=== PATIENT | male | born 1955 | race Caucasian/White ===

== ENCOUNTER → 2020-11-15 13:38 | Outpatient (BNVA) | payer OTHER, SELFPAY | PROVIDERS: PCP Internal Medicine; Referring Provider Internal Medicine; Visit Provider Urology ==

== ENCOUNTER 2021-06-12 08:17 | Outpatient (REF) | payer OTHER, SELFPAY ==
[2021-06-12 11:12] LABS: Prostate Specific Antigen 4.53 ng/mL (<0.05-4.0)
== END 2021-06-12 08:18 | disposition home or self-care (01) ==
LOC: HO.10HDL 08:17
PROVIDERS: Visit Provider Urology
DX: N40.1 Benign prostatic hyperplasia with lower urinary tract symptoms (principal); N13.8 Other obstructive and reflux uropathy
CPT/HCPCS: 36415; 84153

== ENCOUNTER → 2021-06-15 11:26 | Outpatient (BNVA) | payer OTHER, SELFPAY | PROVIDERS: PCP Internal Medicine; Visit Provider Urology ==

== ENCOUNTER 2021-06-29 11:17 | Outpatient (REF) | payer OTHER, SELFPAY ==
[2021-06-29 11:38] VITALS: BMI 32.0
[2021-06-29 11:40] VITALS: BP 140/79; PULSE 83; RESP 16; TEMP 36.7; O2SAT 98
--- NOTE | 2021-06-29 12:43 | W.PM.OPN ---
Operative Note Operative Note Date of Service: 06/29/21 Narrative: Preoperative diagnosis : Elevated psa PLAN FOR PROSTATE BIOPSY Procedure - prostate US prostate measurement Probe placed Measured in 3 dimensions for 75 cc Did not tolerate probe for local anesthetic Reschedule with OR sedation
[2021-06-29 12:45] VITALS: BP 140/75; PULSE 71; RESP 16
== END 2021-06-29 11:18 | disposition home or self-care (01) ==
LOC: HO.MS 11:17
PROVIDERS: Visit Provider Urology
PROC: (CPT 55700; principal; 2021-06-29 12:00)
DX: R97.20 Elevated prostate specific antigen [PSA] (principal)
CPT/HCPCS: 55700

== ENCOUNTER 2021-07-24 11:17 | Day surgery (SDC) | payer OTHER, SELFPAY ==
[2021-07-19 12:47] VITALS: BMI 31.9
--- NOTE | 2021-07-21 10:44 | P.CONAN_ITS ---
Documented by User: Kristie Del Rosario NP 07/21/21 10:45 HPI - Anesthesia Eval Consult details Narrative: 65yo M for Prostate Needle Biopsy PMFSH Active Problems Active Problems: All Active Problems (Updated 07/19/21 @ 12:53 by Alisia Oakley, RN) BPH w urinary obs/LUTS (Acute) Weak urinary stream (Acute) Erectile dysfunction (Acute) Past Medical History Medical History Arthritis Asthma Back pain BPH (benign prostatic hyperplasia) COVID-19 COVID-19 vaccine series completed Diabetes Elevated cholesterol Failure of attempted procedure GERD (gastroesophageal reflux disease) Gout Sleep apnea Surgical History Surgical History H/O colonoscopy History of esophagogastroduodenoscopy (EGD) History of total left knee replacement Social History Social History Are you a primary critical care transport nurse to a significant other at home: No Do you presently have visiting nurse or other home services: No Patient Tobacco Use Status: Never used Tobacco Use of substances other than those prescribed or required for medical reasons: No Have you been hit, kicked, punched, or otherwise hurt by someone within the past year? If so, by whom?: No Are you DNR?: No Advance Directives Information Provided: Yes (as above noted) Advance Directives on File: No Recently lost weight without trying: No Eating poorly because of decreased appetite: No Nutrition Risks: No Nutritional Risk Poor oral hygiene: No Meds Allergies Allergy/AdvReac Type Severity Reaction Status Date / Time aspirin Allergy Intermediate exacerbates Verified 07/19/21 12:46 asthma Home Medications Medication Instructions Recorded Confirmed Last Taken Type allopurinol 300 mg tablet 300 mg PO DAILY 11/15/20 07/19/21 Unknown History blood sugar diagnostic #10 ea 11/15/20 06/15/21 Unknown History flu vac qv 2019(18yr up)rc(PF) ml IM 11/15/20 06/15/21 Unknown History insulin glargine 100 unit/mL (3 18 unit SUBCUT QPM 11/15/20 07/19/21 Unknown History mL) subcutaneous pen lisinopril 10 mg tablet 10 mg PO DAILY 11/15/20 07/19/21 Unknown History montelukast 10 mg tablet 10 mg PO QPM 11/15/20 07/19/21 Unknown History omeprazole 20 mg capsule,delayed 20 mg PO BID 11/15/20 07/19/21 Unknown History release pen needle, diabetic 32 gauge x #50 ea 11/15/20 06/15/21 Unknown History rosuvastatin 10 mg tablet 10 mg PO DAILY 11/15/20 07/19/21 Unknown History tamsulosin 0.4 mg capsule 0.4 mg PO DAILY 11/15/20 07/19/21 Unknown History albuterol sulfate 90 mcg/actuation 2 puff INHALATION QID PRN 07/19/21 07/19/21 Unknown History aerosol inhaler metformin 500 mg tablet,extended 1 tab PO BID 07/19/21 07/19/21 Unknown History release 24 hr Exam Exam Date and Time: July 21, 2021 1044 Height,Weight and Vital Signs: Height 6 ft 1 in Weight 109.769 kg Assessment and Plan Assessment Anesthesia Assessment: Chart Reviewed Documented by User: Malia Carson MD 07/24/21 12:16 [facility] Past Medical History Medical History Arthritis Asthma Back pain BPH (benign prostatic hyperplasia) COVID-19 COVID-19 vaccine series completed Diabetes Elevated cholesterol Failure of attempted procedure GERD (gastroesophageal reflux disease) Gout Sleep apnea Surgical History Surgical History H/O colonoscopy History of esophagogastroduodenoscopy (EGD) History of total left knee replacement History of Problems with Anesthesia: No Social History Social History Are you a primary critical care transport nurse to a significant other at home: No Do you presently have visiting nurse or other home services: No Patient Tobacco Use Status: Never used Tobacco Use of substances other than those prescribed or required for medical reasons: No Have you been hit, kicked, punched, or otherwise hurt by someone within the past year? If so, by whom?: No Are you DNR?: No Advance Directives Information Provided: Yes (as above noted) Advance Directives on File: No Recently lost weight without trying: No Eating poorly because of decreased appetite: No Nutrition Risks: No Nutritional Risk Poor oral hygiene: No Meds Allergies Allergy/AdvReac Type Severity Reaction Status Date / Time aspirin Allergy Intermediate exacerbates Verified 07/19/21 12:46 asthma Home Medications Medication Instructions Recorded Confirmed Last Taken Type allopurinol 300 mg tablet 300 mg PO DAILY 11/15/20 07/19/21 Unknown History blood sugar diagnostic #10 ea 11/15/20 06/15/21 Unknown History flu vac qv 2019(18yr up)rc(PF) ml IM 11/15/20 06/15/21 Unknown History insulin glargine 100 unit/mL (3 18 unit SUBCUT QPM 11/15/20 07/19/21 Unknown History mL) subcutaneous pen lisinopril 10 mg tablet 10 mg PO DAILY 11/15/20 07/19/21 Unknown History montelukast 10 mg tablet 10 mg PO QPM 11/15/20 07/19/21 Unknown History omeprazole 20 mg capsule,delayed 20 mg PO BID 11/15/20 07/19/21 Unknown History release pen needle, diabetic 32 gauge x #50 ea 11/15/20 06/15/21 Unknown History rosuvastatin 10 mg tablet 10 mg PO DAILY 11/15/20 07/19/21 Unknown History tamsulosin 0.4 mg capsule 0.4 mg PO DAILY 11/15/20 07/19/21 Unknown History albuterol sulfate 90 mcg/actuation 2 puff INHALATION QID PRN 07/19/21 07/19/21 Unknown History aerosol inhaler metformin 500 mg tablet,extended 1 tab PO BID 07/19/21 07/19/21 Unknown History release 24 hr Exam Airway Mallampati Class: III (Full cavazos) TM Dist: >3cm Neck ROM: Full Loose/Missing/Broken Teeth: No Heart: RRR Lungs: CTA Assessment and Plan Assessment Anesthesia Assessment: Anesthesia Plan Discussed Final Anesthetic Review History of Problems with Anesthesia: No NPO: Yes ASA Class: II Final Preanesthetic Review: Meds/Allgs Chart Reviewed, Consent Obtained/Reviewed and Anes Risks/Benef Reviewed Patient Risk: Low Procedure Risk: Low Anesthetic Plan Anesthetic Plan: MAC: Disposition: Standard PACU
[2021-07-24 11:37] VITALS: BP 141/86; PULSE 83; RESP 16; TEMP 36.7; O2SAT 98
[2021-07-24 11:51] LABS: Glucose, Whole Blood 150 mg/dL (60-115)
[2021-07-24] MEDS: Lactated Ringers 1,000 ML 100 ML IVCONT (11:57)
--- NOTE | 2021-07-24 12:04 | P.HPSUR_ITS ---
Pre-Procedural Eval Section A Date of Service: 07/24/21 Section B Chief Complaint: elevated prostate - To be done in the OR Details of Present Illness: prostate biopsy - did not tolerate in minor Relevant Family History (Specify if Yes): No Relevant Social History: None Present Medications: see Short Stay Collaborative assessment Medical History: No relevant PMH History of Previous Operations: Relevant previous surgery/procedure and date(s) Allergies: Allergies Allergy/AdvReac Type Severity Reaction Status Date / Time aspirin Allergy Intermediate exacerbates Verified 07/19/21 12:46 asthma Review of Systems Sugical H&P ROS: Negative: Constitution, Cardiovascular, Respiratory, Neurological, Psychiatric, Hem-Onc, Allergic/Immunologic, Gastrointestinal, Genitourinary, Musculoskeletal, Integumentary, Endocrine and Eyes/Ears/N ose/Throat Exam Surgical H&P Exam: Normal: HEENT, Normal: Heart, Normal: Lungs, Normal: Extremities, Normal: Abdomen, Normal: Skin and Normal: Neurological Plan Diagnosis/Plan: Unchanged (prostate biopsy) I have reviewed the history and physical and performed a pertinent physical examination on my patient. No changes have occurred unless specified.
--- NOTE | 2021-07-24 12:49 | W.PM.OPN ---
Operative Note Operative Note Date of Service: 07/24/21 Narrative: Preoperative diagnosis: Elevated PSA Postoperative diagnosis: Elevated PSA Procedure: 1. transrectal ultrasound measurement of prostate 2. transrectal ultrasound-guided pudendal nerve block 3. transrectal ultrasound-guided prostate biopsy 12 core Surgeon: Dr. David Holland Anesthetic: sedation Indications for procedure: Elevated PSA 4.53, failed biopsy as outpatient Procedure: After informed consent was verified, the patient was brought into the procedure area and lay left-hand side down on the table. Patient identity confirmed. Perioperative antibiotics confirmed. Gel was placed per rectum Ultrasound probe was placed per rectum The prostate was measured in 3 dimensions Total volume equals greater than 5cm all dimensions 105 gm There were no cystic structures and no calcifications noted and the prostate was homogeneous in nature A ultrasound-guided pudendal nerve block was performed using 10 cc of 1% lidocaine. 8 cc was placed at the base and 2 cc of the apex. A 12 core biopsy was performed with 6 cores each side. Two cores were taken at the apex, mid and base. Cores were spaced between lateral and medial. He tolerated the procedure well. Was able to ambulate to bathroom after 5 minutes. Printed instructions regarding antibiotic use and common side effects such as low-grade temperature and bleeding were given.
[2021-07-24 13:00] VITALS: BP 105/70; PULSE 89; RESP 19; TEMP 36.3; O2SAT 98
[2021-07-24 13:15] VITALS: BP 124/75; PULSE 84; RESP 18; O2SAT 96
[2021-07-24 13:30] VITALS: BP 118/78; PULSE 78; RESP 16; TEMP 36.3; O2SAT 96
== END 2021-07-24 14:20 | disposition home or self-care (01) ==
PROVIDERS: Visit Provider Urology
PROC: (CPT 55700; principal; 2021-07-24 13:10)
DX: C61 Malignant neoplasm of prostate (principal); E11.9 Type 2 diabetes mellitus without complications; J45.909 Unspecified asthma, uncomplicated; Z79.4 Long term (current) use of insulin; Z79.899 Other long term (current) drug therapy; Z88.6 Allergy status to analgesic agent
CPT/HCPCS: 55700; 76942; 82947; 88305; 88344; J1956; J2250; J3010

== ENCOUNTER → 2021-08-01 14:40 | Outpatient (BNVA) | payer OTHER, SELFPAY | PROVIDERS: PCP Internal Medicine; Visit Provider Urology ==

== ENCOUNTER → 2021-08-31 09:47 | Outpatient (BNVA) | payer OTHER, SELFPAY | PROVIDERS: PCP Internal Medicine; Visit Provider Urology ==

== ENCOUNTER → 2021-09-14 11:19 | Outpatient (BNVA) | payer OTHER, SELFPAY | PROVIDERS: PCP Internal Medicine; Visit Provider Urology | DX: C61 Malignant neoplasm of prostate (principal) | CPT/HCPCS: 96402; J9217 ==

== ENCOUNTER 2021-10-16 12:22 | Day surgery (SDC) | payer OTHER, SELFPAY ==
[2021-10-16 12:36] VITALS: BP 152/86; PULSE 75; RESP 18; TEMP 36.2; O2SAT 97; BMI 31.1
[2021-10-16 12:43] LABS: Glucose, Whole Blood 108 mg/dL (60-115)
--- NOTE | 2021-10-16 13:58 | MHC.SHP ---
Pre-Procedural Eval Section A Date of Service: 10/16/21 The patient is an INPATIENT: No Changes since office visit: No Cold of Flu in the past 2 weeks, No New Medical Problems, No Changes in Medication and No Patient answered all questions The History & Physical has been completed within 30 days and I have reviewed it.: Yes Section B Chief Complaint: malignant neoplasm of prostate Allergies: Allergies Allergy/AdvReac Type Severity Reaction Status Date / Time aspirin Allergy Intermediate exacerbates Verified 08/31/21 09:48 asthma Plan Diagnosis/Plan: Unchanged (Gold seed marker placement under sedation) I have reviewed the history and physical and performed a pertinent physical examination on my patient. No changes have occurred unless specified.
--- NOTE | 2021-10-16 13:59 | HO.ANESPROP2 ---
HPI - Anesthesia Eval Consult details Narrative: 66 M for Gold seed markers PMFSH Active Problems Active Problems: All Active Problems (Updated 08/31/21 @ 10:41 by David Holland MD) Prostate cancer (Acute) Elevated PSA (Acute) BPH w urinary obs/LUTS (Acute) Weak urinary stream (Acute) Erectile dysfunction (Acute) Past Medical History Medical History Arthritis Asthma Back pain BPH (benign prostatic hyperplasia) COVID-19 COVID-19 vaccine series completed Diabetes Elevated cholesterol Failure of attempted procedure GERD (gastroesophageal reflux disease) Gout Sleep apnea Family History Family history of problems with anesthesia: No Surgical History Surgical History H/O colonoscopy History of esophagogastroduodenoscopy (EGD) History of total left knee replacement History of Problems with Anesthesia: No Social History Social History Are you a primary geriatric care manager to a significant other at home: No Do you presently have visiting nurse or other home services: No Patient Tobacco Use Status: Never used Tobacco Second Hand Smoke Exposure: No Use of substances other than those prescribed or required for medical reasons: No Are you DNR?: No Advance Directives: No Advance Directives Information Provided: Yes Advance Directives on File: No Meds Allergies Allergy/AdvReac Type Severity Reaction Status Date / Time aspirin Allergy Intermediate exacerbates Verified 08/31/21 09:48 asthma Home Medications Medication Instructions Recorded Confirmed Last Taken Type allopurinol 300 mg tablet 300 mg PO DAILY 11/15/20 07/19/21 Unknown History blood sugar diagnostic #10 ea 11/15/20 06/15/21 Unknown History flu vac qv 2019(18yr up)rc(PF) ml IM 11/15/20 06/15/21 Unknown History insulin glargine 100 unit/mL (3 18 unit SUBCUT QPM 11/15/20 07/19/21 Unknown History mL) subcutaneous pen lisinopril 10 mg tablet 10 mg PO DAILY 11/15/20 07/19/21 Unknown History montelukast 10 mg tablet 10 mg PO QPM 11/15/20 07/19/21 Unknown History omeprazole 20 mg capsule,delayed 20 mg PO BID 11/15/20 07/19/21 Unknown History release pen needle, diabetic 32 gauge x #50 ea 11/15/20 06/15/21 Unknown History rosuvastatin 10 mg tablet 10 mg PO DAILY 11/15/20 07/19/21 Unknown History tamsulosin 0.4 mg capsule 0.4 mg PO DAILY 11/15/20 07/19/21 Unknown History albuterol sulfate 90 mcg/actuation 2 puff INHALATION QID PRN 07/19/21 07/19/21 Unknown History aerosol inhaler metformin 500 mg tablet,extended 1 tab PO BID 07/19/21 07/19/21 Unknown History release 24 hr Exam Exam Date and Time: October 16, 2021 1359 Height,Weight and Vital Signs: Height 6 ft 1 in Weight 107.048 kg Last Vital Signs Temp 97.1 F 10/16/21 12:36 Pulse 75 10/16/21 12:36 Resp 18 10/16/21 12:36 BP 152/86 H 10/16/21 12:36 Pulse Ox 97 10/16/21 12:36 Pertinent Lab Results Pertinent Lab Results: Laboratory Tests 10/16/21 12:41 POC Glucose 108 Airway Mallampati Class: II TM Dist: >3cm Neck ROM: Full Loose/Missing/Broken Teeth: Yes (Chipped ) Heart: rrr Lungs: bl breath sounds Assessment and Plan Assessment Anesthesia Assessment: Anesthesia Plan Discussed Final Anesthetic Review Family History of Problems with Anesthesia: No History of Problems with Anesthesia: No NPO: Yes ASA Class: III Final Preanesthetic Review: Meds/Allgs Chart Reviewed and Anes Risks/Benef Reviewed Patient Risk: Intermediate Procedure Risk: Intermediate Anesthetic Plan Anesthetic Plan: MAC: Disposition: Standard PACU
--- NOTE | 2021-10-16 14:01 | MHC.SHP ---
Pre-Procedural Eval Section A Date of Service: 10/16/21 Section B Chief Complaint: malignant neoplasm of prostate Details of Present Illness: High-grade Kyle disease Relevant Family History (Specify if Yes): No Relevant Social History: None Present Medications: see Short Stay Collaborative assessment Medical History: No relevant PMH History of Previous Operations: Relevant previous surgery/procedure and date(s) Allergies: Allergies Allergy/AdvReac Type Severity Reaction Status Date / Time aspirin Allergy Intermediate exacerbates Verified 08/31/21 09:48 asthma Review of Systems Sugical H&P ROS: Negative: Constitution, Cardiovascular, Respiratory, Neurological, Psychiatric, Hem-Onc, Allergic/Immunologic, Gastrointestinal, Genitourinary, Musculoskeletal, Integumentary, Endocrine and Eyes/Ears/Nose/Throat Exam Surgical H&P Exam: Normal: HEENT, Normal: Heart, Normal: Lungs, Normal: Extremities, Normal: Abdomen, Normal: Skin and Normal: Neurological Plan Diagnosis/Plan: Unchanged (Gold seed markers placement) I have reviewed the history and physical and performed a pertinent physical examination on my patient. No changes have occurred unless specified.
[2021-10-16 14:45] VITALS: BP 117/53; PULSE 69; RESP 14; TEMP 36.2; O2SAT 95
--- NOTE | 2021-10-16 14:45 | W.PM.OPN ---
Operative Note Operative Note Date of Service: 10/16/21 Narrative: Preoperative diagnosis: Prostate cancer Postoperative diagnosis: Prostate cancer Procedure: 1. Transrectal ultrasound-guided pudendal nerve block 2. Transrectal ultrasound-guided gold seed placement Surgeon: Dr. David Holland Anesthetic: Sedation Indications for procedure: Prostate Cancer Procedure: After informed consent was verified, the patient was brought into the procedure area and lay left-hand side down on the table. Patient identity confirmed. Perioperative antibiotics confirmed. Gel was placed per rectum Ultrasound probe was placed per rectum A ultrasound-guided pudendal nerve block was performed using 10 cc of 1% lidocaine. 8 cc was placed at the base and 2 cc of the apex. 3 gold seed markers placed. 2 on the right, 1 on the left. The purpose is for triangulation. He tolerated the procedure well. Was able to ambulate to bathroom after 5 minutes. Printed instructions regarding antibiotic use and common side effects such as low-grade temperature and bleeding were given
[2021-10-16 15:00] VITALS: BP 132/85; PULSE 74; RESP 16; TEMP 36.2; O2SAT 95
== END 2021-10-16 15:19 | disposition home or self-care (01) ==
PROVIDERS: PCP Internal Medicine; Visit Provider Urology
PROC: (CPT 55876; principal; 2021-10-16 13:30)
DX: C61 Malignant neoplasm of prostate (principal); E11.9 Type 2 diabetes mellitus without complications; J45.909 Unspecified asthma, uncomplicated; Z79.899 Other long term (current) drug therapy; Z79.4 Long term (current) use of insulin; Z86.16 Personal history of COVID-19; Z88.8 Allergy status to other drugs, medicaments and biological substances; K21.9 Gastro-esophageal reflux disease without esophagitis
CPT/HCPCS: 55876; 76942; 82947; A4648; J2250; J3010

== ENCOUNTER → 2022-01-18 11:04 | Outpatient (BNVA) | payer OTHER, SELFPAY | PROVIDERS: PCP Internal Medicine; Visit Provider Urology | DX: C61 Malignant neoplasm of prostate (principal) | CPT/HCPCS: 51798 ==

== ENCOUNTER → 2022-03-15 09:02 | Outpatient (BNVA) | payer OTHER, SELFPAY | PROVIDERS: PCP Internal Medicine; Visit Provider Urology | DX: C61 Malignant neoplasm of prostate (principal) | CPT/HCPCS: 51798 ==

== ENCOUNTER → 2022-04-02 09:47 | Outpatient (BNVA) | payer OTHER, SELFPAY | PROVIDERS: PCP Internal Medicine; Visit Provider Urology | DX: C61 Malignant neoplasm of prostate (principal) | CPT/HCPCS: J9217 ==

== ENCOUNTER → 2022-06-19 14:45 | Outpatient (BNVA) | payer OTHER, SELFPAY | PROVIDERS: PCP Internal Medicine; Visit Provider Urology | DX: N40.1 Benign prostatic hyperplasia with lower urinary tract symptoms (principal); N13.8 Other obstructive and reflux uropathy; C61 Malignant neoplasm of prostate | CPT/HCPCS: 51798 ==

== ENCOUNTER → 2022-10-03 11:12 | Outpatient (BNVA) | payer OTHER, SELFPAY | PROVIDERS: PCP Internal Medicine; Visit Provider Urology | DX: C61 Malignant neoplasm of prostate (principal); R39.15 Urgency of urination | CPT/HCPCS: 96402; J9217 ==

== ENCOUNTER → 2023-01-02 14:46 | Outpatient (BNVA) | payer OTHER, SELFPAY | PROVIDERS: PCP Internal Medicine; Visit Provider Urology | DX: Z13.89 Encounter for screening for other disorder (principal) ==

== ENCOUNTER → 2023-04-12 12:55 | Outpatient (BNVA) | payer OTHER, SELFPAY | PROVIDERS: PCP Internal Medicine; Visit Provider Urology ==

== ENCOUNTER 2023-08-12 14:27 | Outpatient (AMB) | payer MEDICARE, OTHER, SELFPAY ==
--- NOTE | 2023-08-12 14:27 | MHC.OFFVIS ---
Intake Intake Visit Reasons: 3M PSA/Testosterone(labs?) Intake Note: Patient presents for tele visit follow up labs/prostate cancer Urology Medications: finasteride, tadaladil Blood Thinner: aspirin Websphere Commerce Developer Required: No Allergies aspirin Allergy (Intermediate, Verified 08/12/23 20:45) exacerbates asthma Medication List - Last Reconciled 08/12/23 by Shirley Ball, CMM PROGRAMMER- albuterol sulfate 90 mcg/actuation 2 puffs inhalation QID PRN allopurinol 300 mg PO DAILY blood sugar diagnostic As directed empagliflozin (Jardiance) 10 mg PO DAILY fluticasone propionate 110 mcg/actuation (Flovent HFA) 1 puff PO BID insulin glargine 18 units subcut QPM insulin glargine-yfgn (Semglee (insulin glargine-yfgn) Pen) 18 units subcut DAILY lisinopril 10 mg PO DAILY metformin ER 1 tab PO BID metoprolol succinate ER 25 mg PO DAILY montelukast 10 mg PO QPM omeprazole 20 mg PO BID pen needle, diabetic As directed rosuvastatin 20 mg PO DAILY HPI HPI Comments History of Present Illness Details Rex is a very pleasant 67-year-old male patient of Dr. Villafuerte. He has a past medical history of gout, arthritis, back pain, sleep apnea unable to tolerate CPAP, asthma, BPH, GERD, diabetes, hypercholesteremia, and prostate cancer. He is being followed up on today via telehealth for his history of prostate cancer. In discussion with the patient today reports to be doing and feeling well. Recent PSA results reviewed with the patient and his today. --Testosterone <3 and PSA <0.10 as noted below. When asked he denies any bothersome urinary issues or concerns at this time. She reports to be happy with current voiding parameters. PREVIOUS OFFICE NOTE------ Urination stable with control Hot flashes fully resolved Current other side effects include mild fatigue, some modification of strength Continue three-month follow-up till 2 years from completion of therapy Prostate cancer June 2021 PSA 4.5 Felda 4+4 - initial therapy 18 month GnRH with external beam radiation at [facility] completed December 2021 - Last GnRH 10/18 PSA 03/18 0.1 T 11, 06/18 0.1 T 3, 10/18 0.1 T3, 01/17 0.1 T3, 10/23 PSA <0.1, T<3. Initial therapy external beam radiation with 18 months hormone therapy via [facility] 01/[address] Holland June 2021 Initial PSA at diagnosis 4.5 Histologic type: Adenocarcinoma; acinar type Histologic grade:? Felda score: 4+4=8? % of pattern 4: 100%? % of pattern 5: 0% Grade group: 4 Tumor quantitation:? Number cores positive: 3? Total number of cores: 12? % of tissue involved: 5-10% of all tissue examined - left mid lateral 30%, left apex lateral 30%, left apex medial 20% - Total - 7% Periprostatic fat inv.: Not identified, Seminal vesicle inv.: Not identified, Perineural inv.: Present, LVI: Not identified Staging - 08/17 prostate MRI with 1.7 cm left apical posterior lesion, irregularity of prostate bowel injury suggestive of ISAURA, 1.4 cm pelvic sidewall node noted - 08/17 bone scan no evidence of disease PFSH Medical History Gout Arthritis Back pain Sleep apnea Asthma COVID-19 vaccine series completed COVID-19 Failure of attempted procedure BPH (benign prostatic hyperplasia) GERD (gastroesophageal reflux disease) Diabetes Elevated cholesterol Surgical History H/O colonoscopy History of esophagogastroduodenoscopy (EGD) History of total left knee replacement Social History Are you a primary landcare facilitator to a significant other at home: No Do you presently have visiting nurse or other home services: No Patient Tobacco Use Status: Never used Tobacco Second Hand Smoke Exposure: No Review of Systems Const Reports as per HPI Eyes Reports no additional complaints ENT Reports no additional complaints Card Reports as per HPI Resp Reports as per HPI GI Reports as per HPI Reports as per HPI Neuro Reports no additional complaints Psych Reports no additional complaints Endo Reports as per HPI Physical Exam Const General: cooperative Orientation/consciousness: patient oriented x3 Resp Effort & Inspection: able to speak in complete sentences Neuro General: patient oriented x3 Psych Speech and movement: Clear speech present Attitude: cooperative Thought process: Normal thought process present Thought content: Normal thought content present Insight: Fair insight present (Psych) Judgement: Fair judgement present (Psych) Assessment & Plan Assessment & Plan (1) Prostate cancer: Comment: June 2021 high-grade prostate cancer Kyle 8 - EXBRT and hormone therapy Code(s): C61 - Malignant neoplasm of prostate Plan Recent PSA and testosterone results reviewed with the patient today; as noted above. Patient denies any bothersome urinary issues or concerns at this time. Patient reports to be happy with current voiding parameters. Will obtain PSA and testosterone levels in 3 months. Follow-up in 3 months with labs to be completed prior; or sooner with any issues, concerns, and or questions Orders: Orders Testosterone, Total 3 Months C61 - Malignant neoplasm of prostate Prostate Specific Antigen 3 Months C61 - Malignant neoplasm of prostate Medications: Discontinued tadalafil Discontinued Reason: Doctor's Order 10 mg PO DAILY 90 days 90 tabs 1RF N52.9 - Male erectile dysfunction, unspecified finasteride Discontinued Reason: Doctor's Order 5 mg PO DAILY 90 days 90 tabs 1RF N52.9 - Male erectile dysfunction, unspecified Patient Instructions: The patient had an opportunity to ask questions regarding the treatment plan. All questions were answered. Physical exam, labs, and imaging were discussed and reviewed in detail. As well as risks, benefits, and discussion of treatment choices. No major barriers to understanding were identified. The patient expressed understanding and agreement with the above treatment plan. The patient was made aware they should contact our office by phone for worsening of their current condition, the appearance of new symptoms, or with any questions or concerns. Compliance is encouraged with any medications and follow up testing that is ordered. It is a privilege to be allowed the opportunity to participate in? your urological care.? Again, if you have any questions or concerns If you have any questions or concerns please do not hesitate to contact me. The office is [phone]. This note is constructed using voice recognition software. While every effort has been made to ensure accuracy juice weigher errors may have been included. Yours sincerely, MADISON Gonzalez- Telehealth Telehealth Location of provider rendering services: practice address Location of patient: address on file Patient Identification confirmed using: Name, : Yes Telehealth method: voice only Patient verbally consented to treatment: Yes Patient verbally consented to billing insurance company: Yes Patient informed of any privacy concerns related to visit: Yes Minutes spent on Phone/Video with Pt.: 15 Coding Level of Care Code Tele Est Pt Level 2 (45442) Diagnoses Prostate cancer C61 Time Spent (min) 15
== END 2023-08-12 15:12 | disposition home or self-care (01) ==
LOC: HO.HUSH 14:27
PROVIDERS: PCP Internal Medicine; Visit Provider Nurse Practitioner Family
DX: C61 Malignant neoplasm of prostate (principal)
CPT/HCPCS: 99442

== ENCOUNTER → 2023-08-12 14:27 | Outpatient (BNVA) | payer MEDICARE, OTHER, SELFPAY | PROVIDERS: PCP Internal Medicine; Visit Provider Nurse Practitioner Family ==

== ENCOUNTER 2023-12-24 14:06 | Outpatient (AMB) | payer MEDICARE, OTHER, SELFPAY ==
--- NOTE | 2023-12-24 14:24 | A.OFFVIS_ITS ---
Intake Intake Visit Reasons: 3m PSA/Testosterone(set) Intake Note: Patient presents today for follow up Prostate Cancer and labs PSA: 0.1 Total Testosterone: 36 Urology Medications: none Blood Thinner: none Patient stated he takes aspirin sometimes for headache. 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 Accompanied by: Allergies aspirin Allergy (Mild, Verified 12/24/23 20:23) exacerbates asthma Medication List - Last Reconciled 12/24/23 by KAYLENE Gonzalez albuterol sulfate 90 mcg/actuation 2 puffs inhalation QID PRN allopurinol 300 mg PO DAILY blood sugar diagnostic As directed empagliflozin (Jardiance) 10 mg PO DAILY fluticasone propionate 110 mcg/actuation (Flovent HFA) 1 puff PO BID insulin glargine 18 units subcut QPM lisinopril 10 mg PO DAILY metformin ER 1 tab PO BID metoprolol succinate ER 25 mg PO DAILY montelukast 10 mg PO QPM omeprazole 20 mg PO BID pen needle, diabetic As directed rosuvastatin 20 mg PO DAILY tadalafil (Cialis) 15 mg (1.5 x 10 mg) PO .PRN 30 days tadalafil (Cialis) 5 mg PO DAILY 90 days HPI HPI Comments History of Present Illness Details Rex is a very pleasant 68-year-old male patient of Dr. Villafuerte who was accompanied by his at today's office visit. He has a past medical history of gout, arthritis, back pain, sleep apnea unable to tolerate CPAP, asthma, BPH, GERD, diabetes, hypercholesteremia, and prostate cancer. He presents to the office today for follow-up of his prostate cancer. In discussion with the patient today reports to be doing and feeling well. Recent PSA results reviewed with the patient and his today. 12/21 Testosterone 32 and PSA <0.1 as noted and trended below. When asked he denies any bothersome urinary issues. He does continue feeling tired at times as well as experiencing erectile dysfunction. He discusses prior to his history of prostate cancer he had struggled with erectile dysfunction and tried p.o. medications and felt this was helpful. Discussed at length potential treatment options for erectile dysfunction. Discussed risks and benefits of these treatment options. Also discussed lifestyle modifications to assist with erectile dysfunction. Discussed correlation of testosterone with history of prostate cancer. Discussed slow rise in testosterone and potential for recovery in the near future. In office urinalysis results reviewed with the patient today. He otherwise offers no other issues or concerns at this time. PREVIOUS OFFICE NOTE------ Urination stable with control Hot flashes fully resolved Current other side effects include mild fatigue, some modification of strength Continue three-month follow-up till 2 years from completion of therapy After 2 years of completion of therapy will continue monitoring PSA every 6 months. Prostate cancer June 2021 PSA 4.5 [place] 4+4 - initial therapy 18 month GnRH with ext ernal beam radiation at [facility] completed December 2021 - Last GnRH 10/18 PSA 03/18 0.1 T 11, 06/18 0.1 T 3, 10/18 0.1 T3, 01/17 0.1 T3, 08/19 PSA <0.1, T<3, 12/21 PSA <0.1, T 36. Initial therapy external beam radiation with 18 months hormone therapy via [facility] 01/[address] Holland June 2021 Initial PSA at diagnosis 4.5 Histologic type: Adenocarcinoma; acinar type Histologic grade:? Kyle score: 4+4=8? % of pattern 4: 100%? % of pattern 5: 0% Grade group: 4 Tumor quantitation:? Number cores positive: 3? Total number of cores: 12? % of tissue involved: 5-10% of all tissue examined - left mid lateral 30%, left apex lateral 30%, left apex medial 20% - Total - 7% Periprostatic fat inv.: Not identified, Seminal vesicle inv.: Not identified, Perineural inv.: Present, LVI: Not identified Staging - 08/17 prostate MRI with 1.7 cm left ap ical posterior lesion, irregularity of prostate bowel injury suggestive of ISAURA, 1.4 cm pelvic sidewall node noted - 08/17 bone scan no evidence of disease PFSH Medical History Gout Arthritis Back pain Sleep apnea Asthma COVID-19 vaccine series completed COVID-19 Failure of attempted procedure BPH (benign prostatic hyperplasia) GERD (gastroesophageal reflux disease) Diabetes Elevated cholesterol Surgical History History of esophagogastroduodenoscopy (EGD) H/O colonoscopy History of total left knee replacement Social History Are you a primary home health care respiratory therapist to a significant other at home: No Do you presently have visiting nurse or other home services: No Patient Tobacco Use Status: Never used Tobacco Second Hand Smoke Exposure: No Review of Systems Const Reports as per [facility] Eyes Reports no additional complaints ENT Reports no additional complaints Card Reports as per [facility] Resp Reports as per [facility] GI Reports as per HPI Reports as per HPI Neuro Reports no additional complaints Psych Reports no additional complaints Endo Reports as per HPI Physical Exam Const General: cooperative, healthy appearing, comfortable, no acute distress, well developed, alert and awake Orientation/consciousness: patient oriented x3 Limitations: no limitations HEENT Head: Yes normal to inspection, Yes normocephalic and Yes atraumatic Ears: hearing grossly normal bilaterally Eyes General: appearance normal, both eyes and all related structures Neck Neck: Yes normal visual inspection and Yes trachea midline Chest Chest palpation & inspection: normal inspection of the chest Resp Effort & Inspection: normal respiratory effort and able to speak in complete sentences Cardio Rate: regular rate GI Inspection: Yes normal to inspection General: Yes no CVA tenderness Back/Spine/Pelvis Back: no CVA tenderness Skin General skin exam: no rashes or lesions noted Neuro General: patient oriented x3 Extrem General: Yes normal to inspection Psych Appearance: grossly normal and well kempt Mental Status: mental status grossly normal Speech and movement: Normal speech and movement present and Clear speech present Affect: normal affect Attitude: cooperative Thought process: Normal thought process present Thought content: Normal thought content present Insight: Fair insight present (Psych) Judgement: Fair judgement present (Psych) Results AMB Urinalysis, Automated UA Leukoctes 0 Franki/uL Last Edit by Natty Chopra CMA on 12/24/23 14 :34 UA Nitrite Negative Last Edit by Natty Chopra CMA on 12/24/23 14: 34 UA Urobilinogen 0.2 mg/dL Last Edit by Natty Chopra CMA on 4 14:34 UA Protein 0 mg/dL Last Edit by Natty Chopra [facility] on 12/24/23 14:34 UA pH 5.0 Last Edit by Natty Chopra [facility] on 12/24/23 14:34 UA Blood 0 Bryson/uL Last Edit by Natty Chopra [facility] on 12/24/23 14:34 UA Specific [place] 1.025 Last Edit by Natty Chopra [facility] on 14:34 UA Ketone Negative Last Edit by Natty Chopra [facility] on 12/24/23 14:3 4 UA Bilirubin 0 mg/dL Last Edit by Natty Chopra [facility] on 12/24/23 14: 34 UA Glucose 1000 mg/dL Last Edit by Natty Chopra [facility] on 12/24/23 14 :34 Results Reviewed Results Reviewed: Laboratory Last Values Urine pH (Auto) 5.0 12/24/23 14:29 Specific [place] (Auto) 1.025 12/24/23 14:29 Urine Protein (Auto) 0 mg/dL 12/24/23 14:29 Glucose (UA)(Auto) 1000 mg/dL 12/24/23 14:29 Urine Ketones (Auto) Negative 12/24/23 14:29 Urine Blood (Auto) 0 Bryson/uL 12/24/23 14:29 Urine Nitrite (Auto) Negative 12/24/23 14:29 Urine Bilirubin (Auto) 0 mg/dL 12/24/23 14:29 Urine Urobilinogen (Auto) 0.2 mg/dL 12/24/23 14:29 Leukocyte Esterase (Auto) 0 Franki/uL 12/24/23 14:29 Assessment & Plan Assessment & Plan (1) Prostate cancer: Comment: June 2021 high-grade prostate cancer [place] 8 - EXBRT and hormone therapy Code(s): C61 - Malignant neoplasm of prostate (2) Erectile dysfunction: Code(s): N52.9 - Male erectile dysfunction, unspecified Plan In office urinalysis results reviewed with the patient today; as noted above. Recent PSA and testosterone results reviewed with the patient today; as noted above. Discussed at length potential treatment options for erectile dysfunction; discussed risks and benefits of these treatment options at length. Discussed lifestyle modifications to assist with erectile dysfunction. Start low-dose Cialis as discussed and prescribed. P.r.n. prescription provided for on demand dosing. Patient otherwise denies any bothersome urinary issues. He reports to be happy with current voiding parameters. Will obtain PSA and testosterone in 3 months Follow-up in 3 months with lab to be completed prior; or sooner with any issues, concerns, and or questions. Orders: Orders AMB Urinalysis Automated Today R33.9 - Retention of urine, unspecified Prostate Specific Antigen 4 Months C61 - Malignant neoplasm of prostate Testosterone, Free/Total 3 Months C61 - Malignant neoplasm of prostate Medications: New tadalafil (Cialis) Take PRN one hour prior to sexual activity; not to exceed more than 2-3 times per week [id number] [facility] [id number] Member [id number] 15 mg (1.5 x 10 mg) PO .PRN 30 days 14 tabs 3RF tadalafil (Cialis) [id number] [id number] [id number] 5 mg PO DAILY 90 days 90 tabs 1RF Patient Instructions: The patient had an opportunity to ask questions regarding the treatment plan. All questions were answered. Physical exam, labs, and imaging were discussed and reviewed in detail. As well as risks, benefits, and discussion of treatment choices. No major barriers to understanding were identified. The patient expressed understanding and agreement with the above treatment plan. The patient was made aware they should contact our office by phone for worsening of their current condition, the appearance of new symptoms, or with any questions or concerns. Compliance is encouraged with any medications and follow up testing that is ordered. It is a privilege to be allowed the opportunity to participate in? your urological care.? Again, if you have any questions or concerns If you have any questions or concerns please do not hesitate to contact me. The office is [phone]. This note is constructed using voice recognition software. While every effort has been made to ensure accuracy seating and mobility technologist errors may have been included. Yours sincerely, KAYLENE Gonzalez Coding Level of Care Code Est Pt Level 4 (23578) Diagnoses Prostate cancer C61 Erectile dysfunction N52.9
== END 2023-12-24 15:18 | disposition home or self-care (01) ==
PROVIDERS: PCP Internal Medicine; Visit Provider Nurse Practitioner Family
DX: C61 Malignant neoplasm of prostate (principal); N52.9 Male erectile dysfunction, unspecified; R33.9 Retention of urine, unspecified
CPT/HCPCS: 99214

== ENCOUNTER → 2023-12-24 14:06 | Outpatient (BNVA) | payer MEDICARE, OTHER, SELFPAY | PROVIDERS: PCP Internal Medicine; Visit Provider Nurse Practitioner Family | DX: C61 Malignant neoplasm of prostate (principal); N52.9 Male erectile dysfunction, unspecified | CPT/HCPCS: 81003; 99212 ==

== ENCOUNTER 2024-04-24 10:32 | Outpatient (AMB) | payer MEDICARE, OTHER, SELFPAY ==
--- NOTE | 2024-04-24 10:46 | A.OFFVIS_ITS ---
Intake Visit Reasons: 4m/labs Intake Note: Patient presents today for follow up on: Prostate Cancer, CT Scan, and labs Testosterone: 167; Free Testosterone: 1.4; PSA: <0.1 Urology Medications: none Blood Thinner: none Director Dental Services Required: No Accompanied by: Allergies aspirin Allergy (Mild, Verified 04/24/24 11:42) exacerbates asthma Medication List - Last Reconciled 04/24/24 by MADISON Gonzalez- albuterol sulfate 90 mcg/actuation 2 puffs inhalation QID PRN allopurinol 300 mg PO DAILY blood sugar diagnostic As directed empagliflozin (Jardiance) 10 mg PO DAILY fluticasone propionate 110 mcg/actuation (Flovent HFA) 1 puff PO BID insulin glargine 18 units subcut QPM lisinopril 10 mg PO DAILY metformin ER 1 tab PO BID metoprolol succinate ER 25 mg PO DAILY montelukast 10 mg PO QPM omeprazole 20 mg PO BID pen needle, diabetic As directed rosuvastatin 20 mg PO DAILY semaglutide (Ozempic) mg subcut tadalafil (Cialis) 15 mg (1.5 x 10 mg) PO .PRN 30 days tadalafil (Cialis) 5 mg PO DAILY 90 days HPI Comments Details: Rex is a very pleasant 68-year-old male patient of Dr. Villafuerte who was accompanied by his at today's office visit. He has a past medical history of gout, arthritis, back pain, sleep apnea unable to tolerate CPAP, asthma, BPH, GERD, diabetes, hypercholesteremia, and prostate cancer. He presents to the office today for follow-up of his prostate cancer and nephrolithiasis. In discussion with the patient today reports to be doing and feeling well. He reports approximately 3 weeks ago seeking emergency room care at [facility] for right-sided flank pain he had been experiencing at which time a CT was ordered for further assessment evaluation. These results were reviewed with the patient and his today. 7 mm calculus in the proximal right ureter with associated mild proximal hydronephrosis. 9 mm sclerotic focus involving the L5 vertebral body. In setting of known personal history of prostate cancer, this lesion is indeterminate. Correlation with any prior outside studies is suggested. Consider assessment with bone scan per radiology report. Patient reports pain he had been experiencing has since subsided since last Saturday 04/14. However, he is unsure if he urinated any debris or renal calculi. In office urinalysis results reviewed with the patient today no microscopic hematuria noted. Discussed obtaining CT KUB for further assessment evaluation. Discussed near future bone scan. Recent PSA results reviewed with the patient and his today. 04/20 Testosterone 167 and PSA <0.1 as noted and trended below. When asked he denies any bothersome urinary issues. Discussed correlation of testosterone with history of prostate cancer. Discussed slow rise in testosterone and potential for recovery in the near future. He otherwise offers no other issues or concerns at this time. PREVIOUS OFFICE NOTE------ Urination stable with control Hot flashes fully resolved Current other side effects include mild fatigue, some modification of strength Continue three-month follow-up till 2 years from completion of therapy After 2 years of completion of therapy will continue monitoring PSA every 6 months. Prostate cancer June 2021 PSA 4.5 [place] 4+4 - initial therapy 18 month GnRH with external beam radiation at [facility] completed December 2021 - Last GnRH 10/18 PSA 03/18 0.1 T 11, 06/18 0.1 T 3, 10/18 0.1 T3, 01/17 0.1 T3, 08/19 PSA <0.1, T<3, 12/21 PSA <0.1, T 36, 04/20 PSA <0.1, T 167. Initial therapy external beam radiation with 18 months hormone therapy via [facility] 01/[address] Holland June 2021 Initial PSA at diagnosis 4.5 Histologic type: Adenocarcinoma; acinar type Histologic grade:? Kyle score: 4+4=8? % of pattern 4: 100%? % of pattern 5: 0% Grade group: 4 Tumor quantitation:? Number cores positive: 3? Total number of cores: 12? % of tissue involved: 5-10% of all tissue examined - left mid lateral 30%, left apex lateral 30%, left apex medial 20% - Total - 7% Periprostatic fat inv.: Not identified, Seminal vesicle inv.: Not identified, Perineural inv.: Present, LVI: Not identified Staging - 08/17 prostate MRI with 1.7 cm left apical posterior lesion, irregularity of prostate bowel injury suggestive of ISAURA, 1.4 cm pelvic sidewall node noted - 08/17 bone scan no evidence of disease PFSH Medical History Gout Arthritis Back pain Sleep apnea Asthma COVID-19 vaccine series completed COVID-19 Failure of attempted procedure BPH (benign prostatic hyperplasia) GERD (gastroesophageal reflux disease) Diabetes Elevated cholesterol Surgical History History of esophagogastroduodenoscopy (EGD) H/O colonoscopy History of total left knee replacement Social History Are you a primary critical care specialist to a significant other at home: No Do you presently have visiting nurse or other home services: No Patient Tobacco Use Status: Never used Tobacco Second Hand Smoke Exposure: No Review of Systems Const Reports as per HPI Eyes Reports no additional complaints ENT Reports no additional complaints Card Reports as per HPI Resp Reports as per HPI GI Reports as per HPI Reports as per HPI Neuro Reports no additional complaints Psych Reports no additional complaints Endo Reports as per HPI Physical Exam Const General: cooperative, healthy appearing, comfortable, no acute distress, well developed, alert and awake Orientation/consciousness: patient oriented x3 Limitations: no limitations HEENT Head: Yes normal to inspection, Yes normocephalic and Yes atraumatic Ears: hearing grossly normal bilaterally Eyes General: appearance normal, both eyes and all related structures Neck Neck: Yes normal visual inspection and Yes trachea midline Chest Chest palpation & inspection: normal inspection of the chest Resp Effort & Inspection: normal respiratory effort and able to speak in complete sentences Cardio Rate: regular rate GI Inspection: Yes normal to inspection General: Yes no CVA tenderness Back/Spine/Pelvis Back: no CVA tenderness Skin General skin exam: no rashes or lesions noted Neuro General: patient oriented x3 Extrem General: Yes normal to inspection Psych Appearance: grossly normal and well kempt Mental Status: mental status grossly normal Speech and movement: Normal speech and movement present and Clear speech present Affect: normal affect Attitude: cooperative Thought process: Normal thought process present Thought content: Normal thought content present Insight: Fair insight present (Psych) Judgement: Fair judgement present (Psych) Results AMB Urinalysis, Automated UA Leukoctes 0 Franki/uL Last Edit by Wendy Delgado on 04/24/24 10:59 UA Nitrite Negative Last Edit by Wendy Delgado on 04/24/24 10:59 UA Urobilinogen 0.2 mg/dL Last Edit by Wendy Delgado on 04/24/24 10:59 UA Protein 0 mg/dL Last Edit by Wendy Delgado on 04/24/24 10:59 UA pH 5.5 Last Edit by Wendy Delgado on 04/24/24 10:59 UA Blood 0 Bryson/uL Last Edit by Wendy Delgado on 04/24/24 10:59 UA Specific [place] 1.025 Last Edit by Wendy Delgado on 04/24/24 10:59 UA Ketone Negative Last Edit by Wendy Delgado on 04/24/24 10:59 UA Bilirubin 0 mg/dL Last Edit by Wendy Delgado on 04/24/24 10:59 UA Glucose 500 mg/dL Last Edit by Wendy Delgado on 04/24/24 10:59 Results Reviewed Results Reviewed: Laboratory Last Values Urine pH (Auto) 5.5 04/24/24 10:58 Specific [place] (Auto) 1.025 04/24/24 10:58 Urine Protein (Auto) 0 mg/dL 04/24/24 10:58 Glucose (UA)(Auto) 500 mg/dL 04/24/24 10:58 Urine Ketones (Auto) Negative 04/24/24 10:58 Urine Blood (Auto) 0 Bryson/uL 04/24/24 10:58 Urine Nitrite (Auto) Negative 04/24/24 10:58 Urine Bilirubin (Auto) 0 mg/dL 04/24/24 10:58 Urine Urobilinogen (Auto) 0.2 mg/dL 04/24/24 10:58 Leukocyte Esterase (Auto) 0 Franki/uL 04/24/24 10:58 Assessment & Plan Assessment & Plan (1) Prostate cancer: Comment: June 2021 high-grade prostate cancer [place] 8 - EXBRT and hormone therapy Code(s): C61 - Malignant neoplasm of prostate Category: Medical (2) Hydronephrosis concurrent with and due to calculi of kidney and ureter: Code(s): N13.2 - Hydronephrosis with renal and ureteral calculous obstruction Category: Medical (3) Nephrolithiasis: Code(s): N20.0 - Calculus of kidney Category: Medical Plan In office urinalysis results reviewed with the patient today; as noted above. Recent PSA and testosterone results reviewed with the patient and his today; as noted above. Recent CT results from [facility] were reviewed with the patient today Discussed obtaining stat CT KUB for further assessment evaluation as patient is unsure if he has passed his kidney stone. Discussed, educated, and stressed the importance of adequate hydration and relation to nephrolithiasis as well as overall health and well-being. He currently denies any bothersome urinary issues or concerns. He reports to be happy with his current voiding parameters. Discussed possible near future ureteroscopy however will await CT KUB results for further assessment evaluation; this was discussed at length. Follow-up in 1-2 weeks with imaging to be completed prior; or sooner with any issues, concerns, and or questions. Orders: Orders AMB Urinalysis Automated Today Z13.9 - Encounter for screening, unspecified CT kidney stone Today N13.2 - Hydronephrosis with renal and ureteral calculous obstruction, N20.0 - Calculus of kidney Patient Instructions: The patient had an opportunity to ask questions regarding the treatment plan. All questions were answered. Physical exam, labs, and imaging were discussed and reviewed in detail. As well as risks, benefits, and discussion of treatment choices. No major barriers to understanding were identified. The patient expressed understanding and agreement with the above treatment plan. The patient was made aware they should contact our office by phone for worsening of their current condition, the appearance of new symptoms, or with any questions or concerns. Compliance is encouraged with any medications and follow up testing that is ordered. It is a privilege to be allowed the opportunity to participate in? your urological care.? Again, if you have any questions or concerns If you have any questions or concerns please do not hesitate to contact me. The office is [phone]. This note is constructed using voice recognition software. While every effort has been made to ensure accuracy at home independent call center agent errors may have been included. Yours sincerely, KAYLENE Gonzalez Coding Level of Care Code Est Pt Level 4 (77163) Diagnoses Prostate cancer C61 Hydronephrosis concurrent with and due to calculi of kidney and ureter N13.2 Nephrolithiasis N20.0
== END 2024-04-24 11:16 | disposition home or self-care (01) ==
PROVIDERS: PCP Internal Medicine; Visit Provider Nurse Practitioner Family
DX: C61 Malignant neoplasm of prostate (principal); N13.2 Hydronephrosis with renal and ureteral calculous obstruction; N20.0 Calculus of kidney; Z13.9 Encounter for screening, unspecified
CPT/HCPCS: 99214

== ENCOUNTER → 2024-04-24 10:32 | Outpatient (BNVA) | payer MEDICARE, OTHER, SELFPAY | PROVIDERS: PCP Internal Medicine; Visit Provider Nurse Practitioner Family | DX: N20.0 Calculus of kidney (principal); N13.2 Hydronephrosis with renal and ureteral calculous obstruction; C61 Malignant neoplasm of prostate | CPT/HCPCS: 81003; 99212 ==

== ENCOUNTER 2024-04-29 14:33 | Outpatient (REF) | payer MEDICARE, OTHER, SELFPAY ==
--- NOTE | ~2024-04-29 | CT_ITS ---
EXAMINATION: CT SCAN OF THE ABDOMEN AND PELVIS WITHOUT CONTRAST CLINICAL INFORMATION: Additional Information: 688 mgycm kidney stones : . COMPARISON: None. TECHNIQUE: CT scan of the abdomen and pelvis was performed without contrast. Additional sagittal and coronal two-dimensional reconstruction imaging was obtained at the acquisition workstation. FINDINGS: LUNG BASES: Normal. LIVER: Normal. GALLBLADDER AND BILIARY TREE: Normal. PANCREAS: Normal. SPLEEN: Normal. ADRENAL GLANDS: Normal. URINARY TRACT (KIDNEYS, URETERS, BLADDER): There is a 6 mm proximal right ureteral calculus located 8 cm distal to the right renal pelvis. The calculus measures 6 mm period. Hounsfield units 949. There is mild dilatation of the urinary tract proximal to this calculus. No additional calculi in the urinary tract or right kidney Left kidney normal without calculus left ureter normal. No hydronephrosis. Bladder normal. PELVIC ORGANS: Metallic foci within the prostate. PERITONEAL CAVITY: Normal. MESENTERY/OMENTUM: Normal. GI TRACT (STOMACH, SMALL BOWEL, LARGE BOWEL): Normal. APPENDIX: Normal. LYMPH NODES: Normal. VASCULAR: Overall mild to moderate arterial calcification most prominent in the distal aorta ABDOMINAL WALL/SOFT TISSUES: Normal. SKELETAL: Severe degenerative disc changes at L5-S1 with vacuum disc phenomenon noted. Additional scattered nodules spondylosis throughout the partially visualized thoracolumbar spine.. CT/CT kidney stone IMPRESSION: 1. 6 mm proximal right ureteral calculus. Mild dilatation of the right collecting system proximal to the calculus 2. Mild to moderate arterial calcification. 3. Degenerative disc disease L5-S1.
== END 2024-04-29 14:34 | disposition home or self-care (01) ==
LOC: HO.CT 14:33
PROVIDERS: PCP Internal Medicine; Visit Provider Nurse Practitioner Family
DX: N13.2 Hydronephrosis with renal and ureteral calculous obstruction (principal)
CPT/HCPCS: 74176

== ENCOUNTER 2024-05-05 09:54 | Outpatient (AMB) | payer MEDICARE, OTHER, SELFPAY ==
--- NOTE | 2024-05-05 10:08 | A.OFFVIS_ITS ---
Intake Visit Reasons: 2 weeks follow up/ CT Intake Note: Patient presents today for follow up on: CT Scan Results Imagin04/29/24 Urology Medications: Tadalafil Blood Thinner: none Poll Watcher Required: No Accompanied by: Allergies aspirin Allergy (Mild, Verified 05/05/24 22:23) exacerbates asthma Medication List - Last Reconciled 05/05/24 by CONNOR GonzalezP- albuterol sulfate 90 mcg/actuation 2 puffs inhalation QID PRN allopurinol 300 mg PO DAILY blood sugar diagnostic As directed empagliflozin (Jardiance) 10 mg PO DAILY fluticasone propionate 110 mcg/actuation (Flovent HFA) 1 puff PO BID insulin glargine 18 units subcut QPM lisinopril 10 mg PO DAILY metformin ER 1 tab PO BID metoprolol succinate ER 25 mg PO DAILY montelukast 10 mg PO QPM omeprazole 20 mg PO BID pen needle, diabetic As directed rosuvastatin 20 mg PO DAILY semaglutide (Ozempic) mg subcut tadalafil (Cialis) 15 mg (1.5 x 10 mg) PO .PRN 30 days tadalafil (Cialis) 5 mg PO DAILY 90 days HPI Comments Details: Rex is a very pleasant 68-year-old male patient of Dr. Villafuerte who was accompanied by his at today's office visit. He has a past medical history of gout, arthritis, back pain, sleep apnea unable to tolerate CPAP, asthma, BPH, GERD, diabetes, hypercholesteremia, and prostate cancer. He presents to the office today for follow-up of his nephrolithiasis. Of note, patient was seen approximately 2 weeks ago at which time a CT KUB was ordered for further assessment evaluation. These results were reviewed with the patient today. 6 mm proximal right ureteral calculusagain noted. Mild dilatation of the right collecting system proximal to the calculus. Previous CT from [facility] noted 9 mm sclerotic focus involving the L5 vertebral body. In setting of known personal history of prostate cancer, this lesion is indeterminate. Correlation with any prior outside studies is suggested. Consider assessment with bone scan per radiology report. However, not noted on most recent CT KUB. Will obtain bone scan for further assessment evaluation. In discussion with the patient today reports to be doing and feeling well. Patient reports infrequent right-sided flank pain he otherwise denies any bothersome urinary issues or concerns. He denies denies urinary urgency, urinary frequency, incontinence, nocturia, hematuria, dysuria, foul smelling urine, changes to urinary stream, fever, and or chills. He is happy with his current voiding parameters. He otherwise offers no other issues or concerns at this time. PREVIOUS OFFICE NOTE------ Urination stable with control Hot flashes fully resolved Current other side effects include mild fatigue, some modification of strength Continue three-month follow-up till 2 years from completion of therapy After 2 years of completion of therapy will continue monitoring PSA every 6 months. Prostate cancer June 2021 PSA 4.5 [place] 4+4 - initial therapy 18 month GnRH with external beam radiation at [facility] completed December 2021 - Last GnRH 10/18 PSA 03/18 0.1 T 11, 06/18 0.1 T 3, 10/18 0.1 T3, 01/17 0.1 T3, 08/19 PSA <0.1, T<3, 12/21 PSA <0.1, T 36, 04/20 PSA <0.1, T 167. Initial therapy external beam radiation with 18 months hormone therapy via [facility] 01/[address] Holland June 2021 Initial PSA at diagnosis 4.5 Histologic type: Adenocarcinoma; acinar type Histologic grade:? Kyle score: 4+4=8? % of pattern 4: 100%? % of pattern 5: 0% Grade group: 4 Tumor quantitation:? Number cores positive: 3? Total number of cores: 12? % of tissue involved: 5-10% of all tissue examined - left mid lateral 30%, left apex lateral 30%, left apex medial 20% - Total - 7% Periprostatic fat inv.: Not identified, Seminal vesicle inv.: Not identified, Perineural inv.: Present, LVI: Not identified Staging - 08/17 prostate MRI with 1.7 cm left apical posterior lesion, irregularity of prostate bowel injury suggestive of ISAURA, 1.4 cm pelvic sidewall node noted - 08/17 bone scan no evidence of disease [facility] Medical History Gout Arthritis Back pain Sleep apnea Asthma COVID-19 vaccine series completed COVID-19 Failure of attempted procedure BPH (benign prostatic hyperplasia) GERD (gastroesophageal reflux disease) Diabetes Elevated cholesterol Surgical History History of esophagogastroduodenoscopy (EGD) H/O colonoscopy History of total left knee replacement Social History Are you a primary career portals teacher to a significant other at home: No Do you presently have visiting nurse or other home services: No Patient Tobacco Use Status: Never used Tobacco Second Hand Smoke Exposure: No Review of Systems Const Reports as per [facility] Eyes Reports no additional complaints ENT Reports no additional complaints Card Reports as per [facility] Resp Reports as per [facility] GI Reports as per [facility] Reports as per [facility] Neuro Reports no additional complaints Psych Reports no additional complaints Endo Reports as per [facility] Physical Exam Const General: cooperative, healthy appearing, comfortable, no acute distress, well developed, alert and awake Orientation/consciousness: patient oriented x3 Limitations: no limitations HEENT Head: Yes normal to inspection, Yes normocephalic and Yes atraumatic Ears: hearing grossly normal bilaterally Eyes General: appearance normal, both eyes and all related structures Neck Neck: Yes normal visual inspection and Yes trachea midline Chest Chest palpation & inspection: normal inspection of the chest Resp Effort & Inspection: normal respiratory effort and able to speak in complete sentences Cardio Rate: regular rate GI Inspection: Yes normal to inspection General: Yes no CVA tenderness Back/Spine/Pelvis Back: no CVA tenderness Skin General skin exam: no rashes or lesions noted Neuro General: patient oriented x3 Extrem General: Yes normal to inspection Psych Appearance: grossly normal and well kempt Mental Status: mental status grossly normal Speech and movement: Normal speech and movement present and Clear speech present Affect: normal affect Attitude: cooperative Thought process: Normal thought process present Thought content: Normal thought content present Insight: Fair insight present (Psych) Judgement: Fair judgement present (Psych) Results AMB Urinalysis, Automated UA Leukoctes 0 Franki/uL Last Edit by Wendy Delgado on 05/05/24 10:20 UA Nitrite Negative Last Edit by Wendy Delgado on 05/05/24 10:20 UA Urobilinogen 0.2 mg/dL Last Edit by Wendy Delgado on 05/05/24 10:20 UA Protein 0 mg/dL Last Edit by Wendy Delgado on 05/05/24 10:20 UA pH 5.5 Last Edit by Wendy Delgado on 05/05/24 10:20 UA Blood 0 Bryson/uL Last Edit by Wendy Delgado on 05/05/24 10:20 UA Specific [place] 1.020 Last Edit by Wendy Delgado on 05/05/24 10:20 UA Ketone Negative Last Edit by Wendy Delgado on 05/05/24 10:20 UA Bilirubin 0 mg/dL Last Edit by Wendy Delgado on 05/05/24 10:20 UA Glucose 1000 mg/dL Last Edit by Wendy Delgado on 05/05/24 10:20 Results Reviewed Results Reviewed: Laboratory Last Values Urine pH (Auto) 5.5 05/05/24 10:12 Specific [place] (Auto) 1.020 05/05/24 10:12 Urine Protein (Auto) 0 mg/dL 05/05/24 10:12 Glucose (UA)(Auto) 1000 mg/dL 05/05/24 10:12 Urine Ketones (Auto) Negative 05/05/24 10:12 Urine Blood (Auto) 0 Bryson/uL 05/05/24 10:12 Urine Nitrite (Auto) Negative 05/05/24 10:12 Urine Bilirubin (Auto) 0 mg/dL 05/05/24 10:12 Urine Urobilinogen (Auto) 0.2 mg/dL 05/05/24 10:12 Leukocyte Esterase (Auto) 0 Franki/uL 05/05/24 10:12 Date of Service: 04/29/24 EXAMINATION: CT SCAN OF THE ABDOMEN AND PELVIS WITHOUT CONTRAST FINDINGS: LUNG BASES: Normal. LIVER: Normal. GALLBLADDER AND BILIARY TREE: Normal. PANCREAS: Normal. SPLEEN: Normal. ADRENAL GLANDS: Normal. URINARY TRACT (KIDNEYS, URETERS, BLADDER): There is a 6 mm proximal right ureteral calculus located 8 cm distal to the right renal pelvis. The calculus measures 6 mm period. Hounsfield units 949. There is mild dilatation of the urinary tract proximal to this calculus. No additional calculi in the urinary tract or right kidney Left kidney normal without calculus left ureter normal. No hydronephrosis. Bladder normal. PELVIC ORGANS: Metallic foci within the prostate. PERITONEAL CAVITY: Normal. MESENTERY/OMENTUM: Normal. GI TRACT (STOMACH, SMALL BOWEL, LARGE BOWEL): Normal. APPENDIX: Normal. LYMPH NODES: Normal. VASCULAR: Overall mild to moderate arterial calcification most prominent in the distal aorta ABDOMINAL WALL/SOFT TISSUES: Normal. SKELETAL: Severe degenerative disc changes at L5-S1 with vacuum disc phenomenon noted. Additional scattered nodules spondylosis throughout the partially visualized thoracolumbar spine. IMPRESSION: 1. 6 mm proximal right ureteral calculus. Mild dilatation of the right collecting system proximal to the calculus 2. Mild to moderate arterial calcification. 3. Degenerative disc disease L5-S1. Assessment & Plan Assessment & Plan (1) Nephrolithiasis: Code(s): N20.0 - Calculus of kidney Category: Medical (2) Hydronephrosis concurrent with and due to calculi of kidney and ureter: Code(s): N13.2 - Hydronephrosis with renal and ureteral calculous obstruction Category: Medical (3) Prostate cancer: Comment: June 2021 high-grade prostate cancer [place] 8 - EXBRT and hormone therapy Code(s): C61 - Malignant neoplasm of prostate Category: Medical Plan: Ureteroscopy We discussed the nature of the decision and reasonable alternatives for performing ureteroscopy. Options such as medical therapy were discussed. Interventions include chemical dissolution, ESWL, ureteroscopy with laser lithotripsy and stent placement, PCNL. The relative uncertainties and benefits related to each alternate procedure were adequately discussed. General surgical risks including, but not limited to - pain, bleeding, infection, myocardial infarction, pulmonary embolus, deep vein thrombosis and cerebrovascular accident which may result in further hospitalization were discussed.? Full disclosure of the procedure as well as all major risks, benefits and complications were discussed including but not limited to damage to the urethra, bladder and kidney infection, damage to the ureter, stent migration or malposition, scarring to the renal pelvis, remnant stone fragments, subsequent stone passage with need for secondary procedures. The overall secondary procedure rate is approximately 10-15%.? The overall clearance rate is approximately 90-95%. Success of the procedure in the short-term does not necessarily guarantee that long-term success will be maintained. Suitable follow up will need to be maintained. The patient showed understanding of discussion and wishes to proceed with - cystoscopy, retrograde, ureteroscopy, possible lithotripsy/stone basketing and stent on the right side Plan In office urinalysis results reviewed with the patient today; as noted above. Recent CT results reviewed with the patient today; as noted above. Discussed at length further treatment options for obstructing stone. All questions were answered. He currently denies any bothersome urinary issues or concerns. He reports to be happy with his current voiding parameters. Discussed, educated, and stressed the importance of adequate hydration. Discussed possible near future metabolic workup with 24 hour urine collection and labs. Patient with a history of prostate cancer will continue with surveillance monitoring. Will obtain bone scan for further assessment evaluation. Will schedule for cystoscopy, retrograde, ureteroscopy, possible lithotripsy/stone basketing and stent on the right side. Follow-up per doctor's orders; or sooner with any issues, concerns, and or questions. Orders: Orders NM bone scan whole body Today C61 - Malignant neoplasm of prostate, C79.51 - Secondary malignant neoplasm of bone AMB Urinalysis Automated Today Z13.9 - Encounter for screening, unspecified Patient Instructions: The patient had an opportunity to ask questions regarding the treatment plan. All questions were answered. Physical exam, labs, and imaging were discussed and reviewed in detail. As well as risks, benefits, and discussion of treatment choices. No major barriers to understanding were identified. The patient e xpressed understanding and agreement with the above treatment plan. The patient was made aware they should contact our office by phone for worsening of their current condition, the appearance of new symptoms, or with any questions or concerns. Compliance is encouraged with any medications and follow up testing that is ordered. It is a privilege to be allowed the opportunity to participate in? your urological care.? Again, if you have any questions or concerns If you have any questions or concerns please do not hesitate to contact me. The office is [phone]. This note is constructed using voice recognition software. While every effort has been made to ensure accuracy floral manager errors may have been included. Yours sincerely, KAYLENE Gonzalez Coding Level of Care Code Est Pt Level 4 (78388) Diagnoses Nephrolithiasis N20.0 Hydronephrosis concurrent with and due to calculi of kidney and ureter N13.2 Prostate cancer C61
== END 2024-05-05 11:05 | disposition home or self-care (01) ==
PROVIDERS: PCP Internal Medicine; Visit Provider Nurse Practitioner Family
DX: N20.0 Calculus of kidney (principal); N13.2 Hydronephrosis with renal and ureteral calculous obstruction; C61 Malignant neoplasm of prostate; Z13.9 Encounter for screening, unspecified
CPT/HCPCS: 99214

== ENCOUNTER → 2024-05-05 09:54 | Outpatient (BNVA) | payer MEDICARE, OTHER, SELFPAY | PROVIDERS: PCP Internal Medicine; Visit Provider Nurse Practitioner Family | DX: N20.1 Calculus of ureter (principal); C61 Malignant neoplasm of prostate | CPT/HCPCS: 81003; 99212 ==

== ENCOUNTER 2024-05-26 06:47 | Day surgery (SDC) | payer MEDICARE, OTHER, SELFPAY ==
[2024-05-22 16:02] VITALS: BMI 30.3
--- NOTE | 2024-05-25 10:23 | HO.ANESPROP2 ---
Documented by User: Kristie Del Rosario NP 05/25/24 10:24 HPI - Anesthesia Eval Consult details Narrative: 68yo M for Right Cystoscopy, Ureteroroscopy, Retro, Laser with possible stent placement Anesthesia Pre-Procedure Meds Is the patient on any of the following meds?: GLP1/DPP4 and SGLT2 Inhib PMFSH Active Problems Active Problems: All Active Problems Nephrolithiasis (Acute) Hydronephrosis concurrent with and due to calculi of kidney and ureter (Acute) Urinary urgency (Acute) Prostate cancer (Acute) Elevated PSA (Acute) Erectile dysfunction (Acute) Weak urinary stream (Acute) BPH w urinary obs/LUTS (Acute) Past Medical History Medical History Gout Arthritis Back pain Sleep apnea Asthma COVID-19 vaccine series completed COVID-19 Failure of attempted procedure BPH (benign prostatic hyperplasia) GERD (gastroesophageal reflux disease) Diabetes Elevated cholesterol Family History Family history of problems with anesthesia: No Surgical History Surgical History History of esophagogastroduodenoscopy (EGD) H/O colonoscopy History of total left knee replacement History of Problems with Anesthesia: No Social History Social History Household Members: Spouse Housing: House Are you a primary career development manager to a significant other at home: No Do you presently have visiting nurse or other home services: No Patient Tobacco Use Status: Former Tobacco user Tobacco use type: Cigarette Smoked in Last 30 Days: No Second Hand Smoke Exposure: No Use of substances other than those prescribed or required for medical reasons: No Have you been hit, kicked, punched, or otherwise hurt by someone within the past year? If so, by whom?: No Are you DNR?: No Advance Directives: No (will bring dos, if able to find) Advance Directives Information Provided: Yes Advance Directives on File: No Recently lost weight without trying: No Nutrition Risks: No Nutritional Risk Poor oral hygiene: No Meds Allergies Allergy/AdvReac Type Severity Reaction Status Date / Time No Known Allergies Allergy Verified 05/22/24 16:01 Home Medications ?Medication ?Instructions ?Recorded ?Confirmed ?Last Taken ?Type allopurinol 300 mg tablet 300 mg PO DAILY 11/15/20 05/22/24 Unknown History blood sugar diagnostic #10 ea 11/15/20 01/02/23 Unknown History insulin glargine 100 unit/mL (3 18 unit subcut QPM 11/15/20 05/22/24 Unknown History mL) subcutaneous pen lisinopril 10 mg tablet 10 mg PO DAILY 11/15/20 05/22/24 Unknown History montelukast 10 mg tablet 10 mg PO QPM 11/15/20 05/22/24 Unknown History omeprazole 20 mg capsule,delayed 20 mg PO BID 11/15/20 05/22/24 05/26/24 History release pen needle, diabetic 32 gauge x #50 ea 11/15/20 01/02/23 Unknown History albuterol sulfate 90 mcg/actuation 2 puff inhalation QID PRN Wheezing 07/19/21 05/22/24 Unknown History aerosol inhaler metformin 500 mg tablet,extended 1 tab PO BID 07/19/21 05/22/24 Unknown History release 24 hr empagliflozin 10 mg tablet 10 mg PO DAILY 01/18/22 05/22/24 05/22/24 History (Jardiance) fluticasone propionate 110 1 puff PO BID 03/15/22 05/22/24 Unknown History mcg/actuation HFA aerosol inhaler (Flovent HFA) metoprolol succinate 25 mg 25 mg PO DAILY 01/02/23 05/22/24 05/26/24 History tablet,extended release 24 hr rosuvastatin 20 mg tablet 20 mg PO DAILY 01/02/23 05/22/24 Unknown History semaglutide 0.25 mg or 0.5 mg (2 mg subcut 04/24/24 05/16/24 History mg/3 mL) subcutaneous pen injector (Ozempic) Exam Height,Weight and Vital Signs: Height 6 ft 1 in Weight 104.326 kg Assessment and Plan Assessment Anesthesia Assessment: Chart Reviewed Final Anesthetic Review Family History of Problems with Anesthesia: No History of Problems with Anesthesia: No Documented by User: Malia Carson MD 05/26/24 07:57 [facility] Past Medical History Medical History Gout Arthritis Back pain Sleep apnea Asthma COVID-19 vaccine series completed COVID-19 Failure of attempted procedure BPH (benign prostatic hyperplasia) GERD (gastroesophageal reflux disease) Diabetes Elevated cholesterol Surgical History Surgical History History of esophagogastroduodenoscopy (EGD) H/O colonoscopy History of total left knee replacement Social History Social History Household Members: Spouse Housing: House Are you a primary career development manager to a significant other at home: No Do you presently have visiting nurse or other home services: No Patient Tobacco Use Status: Former Tobacco user Tobacco use type: Cigarette Smoked in Last 30 Days: No Second Hand Smoke Exposure: No Use of substances other than those prescribed or required for medical reasons: No Have you been hit, kicked, punched, or otherwise hurt by someone within the past year? If so, by whom?: No Are you DNR?: No Advance Directives: No (will bring dos, if able to find) Advance Directives Information Provided: Yes Advance Directives on File: No Recently lost weight without trying: No Nutrition Risks: No Nutritional Risk Poor oral hygiene: No Meds Allergies Allergy/AdvReac Type Severity Reaction Status Date / Time No Known Allergies Allergy Verified 05/22/24 16:01 Home Medications ?Medication ?Instructions ?Recorded ?Confirmed ?Last Taken ?Type allopurinol 300 mg tablet 300 mg PO DAILY 11/15/20 05/22/24 Unknown History blood sugar diagnostic #10 ea 11/15/20 01/02/23 Unknown History insulin glargine 100 unit/mL (3 18 unit subcut QPM 11/15/20 05/22/24 Unknown History mL) subcutaneous pen lisinopril 10 mg tablet 10 mg PO DAILY 11/15/20 05/22/24 Unknown History montelukast 10 mg tablet 10 mg PO QPM 11/15/20 05/22/24 Unknown History omeprazole 20 mg capsule,delayed 20 mg PO BID 11/15/20 05/22/24 05/26/24 History release pen needle, diabetic 32 gauge x #50 ea 11/15/20 01/02/23 Unknown History albuterol sulfate 90 mcg/actuation 2 puff inhalation QID PRN Wheezing 07/19/21 05/22/24 Unknown History aerosol inhaler metformin 500 mg tablet,extended 1 tab PO BID 07/19/21 05/22/24 Unknown History release 24 hr empagliflozin 10 mg tablet 10 mg PO DAILY 01/18/22 05/22/24 05/22/24 History (Jardiance) fluticasone propionate 110 1 puff PO BID 03/15/22 05/22/24 Unknown History mcg/actuation HFA aerosol inhaler (Flovent HFA) metoprolol succinate 25 mg 25 mg PO DAILY 01/02/23 05/22/24 05/26/24 History tablet,extended release 24 hr rosuvastatin 20 mg tablet 20 mg PO DAILY 01/02/23 05/22/24 Unknown History semaglutide 0.25 mg or 0.5 mg (2 mg subcut 04/24/24 05/16/24 History mg/3 mL) subcutaneous pen injector (Ozempic) Exam Airway Mallampati Class: III TM Dist: >3cm Neck ROM: Full Loose/Missing/Broken Teeth: No Heart: RRR Lungs: CTA Assessment and Plan Final Anesthetic Review NPO: Yes ASA Class: III Final Preanesthetic Review: Meds/Allgs Chart Reviewed, Consent Obtained/Reviewed and Anes Risks/Benef Reviewed Patient Risk: Intermediate Procedure Risk: Low Anesthetic Plan Anesthetic Plan: GA Disposition: Standard PACU
--- NOTE | ~2024-05-26 | FL_ITS ---
EXAMINATION: XR FLUOROSCOPY WITH IMAGES CLINICAL INFORMATION: Cystoscopy and right retrograde ureteroscopy/stent placement. COMPARISON: CT abdomen and pelvis 03/30/2024. TECHNIQUE: Fluoroscopy provided to: Dr. Martins Fluoroscopy time: 36.2 seconds DAP: N/A Total dose: 18.54 mGy Images: 6 FINDINGS: Sequential images during cystoscopy and retrograde stent placement right ureter after contrast injection. FL/FL guidance in OR IMPRESSION: Fluoroscopic guidance. Please refer to the full operative report for details. Electronically signed by: Luis Gibson MD 07/22/2024 05:16 PM EDT
[2024-05-26 07:02] VITALS: BP 145/81; PULSE 78; RESP 20; TEMP 36.6; O2SAT 97
[2024-05-26 07:10] LABS: Glucose, Whole Blood 200 mg/dL (60-115)
[2024-05-26] MEDS: Lactated Ringers 1,000 ML 100 ML IVCONT (07:21)
--- NOTE | 2024-05-26 08:46 | MHC.SHP ---
Pre-Procedural Eval Section A - 24 Hr Update-Section A only Date of Service: 05/26/24 The patient is an INPATIENT: No The patient has been examined within 24 hours of the surgical procedure. The History & Physical has been completed within 30 days and I have reviewed it.: Yes Section B - Complete if H&P > 30 days Chief Complaint: Calculus of kidney Allergies: Allergies Allergy/AdvReac Type Severity Reaction Status Date / Time No Known Allergies Allergy Verified 05/22/24 16:01 Plan Diagnosis/Plan: Unchanged I have reviewed the history and physical and performed a pertinent physical examination on my patient. No changes have occurred unless specified. Plan for Cystoscopy, Right ureteroscopy, laser lithotripsy, ureteral stent. Risks discussed included but not limited to, possible need to repeat procedure if stone is not completely fragmented, Irritative voiding symptoms, bladder spasms, urgency, blood in urine. Time Spent With Patient Time: Total time managing care of this patient today ____ minutes.
[2024-05-26 10:00] VITALS: BP 162/84; PULSE 69; RESP 18; TEMP 36.1; O2SAT 100
[2024-05-26 10:05] VITALS: BP 150/84; PULSE 62; RESP 16; O2SAT 97
[2024-05-26 10:10] VITALS: BP 158/65; PULSE 67; RESP 16; O2SAT 96
[2024-05-26 10:15] VITALS: BP 153/81; PULSE 64; RESP 16; O2SAT 96
--- NOTE | 2024-05-26 10:20 | P.OP_ITS ---
Operative Note Operative Note Date of Service: 05/26/24 Narrative: PreOperative Diagnosis:?? Right ureteral stone Post Operative Diagnosis:?? Right ureteral stone Procedure: - cystoscopy, right retrograde, right ureteroscopy stent insertion, 7 Estonian by 28 cm Surgeon:?Dr Gerry Martins Anesthesia:? General Indications for procedure: Rex is a 68 y/o male with right flank pain. CTAP: right mid-proximal ureteral stone right hydronephrosis Procedure: After informed consent was verified the patient was brought to the operating placed on the OR table in supine position.? General Anesthesia was administered per protocol.? The patient was placed in lithotomy position, prepped and draped in the usual sterile fashion.? Safety pause time-out and side of surgery confirmed.? Antibiotics confirmed. 2% lidocaine jelly 10 mL was passed transurethrally. A 22 Estonian cystoscope was inserted transurethrally, the bulbous urethra was within normal limits. The prostatic urethra was nonobstructive. The bladder was visualized.? Both ureteric orifices were in normal position. An open-ended ureteral catheter was passed into the right ureteral orifice and a retrograde examination was performed. There was a filling defect in the mid ureter and dilatation of the proximal ureter. A guidewire was passed through the ureteral catheter into the kidney. The balloon dilator size 12fr was passed over the guide -wire the balloon was inflated to 10 mmHg and the intramural ureter was dilated for 40 seconds. The balloon was deflated and removed. After removing the balloon dilator a 2nd guidewire was then passed into the kidney to use as a safety. The cystoscope was removed, leaving both guidewires in place. One guidewire was used as the safety and was attached to the draping. The semi rigid ureteroscope was passed over one of the guidewires to the mid ureter where there was narrowing and inflammation, the stone was not visualized. The ureteroscope was removed. The cystoscope was passed over the safety guidewire. A? 7 Estonian by 28 cm stent was placed into the ureter and renal pelvis under a combination of fluoroscopy and direct visualization. The bladder was emptied.? The rigid cystoscope was removed. ? The patient tolerated the procedure well and was brought to the recovery room in stable condition. Complications: None Drains: Ureteral stent as dictated above
[2024-05-26 10:30] VITALS: BP 153/76; PULSE 62; RESP 16; TEMP 36.1; O2SAT 96
== END 2024-05-26 11:12 | disposition home or self-care (01) ==
PROVIDERS: PCP Internal Medicine; Visit Provider Urology
PROC: (CPT 52351; principal; 2024-05-26 08:50)
DX: N13.2 Hydronephrosis with renal and ureteral calculous obstruction (principal); N40.0 Benign prostatic hyperplasia without lower urinary tract symptoms; C61 Malignant neoplasm of prostate; C79.51 Secondary malignant neoplasm of bone; E78.00 Pure hypercholesterolemia, unspecified; M10.9 Gout, unspecified; K21.9 Gastro-esophageal reflux disease without esophagitis; J45.909 Unspecified asthma, uncomplicated; M19.90 Unspecified osteoarthritis, unspecified site; E11.9 Type 2 diabetes mellitus without complications; G47.30 Sleep apnea, unspecified; Z79.899 Other long term (current) drug therapy; Z79.84 Long term (current) use of oral hypoglycemic drugs; Z79.85 Long-term (current) use of injectable non-insulin antidiabetic drugs; Z79.51 Long term (current) use of inhaled steroids; Z88.6 Allergy status to analgesic agent; Z98.890 Other specified postprocedural states; Z87.891 Personal history of nicotine dependence
CPT/HCPCS: 52351; 52332; 82947; C1726; C1758; C1769; C2617; J0131; J0690; J2250; J2405; J2704; J3010; Q9967

== ENCOUNTER → 2024-05-26 06:47 | Outpatient (BNV) | payer MEDICARE, OTHER, SELFPAY | PROVIDERS: PCP Internal Medicine; Visit Provider Urology | DX: N20.1 Calculus of ureter (principal) | CPT/HCPCS: 52332; 74420 ==

== ENCOUNTER 2024-06-02 12:46 | Outpatient (REF) | payer MEDICARE, OTHER, SELFPAY ==
--- NOTE | ~2024-06-02 | XR_ITS ---
EXAMINATION: XR ABDOMEN KUB CLINICAL INDICATION: Renal calculus. COMPARISON: CT abdomen and pelvis dated 04/29/2024. TECHNIQUE: 2 AP views of the abdomen and pelvis are submitted. FINDINGS: The bowel gas pattern is normal with no evidence of ileus or obstruction. No unusual soft tissue calcifications are noted. A right renal atherosclerotic calcification is again seen. There is a well-positioned double pigtail right ureteric stent. Prostate implant seeds are noted. There is no acute osseous abnormality. There is bony demineralization. XR/XR KUB IMPRESSION: No urinary calculus is presently seen. There is a well-positioned double pigtail right ureteric stent.
== END 2024-06-02 12:47 | disposition home or self-care (01) ==
LOC: HO.XRAY 12:46
PROVIDERS: PCP Internal Medicine; Visit Provider Urology
DX: N20.0 Calculus of kidney (principal); Z96.0 Presence of urogenital implants
CPT/HCPCS: 74018

== ENCOUNTER 2024-06-05 13:15 | Outpatient (AMB) | payer MEDICARE, OTHER, SELFPAY ==
--- NOTE | 2024-06-05 13:34 | MHC.OFFVIS ---
Intake Visit Reasons: Stent placement- follow up Intake Note: Patient presents today for stent placement follow up Urology Medications: Tadalafil,oxybutynin,phenazopyridine Blood Thinner: none Group Burner Machine Required: No Accompanied by: Allergies No Known Allergies Allergy (Verified 06/05/24 13:35) HPI Comments Details: 06/05/24--s/p right ureteroscopy, edema/mid ureter stone not visualized, ureteral stent placed. Pt thinks he passed stone. KUB 06/04/24, no renal/ureteral calcifications seen. Plan remove stent next week. Pt also has h/o prostate cancer and states has had PSA checked with Dr Holland. Review of chart. 05/05/24--Rex is a very pleasant 68-year-old male patient of Dr. Villafuerte who was accompanied by his at today's office visit. He has a past medical history of gout, arthritis, back pain, sleep apnea unable to tolerate CPAP, asthma, BPH, GERD, diabetes, hypercholesteremia, and prostate cancer. He presents to the office today for follow-up of his nephrolithiasis. Of note, patient was seen approximately 2 weeks ago at which time a CT KUB was ordered for further assessment evaluation. These results were reviewed with the patient today. 6 mm proximal right ureteral calculusagain noted. Mild dilatation of the right collecting system proximal to the calculus. Previous CT from [facility] noted 9 mm sclerotic focus involving the L5 vertebral body. In setting of known personal history of prostate cancer, this lesion is indeterminate. Correlation with any prior outside studies is suggested. Consider assessment with bone scan per radiology report. However, not noted on most recent CT KUB. Will obtain bone scan for further assessment evaluation. In discussion with the patient today reports to be doing and feeling well. Patient reports infrequent right-sided flank pain he otherwise denies any bothersome urinary issues or concerns. He denies denies urinary urgency, urinary frequency, incontinence, nocturia, hematuria, dysuria, foul smelling urine, changes to urinary stream, fever, and or chills. He is happy with his current voiding parameters. He otherwise offers no other issues or concerns at this time. PREVIOUS OFFICE NOTE------ Urination stable with control Hot flashes fully resolved Current other side effects include mild fatigue, some modification of strength Continue three-month follow-up till 2 years from completion of therapy After 2 years of completion of therapy will continue monitoring PSA every 6 months. Prostate cancer June 2021 PSA 4.5 [place] 4+4 - initial therapy 18 month GnRH with external beam radiation at [facility] completed December 2021 - Last GnRH 10/18 PSA 03/18 0.1 T 11, 06/18 0.1 T 3, 10/18 0.1 T3, 01/17 0.1 T3, 08/19 PSA <0.1, T<3, 12/21 PSA <0.1, T 36, 04/20 PSA <0.1, T 167. Initial therapy external beam radiation with 18 months hormone therapy via [facility] 01/[address] Holland June 2021 Initial PSA at diagnosis 4.5 Histologic type: Adenocarcinoma; acinar type Histologic grade:? Kyle score: 4+4=8? % of pattern 4: 100%? % of pattern 5: 0% Grade group: 4 Tumor quantitation:? Number cores positive: 3? Total number of cores: 12? % of tissue involved: 5-10% of all tissue examined - left mid lateral 30%, left apex lateral 30%, left apex medial 20% - Total - 7% Periprostatic fat inv.: Not identified, Seminal vesicle inv.: Not identified, Perineural inv.: Present, LVI: Not identified Staging - 08/17 prostate MRI with 1.7 cm left apical posterior lesion, irregularity of prostate bowel injury suggestive of ISAURA, 1.4 cm pelvic sidewall node noted - 08/17 bone scan no evidence of disease PFSH Medical History Gout Arthritis Back pain Sleep apnea Asthma COVID-19 vaccine series completed COVID-19 Failure of attempted procedure BPH (benign prostatic hyperplasia) GERD (gastroesophageal reflux disease) Diabetes Elevated cholesterol Surgical History History of esophagogastroduodenoscopy (EGD) H/O colonoscopy History of total left knee replacement Social History Household Members: Spouse Housing: House Are you a primary adult day care worker to a significant other at home: No Do you presently have visiting nurse or other home services: No Patient Tobacco Use Status: Former Tobacco user Tobacco use type: Cigarette Second Hand Smoke Exposure: No Review of Systems Const All systems reviewed & are unremarkable except as noted in HPI and below Reports no additional complaints Eyes Reports no additional complaints ENT Reports no additional complaints Card Reports no additional complaints Resp Reports no additional complaints GI Reports no additional complaints Reports as per HPI Musc Reports no additional complaints Skin/Breast Reports system reviewed and no additional complaints, except as documented Neuro Reports no additional complaints Psych Reports no additional complaints Endo Reports no additional complaints Blair/Lymph Reports no additional complaints Aller/Immun Reports no additional complaints Assessment & Plan Assessment & Plan (1) Nephrolithiasis: Code(s): N20.0 - Calculus of kidney Category: Medical (2) Hydronephrosis concurrent with and due to calculi of kidney and ureter: Code(s): N13.2 - Hydronephrosis with renal and ureteral calculous obstruction Category: Medical (3) Prostate cancer: Comment: June 2021 high-grade prostate cancer Kyle 8 - EXBRT and hormone therapy Code(s): C61 - Malignant neoplasm of prostate Category: Medical Plan fu for cysto stent removal in the office. Medications: New diazepam (Valium) take prior to procedure 5 mg PO ONCE 1 tab 0RF Patient Instructions: The patient had an opportunity to ask questions regarding treatment plan. The patient expressed understanding and agreement with the above treatment plan. The patient is aware they should contact our office by phone for worsening of their current condition or the appearance of new symptoms. Compliance is encouraged with any medications and followup testing that is ordered. It is a privilege to be allowed the opportunity to participate in the urologic care of your patient. If you have any questions or concerns regarding treatment for the above conditions please do not hesitate to contact me. The office telephone contact is [phone]. This note is constructed in part using voice recognition software. While every effort has been made to ensure accuracy nutrition services worker errors may have been included. Yours sincerely, Gerry Martins MD Coding Level of Care Code Est Pt Level 3 (87391) Diagnoses Nephrolithiasis N20.0 Hydronephrosis concurrent with and due to calculi of kidney and ureter N13.2 Prostate cancer C61
== END 2024-06-05 14:05 | disposition home or self-care (01) ==
PROVIDERS: PCP Internal Medicine; Visit Provider Urology
DX: N20.0 Calculus of kidney (principal); N13.2 Hydronephrosis with renal and ureteral calculous obstruction; C61 Malignant neoplasm of prostate
CPT/HCPCS: 99213

== ENCOUNTER → 2024-06-05 13:15 | Outpatient (BNVA) | payer MEDICARE, OTHER, SELFPAY | PROVIDERS: PCP Internal Medicine; Visit Provider Urology | DX: N13.2 Hydronephrosis with renal and ureteral calculous obstruction (principal); C61 Malignant neoplasm of prostate; Z96.0 Presence of urogenital implants | CPT/HCPCS: 99212 ==

== ENCOUNTER → 2024-06-10 09:38 | Outpatient (REF) | payer MEDICARE, OTHER, SELFPAY ==
--- NOTE | ~2024-06-10 | NM_ITS ---
EXAMINATION: NM BONE SCAN OF THE WHOLE BODY CLINICAL INFORMATION: Secondary malignant neoplasm of bone. COMPARISON: No previous bone scan is available for comparison. KUB dated 06/02/2024 is the only radiograph available for comparison. CT kidney stone study dated 04/29/2024 is also available for comparison. TECHNIQUE: Multiple gamma scintillation camera images of the whole body were performed 3 hours following the intravenous administration of 36 mCi Tc-99m MDP. FINDINGS: In the head, there is a small equivocal focus of increased activity suggested just anterior to the skull vertex in the lateral spot views of the head which may be due to some prominence of the coronal suture, but is not seen on the anterior views and is considered equivocal. In the thoracic cage and upper extremities, there is mildly increased activity in the sternoclavicular joints bilaterally and minimally increased activity is present in the right acromioclavicular joint and at the costochondral junctions of both first ribs. There is minimally increased activity in the glenohumeral articulation of both shoulders, more prominently on the right and there is mildly increased activity in the radial side of both hands, probably in the first carpal metacarpal joints and in additional faint periarticular foci of increased activity are present in both hands. All of these findings are likely arthritic in etiology. In the spine, there is minimally increased activity in small foci bilaterally at the T8/T9 level. These are probably in the posterior elements and due to facet arthropathy. A very minimal thoracolumbar scoliosis is present with lumbar convexity to the left. In the pelvis, no significant abnormalities are present. In the lower extremities, a photopenic defect from a well-healed left total knee prosthesis is noted. The whole-body anterior and posterior images of this are degraded by motion of this leg during the image acquisition, but additional lateral views obtained show that there are no significant abnormalities are present adjacent to the prosthesis. Minimally increased activity in the patellar and medial compartments of the right knee likely arthritic or also noted. There are foci of mildly increased activity in the mid feet bilaterally and in both ankles, slightly more prominently on the right. The 04/29/2024 CT scan shows degenerative changes in the spine including some facet arthropathy in the mid thoracic spine and corresponds to the mild bone scan abnormalities in this region described above. No other definite bony abnormalities are noted. The urinary bladder and faint visualization of both kidneys are noted. NM/NM bone scan whole body IMPRESSION: Mild nonspecific abnormalities are noted as described above and these are all likely arthritic or traumatic in etiology. None of these abnormalities is strongly suspicious for metastatic disease.
== END ==
LOC: HO.NUCMED 09:38
PROVIDERS: Absent Provider Urology; PCP Internal Medicine; Visit Provider Nurse Practitioner Family
DX: C61 Malignant neoplasm of prostate (principal); C79.51 Secondary malignant neoplasm of bone
CPT/HCPCS: 78306; A9503

== ENCOUNTER 2024-06-12 14:33 | Outpatient (AMB) | payer MEDICARE, OTHER, SELFPAY ==
--- NOTE | 2024-06-12 13:32 | A.OFFVIS_ITS ---
Intake Visit Reasons: cysto/stent removal Intake Note: Patient is Present for Cystoscopy/Stent Removal Stent Placed: 05/26/24 Urology Med: Tadalafil, Oxybutynin Antibiotic Allergy:None Blood Thinner: None Patient is currently on Jardiance and Ozempic URO- G Disposable Cystoscope lot: [id number] exp:12/12/2026 Director Of Science Required: No Allergies No Known Allergies Allergy (Verified 06/12/24 13:34) HPI Comments Details: 1624--cystoscopy stent removal. Rex has a follow-up with Shirley post nuclear imaging follow-up of prostate cancer. I Discussed for the metabolic kidney stones with 24 hour urine. He can review these results with the nurse practitioner Shirley also. Review of chart. 06/05/24--s/p right ureteroscopy, edema/mid ureter stone not visualized, ureteral stent placed. Pt thinks he passed stone. KUB 06/04/24, no renal/ureteral calcifications seen. Plan remove stent next week. Pt also has h/o prostate cancer and states has had PSA checked with Dr Holland. 05/05/24--Rex is a very pleasant 68-year-old male patient of Dr. Villafuerte who was accompanied by his at today's office visit. He has a past medical history of gout, arthritis, back pain, sleep apnea unable to tolerate CPAP, asthma, BPH, GERD, diabetes, hypercholesteremia, and prostate cancer. He presents to the office today for follow-up of his nephrolithiasis. Of note, patient was seen approximately 2 weeks ago at which time a CT KUB was ordered for further assessment evaluation. These results were reviewed with the patient today. 6 mm proximal right ureteral calculusagain noted. Mild dilatation of the right collecting system proximal to the calculus. Previous CT from [facility] noted 9 mm sclerotic focus involving the L5 vertebral body. In setting of known personal history of prostate cancer, this lesion is indeterminate. Correlation with any prior outside studies is suggested. Consider assessment with bone scan per radiology report. However, not noted on most r ecent CT KUB. Will obtain bone scan for further assessment evaluation. In discussion with the patient today reports to be doing and feeling well. Patient reports infrequent right-sided flank pain he otherwise denies any bothersome urinary issues or concerns. He denies denies urinary urgency, urinary frequency, incontinence, nocturia, hematuria, dysuria, foul smelling urine, changes to urinary stream, fever, and or chills. He is happy with his current voiding parameters. He otherwise offers no other issues or concerns at this time. PREVIOUS OFFICE NOTE------ Urination stable with control Hot flashes fully resolved Current other side effects include mild fatigue, some modification of strength Continue three-month follow-up till 2 years from completion of therapy After 2 years of completion of therapy will continue monitoring PSA every 6 months. Prostate cancer June 2021 PSA 4.5 Kyle 4+4 - initial therapy 18 month GnRH with external beam radiation at [facility] co mpleted December 2021 - Last GnRH 10/18 PSA 03/18 0.1 T 11, 06/18 0.1 T 3, 10/18 0.1 T3, 01/17 0.1 T3, 08/19 PSA <0.1, T<3, 12/21 PSA <0.1, T 36, 04/20 PSA <0.1, T 167. Initial therapy external beam radiation with 18 months hormone therapy via [facility] 01/[address] Holland June 2021 Initial PSA at diagnosis 4.5 Histologic type: Adenocarcinoma; acinar type Histologic grade:? Dobson score: 4+4=8? % of pattern 4: 100%? % of pattern 5: 0% Grade group: 4 Tumor quantitation:? Number cores positive: 3? Total number of cores: 12? % of tissue involved: 5-10% of all tissue examined - left mid lateral 30%, left apex lateral 30%, left apex medial 20% - Total - 7% Periprostatic fat inv.: Not identified, Seminal vesicle inv.: Not identified, Perineural inv.: Present, LVI: Not identified Staging - 08/17 prostate MRI with 1.7 cm left apical posterior lesion, irregularity of prostate bowel injury suggestive of ISAURA, 1.4 cm pelvic sidewall node noted--- 08/17 bone scan no evidence of disease [facility] Medical History Gout Arthritis Back pain Sleep apnea Asthma COVID-19 vaccine series completed COVID-19 Failure of attempted procedure BPH (benign prostatic hyperplasia) GERD (gastroesophageal reflux disease) Diabetes Elevated cholesterol Surgical History History of esophagogastroduodenoscopy (EGD) H/O colonoscopy History of total left knee replacement Social History Household Members: Spouse Housing: House Are you a primary patient care provider to a significant other at home: No Do you presently have visiting nurse or other home services: No Patient Tobacco Use Status: Former Tobacco user Tobacco use type: Cigarette Second Hand Smoke Exposure: No Review of Systems Const All systems reviewed & are unremarkable except as noted in HPI and below Reports no additional complaints Eyes Reports no additional complaints ENT Reports no additional complaints Card Reports no additional complaints Resp Reports no additional complaints GI Reports no additional complaints Reports as per HPI Musc Reports no additional complaints Skin/Breast Reports system reviewed and no additional complaints, except as documented Neuro Reports no additional complaints Psych Reports no additional complaints Endo Reports no additional complaints Blair/Lymph Reports no additional complaints Aller/Immun Reports no additional complaints Office Procedures Cystoscopy Consent Discussed risk and benefit or proposed procedure with the patient. Information consent for procedure given to the patient. Discussed technical aspects, risks, benefits and alternatives in full. Addressed all of the patient's questions and concerns regarding the procedure. The patient demonstrated knowledge and understanding. They wish to proceed with this procedure. Preparation The patient was prepped in the usual manner. A food taster was present and in the room. Genitalia was prepped with betadine solution in a sterile manner. Lidocaine Jelly 2% was placed into the urethra and 16Fr flexible Olympus cystoscope was inserted into the meatus after adequate lubrication. Procedure Time out per protocol performed. Bladder Inspection Cystoscopy findings: mild edema ureteral orifice which is expected, distal end of ureteral stent visualized. The grasping forceps were used and the stent was removed without difficulty. [id number] with stent removal DISPOSABLE SCOPE URO-G FLEXIBLE SCOPE Procedure code (CPT) selection complete Office Meds lidocaine HCl 2 % mucosal jelly in applicator Performing Provider: Gerry Martins MD [facility] Administered by: Thiago Albert LPN on 06/12/24 14:54 Dose Route Admin Location Dispensed Lot Number Expiration Date [facility] Nutrition Therapist 10 mL intra-urethral 10 mL naproxen 500 mg tablet Performing Provider: Gerry Martins MD Per[facility] Administered by: Thiago Albert LPN on 06/12/24 14:54 Dose Route Admin Location Dispensed Lot Number Expiration Date NDC Nutrition Therapist 500 mg PO 1 tab ciprofloxacin HCl 500 mg tablet Performing Provider: Gerry Martins MD Performing [facility] Administered by: Thiago Albert LPN on 06/12/24 14:54 Dose Route Admin Location Dispensed Lot Number Expiration Date NDC Nutrition Therapist 500 mg PO 1 tab Results AMB Urinalysis, Automated UA Leukoctes 0 Franki/uL Last Edit by Thiago Albert LPN on 06/12/24 14:55 UA Nitrite Negative Last Edit by Thiago Albert LPN on 06/12/24 14:55 UA Urobilinogen 0 mg/dL Last Edit by Thiago Albert LPN on 06/12/24 14:55 UA Protein 15 mg/dL Last Edit by Thiago Albert LPN on 06/12/24 14:55 UA pH 5.0 Last Edit by Thiago Albert LPN on 06/12/24 14:55 UA Blood 200 Bryson/uL Last Edit by Thaigo Albert LPN on 06/12/24 14:55 UA Specific [place] 1.010 Last Edit by Thiago Albert LPN on 06/12/24 14:55 UA Ketone Negative Last Edit by Thiago Albert LPN on 06/12/24 14:55 UA Bilirubin 0 mg/dL Last Edit by Thiago Albert LPN on 06/12/24 14:55 UA Glucose 1000 mg/dL Last Edit by Thiago Albert LPN on 06/12/24 14:55 Results Reviewed Results Reviewed: Laboratory Last Values Urine pH (Auto) 5.0 06/12/24 14:47 Specific [place] (Auto) 1.010 06/12/24 14:47 Urine Protein (Auto) 15 mg/dL 06/12/24 14:47 Glucose (UA)(Auto) 1000 mg/dL 06/12/24 14:47 Urine Ketones (Auto) Negative 06/12/24 14:47 Urine Blood (Auto) 200 Bryson/uL 06/12/24 14:47 Urine Nitrite (Auto) Negative 06/12/24 14:47 Urine Bilirubin (Auto) 0 mg/dL 06/12/24 14:47 Urine Urobilinogen (Auto) 0 mg/dL 06/12/24 14:47 Leukocyte Esterase (Auto) 0 Franki/uL 06/12/24 14:47 Date of Service: 04/29/24 EXAMINATION: CT SCAN OF THE ABDOMEN AND PELVIS WITHOUT CONTRAST FINDINGS: LUNG BASES: Normal. LIVER: Normal. GALLBLADDER AND BILIARY TREE: Normal. PANCREAS: Normal. SPLEEN: Normal. ADRENAL GLANDS: Normal. URINARY TRACT (KIDNEYS, URETERS, BLADDER): There is a 6 mm proximal right ureteral calculus located 8 cm distal to the right renal pelvis. The calculus measures 6 mm period. Hounsfield units 949. There is mild dilatation of the urinary tract proximal to this calculus. No additional calculi in the urinary tract or right kidney Left kidney normal without calculus left ureter normal. No hydronephrosis. Bladder normal. PELVIC ORGANS: Metallic foci within the prostate. PERITONEAL CAVITY: Normal. MESENTERY/OMENTUM: Normal. GI TRACT (STOMACH, SMALL BOWEL, LARGE BOWEL): Normal. APPENDIX: Normal. LYMPH NODES: Normal. VASCULAR: Overall mild to moderate arterial calcification most prominent in the distal aorta ABDOMINAL WALL/SOFT TISSUES: Normal. SKELETAL: Severe degenerative disc changes at L5-S1 with vacuum disc phenomenon noted. Additional scattered nodules spondylosis throughout the partially visualized thoracolumbar spine. IMPRESSION: 1. 6 mm proximal right ureteral calculus. Mild dilatation of the right collecting system proximal to the calculus 2. Mild to moderate arterial calcification. 3. Degenerative disc disease L5-S1. Assessment & Plan Assessment & Plan (1) Nephrolithiasis: Code(s): N20.0 - Calculus of kidney Category: Medical (2) Hydronephrosis concurrent with and due to calculi of kidney and ureter: Code(s): N13.2 - Hydronephrosis with renal and ureteral calculous obstruction Category: Medical (3) Prostate cancer: Comment: June 2021 high-grade prostate cancer Kyle 8 - EXBRT and hormone therapy Code(s): C61 - Malignant neoplasm of prostate Category: Medical Plan FU with Shirley. Orders: Orders AMB Urinalysis Automated Today N13.2 - Hydronephrosis with renal and ureteral calculous obstruction, N13.8 - Other obstructive and reflux uropathy, N20.0 - Calculus of kidney, N40.1 - Benign prostatic hyperplasia with lower urinary tract symptoms, R39.15 - Urgency of urination, Z96.0 - Presence of urogenital implants AMB Cystoscopy Today N13.2 - Hydronephrosis with renal and ureteral calculous obstruction, N13.8 - Other obstructive and reflux uropathy, N20.0 - Calculus of kidney, N40.1 - Benign prostatic hyperplasia with lower urinary tract symptoms, R39.15 - Urgency of urination, Z96.0 - Presence of urogenital implants Coding Level of Care Code Procedure Only Diagnoses Nephrolithiasis N20.0 Hydronephrosis concurrent with and due to calculi of kidney and ureter N13.2 Prostate cancer C61 CPT Codes Cystoscopy - CPT: [id number] with stent removal ([id number])
== END 2024-06-12 15:25 | disposition home or self-care (01) ==
PROVIDERS: PCP Internal Medicine; Visit Provider Urology
DX: Z96.0 Presence of urogenital implants (principal); N13.2 Hydronephrosis with renal and ureteral calculous obstruction; R39.15 Urgency of urination; N40.1 Benign prostatic hyperplasia with lower urinary tract symptoms; N13.8 Other obstructive and reflux uropathy; C61 Malignant neoplasm of prostate
CPT/HCPCS: 52310

== ENCOUNTER → 2024-06-12 14:33 | Outpatient (BNVA) | payer MEDICARE, OTHER, SELFPAY | PROVIDERS: PCP Internal Medicine; Visit Provider Urology | DX: Z48.816 Encounter for surgical aftercare following surgery on the genitourinary system (principal) | CPT/HCPCS: 52310; 81003 ==

== ENCOUNTER 2024-07-07 14:13 | Outpatient (AMB) | payer MEDICARE, OTHER, SELFPAY ==
--- NOTE | 2024-07-07 14:50 | A.OFFVIS_ITS ---
Intake Visit Reasons: follow up/Bone scan/labs Intake Note: Patient presents today for follow up on: Bone Scan Results Imagin06/10/24 Urology Medications: Tadalafil, Oxybutynin Blood Thinner: none Inspector Screen Printing Required: No Accompanied by: Allergies No Known Allergies Allergy (Verified 07/07/24 19:31) Medication List - Last Reconciled 07/07/24 by MADISON Gonzalez-SHILOH albuterol sulfate 90 mcg/actuation 2 puffs inhalation QID PRN allopurinol 300 mg PO DAILY blood sugar diagnostic As directed empagliflozin (Jardiance) 10 mg PO DAILY fenofibrate 54 mg PO DAILY fluticasone propionate 110 mcg/actuation (Flovent HFA) 1 puff PO BID insulin glargine 18 units subcut QPM lisinopril 10 mg PO DAILY metformin ER 1 tab PO BID metoprolol succinate ER 25 mg PO DAILY montelukast 10 mg PO QPM omeprazole 20 mg PO BID oxybutynin chloride 5 mg PO BEDTIME pen needle, diabetic As directed phenazopyridine (Azo Urinary Pain Relief) 199 mg (2 x 99.5 mg) PO BID-TID PRN rosuvastatin 20 mg PO DAILY semaglutide (Ozempic) mg subcut tadalafil (Cialis) 15 mg (1.5 x 10 mg) PO .PRN 30 days tadalafil (Cialis) 5 mg PO DAILY 90 days HPI Comments Details: Rex is a very pleasant 68-year-old male patient of Dr. Villafuerte who was accompanied by his at today's office visit. He has a past medical history of gout, arthritis, back pain, sleep apnea unable to tolerate CPAP, asthma, BPH, GERD, diabetes, hypercholesteremia, and prostate cancer. He presents to the office today for follow-up of his nephrolithiasis. Of note, patient was seen approximately 3 weeks ago at which time he underwent in office cystoscopy for right ureteral stent removal as he was status post right ureteroscopy with Dr. Akhil Hernandez 06/05/24. He presents to the office today for follow-up of his recent bone scan results as previous CT noted possible lesion with a history of prostate cancer therefore bone scan was ordered and performed. These results were reviewed with the patient and his today. Mild nonspecific abnormalities are noted however none of these abnormalities are strongly suspicious for metastatic disease per radiology report. Recent PSA and testosterone results reviewed with the patient and his today as noted and t rended below. We discussed at length his metabolic workup with 24 hour urine collection and labs. He is aware and agreeable. He discusses his increase in water consumption. He denies any bothersome urinary issues or concerns at this time. He denies urinary urgency, urinary frequency, incontinence, nocturia, hematuria, dysuria, foul smelling urine, changes to urinary stream, fever, and or chills. He is happy with his current voiding parameters. He otherwise offers no other issues or concerns at this time. PREVIOUS OFFICE NOTE------ Urination stable with control Hot flashes fully resolved Current other side effects include mild fatigue, some modification of strength Continue three-month follow-up till 2 years from completion of therapy After 2 years of completion of therapy will continue monitoring PSA every 6 months. Prostate cancer June 2021 PSA 4.5 Fletcher 4+4 - initial therapy 18 month GnRH with external beam radiation at [facility] completed December 2021 - Last GnRH 10/18 PSA 03/18 0.1 T 11, 06/18 0.1 T 3, 10/18 0.1 T3, 01/17 0.1 T3, 08/19 PSA <0.1, T<3, 2 PSA <0.1, T 36, 04/20 PSA <0.1, T 167, 07/21 PSA <0.1, T 267 Initial therapy external beam radiation with 18 months hormone therapy via [facility] 01/[address] Holland June 2021 Initial PSA at diagnosis 4.5 Histologic type: Adenocarcinoma; acinar type Histologic grade:? Kyle score: 4+4=8? % of pattern 4: 100%? % of pattern 5: 0% Grade group: 4 Tumor quantitation:? Number cores positive: 3? Total number of cores: 12? % of tissue involved: 5-10% of all tissue examined - left mid lateral 30%, left apex lateral 30%, left apex medial 20% - Total - 7% Periprostatic fat inv.: Not identified, Seminal vesicle inv.: Not identified, Perineural inv.: Present, LVI: Not identified Staging - 08/17 prostate MRI with 1.7 cm left apical posterior lesion, irregularity of prostate bowel injury suggestive of ISAURA, 1.4 cm pelvic sidewall node noted - 08/17 bone scan no evidence of disease PFSH Medical History Gout Arthritis Back pain Sleep apnea Asthma COVID-19 vaccine series completed COVID-19 Failure of attempted procedure BPH (benign prostatic hyperplasia) GERD (gastroesophageal reflux disease) Diabetes Elevated cholesterol Surgical History History of esophagogastroduodenoscopy (EGD) H/O colonoscopy History of total left knee replacement Social History Household Members: Spouse Housing: House Are you a primary child day care center worker to a significant other at home: No Do you presently have visiting nurse or other home services: No Patient Tobacco Use Status: Former Tobacco user Tobacco use type: Cigarette Second Hand Smoke Exposure: No Review of Systems Const Reports as per HPI Eyes Reports no additional complaints ENT Reports no additional complaints Card Reports as per HPI Resp Reports as per HPI GI Reports as per HPI Reports as per HPI Neuro Reports no additional complaints Psych Reports no additional complaints Endo Reports as per HPI Physical Exam Const General: cooperative, healthy appearing, comfortable, no acute distress, well developed, alert and awake Orientation/consciousness: patient oriented x3 Limitations: no limitations HEENT Head: Yes normal to inspection, Yes normocephalic and Yes atraumatic Ears: hearing grossly normal bilaterally Eyes General: appearance normal, both eyes and all related structures Neck Neck: Yes normal visual inspection and Yes trachea midline Chest Chest palpation & inspection: normal inspection of the chest Resp Effort & Inspection: normal respiratory effort and able to speak in complete sentences Cardio Rate: regular rate GI Inspection: Yes normal to inspection General: Yes no CVA tenderness Back/Spine/Pelvis Back: no CVA tenderness Skin General skin exam: no rashes or lesions noted Neuro General: patient oriented x3 Extrem General: Yes normal to inspection Psych Appearance: grossly normal and well kempt Mental Status: mental status grossly normal Speech and movement: Normal speech and movement present and Clear speech present Affect: normal affect Attitude: cooperative Thought process: Normal thought process present Thought content: Normal thought content present Insight: Fair insight present (Psych) Judgement: Fair judgement present (Psych) Results AMB Urinalysis, Automated UA Leukoctes 0 Franki/uL Last Edit by Wendy Sealsss on 07/07/24 15:14 UA Nitrite Negative Last Edit by Tag & Seee Sumbolass on 07/07/24 15:14 UA Urobilinogen 0.2 mg/dL Last Edit by Tag & Seee Sumbolass on 07/07/24 15:14 UA Protein 0 mg/dL Last Edit by Jukedeckyce Sumbolass on 07/07/24 15:14 UA pH 5.5 Last Edit by Jukedeckyce Eferio on 07/07/24 15:14 UA Blood 0 Bryson/uL Last Edit by Tag & Seee Eferio on 07/07/24 15:14 UA Specific [place] 1.010 Last Edit by Lawn Love on 07/07/24 15:14 UA Ketone Negative Last Edit by Lawn Love on 07/07/24 15:14 UA Bilirubin 0 mg/dL Last Edit by Lawn Love on 07/07/24 15:14 UA Glucose 1000 mg/dL Last Edit by Lawn Love on 07/07/24 15:14 Results Reviewed Results Reviewed: Laboratory Last Values Urine pH (Auto) 5.5 07/07/24 15:13 Specific [place] (Auto) 1.010 07/07/24 15:13 Urine Protein (Auto) 0 mg/dL 07/07/24 15:13 Glucose (UA)(Auto) 1000 mg/dL 07/07/24 15:13 Urine Ketones (Auto) Negative 07/07/24 15:13 Urine Blood (Auto) 0 Bryson/uL 07/07/24 15:13 Urine Nitrite (Auto) Negative 07/07/24 15:13 Urine Bilirubin (Auto) 0 mg/dL 07/07/24 15:13 Urine Urobilinogen (Auto) 0.2 mg/dL 07/07/24 15:13 Leukocyte Esterase (Auto) 0 Franki/uL 07/07/24 15:13 Date of Service: 06/10/24 EXAMINATION: NM BONE SCAN OF THE WHOLE BODY FINDINGS: In the head, there is a small equivocal focus of increased activity suggested just anterior to the skull vertex in the lateral spot views of the head which may be due to some prominence of the coronal suture, but is not seen on the anterior views and is considered equivocal. In the thoracic cage and upper extremities, there is mildly increased activity in the sternoclavicular joints bilaterally and minimally increased activity is present in the right acromioclavicular joint and at the costochondral junctions of both first ribs. There is minimally increased activity in the glenohumeral articulation of both shoulders, more prominently on the right and there is mildly increased activity in the radial side of both hands, probably in the first carpal metacarpal joints and in additional faint periarticular foci of increased activity are present in both hands. All of these findings are likely arthritic in etiology. In the spine, there is minimally increased activity in small foci bilaterally at the T8/T9 level. These are probably in the posterior elements and due to facet arthropathy. A very minimal thoracolumbar scoliosis is present with lumbar convexity to the left. In the pelvis, no significant abnormalities are present. In the lower extremities, a photopenic defect from a well-healed left total knee prosthesis is noted. The whole-body anterior and posterior images of this are degraded by motion of this leg during the image acquisition, but additional lateral views obtained show that there are no significant abnormalities are present adjacent to the prosthesis. Minimally increased activity in the patellar and medial compartments of the right knee likely arthritic or also noted. There are foci of mildly increased activity in the mid feet bilaterally and in both ankles, slightly more prominently on the right. The 04/29/2024 CT scan shows degenerative changes in the spine including some facet arthropathy in the mid thoracic spine and corresponds to the mild bone scan abnormalities in this region described above. No other definite bony abnormalities are noted. The urinary bladder and faint visualization of both kidneys are noted. IMPRESSION: Mild nonspecific abnormalities are noted as described above and these are all likely arthritic or traumatic in etiology. None of these abnormalities is strongly suspicious for metastatic disease. Assessment & Plan Assessment & Plan (1) Nephrolithiasis: Code(s): N20.0 - Calculus of kidney Category: Medical (2) Prostate cancer: Comment: June 2021 high-grade prostate cancer Fletcher 8 - EXBRT and hormone therapy Code(s): C61 - Malignant neoplasm of prostate Category: Medical Plan In office urinalysis results reviewed with the patient today; as noted above. Recent bone scan results reviewed with the patient today; as noted above. Recent PSA and testosterone results reviewed with the patient today; as noted above. Patient currently denies any bothersome urinary issues or concerns. He reports be happy with current voiding parameters. Will obtain renal ultrasound in 24 urine collection as discussed. Discussed, educated, and stressed the importance of drinking plenty of water daily in relation to nephrolithiasis as well as overall health and well-being. Follow-up in 3 months with imaging and 24 hour urine; or sooner with any issues, concerns, and or questions. Orders: Orders US renal BI 3 Months N20.0 - Calculus of kidney AMB Urinalysis Automated Today Z13.9 - Encounter for screening, unspecified URORISK Today N20.0 - Calculus of kidney Patient Instructions: The patient had an opportunity to ask questions regarding the treatment plan. All questions were answered. Physical exam, labs, and imaging were discussed and reviewed in detail. As well as risks, benefits, and discussion of treatment choices. No major barriers to understanding were identified. The patient expressed understanding and agreement with the above treatment plan. The patient was made aware they should contact our office by phone for worsening of their current condition, the appearance of new symptoms, or with any questions or concerns. Compliance is encouraged with any medications and follow up testing that is ordered. It is a privilege to be allowed the opportunity to participate in? your urological care.? Again, if you have any questions or concerns If you have any questions or concerns please do not hesitate to contact me. The office is [phone]. This note is constructed using voice recognition software. While every effort has been made to ensure accuracy java j2ee technical lead errors may have been included. Yours sincerely, KAYLENE Gonzalez Coding Level of Care Code Est Pt Level 4 (49965) Complex EM visit Add On G2211 Diagnoses Nephrolithiasis N20.0 Prostate cancer C61
== END 2024-07-07 15:33 | disposition home or self-care (01) ==
PROVIDERS: PCP Internal Medicine; Visit Provider Nurse Practitioner Family
DX: N20.0 Calculus of kidney (principal); C61 Malignant neoplasm of prostate; Z13.9 Encounter for screening, unspecified
CPT/HCPCS: 99214; G2211

== ENCOUNTER → 2024-07-07 14:13 | Outpatient (BNVA) | payer MEDICARE, OTHER, SELFPAY | PROVIDERS: PCP Internal Medicine; Visit Provider Nurse Practitioner Family | DX: N20.0 Calculus of kidney (principal); C61 Malignant neoplasm of prostate | CPT/HCPCS: 81003; 99212 ==

== ENCOUNTER 2024-10-08 14:19 | Outpatient (REF) | payer MEDICARE, OTHER, SELFPAY ==
--- OUTSIDE RECORDS SUMMARY | 2024-10-08 14:22 | XMS_ITS ---
Author Name [facility] Organization Unknown History of Medication Use Medication Directions Dispensed Refills Start Date End Date Stat oxybutynin chloride 5 mg tablet TAKE 1 TABLET BY MOUTH AT BEDTIME FOR BLADDER SPASM 08/20/2024 10/27/9999 active tamsulosin 0.4 mg capsule TAKE 1 TABLET BY MOUTH DAIY AT BEDTIME 08/20/2024 10/27/9999 active oxycodone-acetamino phen 5 mg-325 mg tablet TAKE 1 TABLET BY MOUTH EVERY 6 TO 8 HOURS NEEDED FOR PAIN 08/20/2024 10/27/9999 active lorazepam 1 mg tablet TAKE 1 TABLET BY MOUTH EVERY 6 HOURS NEEDED (ANAL SPASM) FOR UP TO 7 DAYS. 08/20/2024 10/27/9999 active oxycodone 5 mg tablet TAKE 1 TABLET BY MOUTH EVERY 6 HOURS NEEDED FOR PAIN 08/20/2024 10/27/9999 active rosuvastatin 20 mg tablet TAKE 1 TABLET BY MOUTH EVERY DAY 08/20/2024 10/27/9999 active fenofibrate 54 mg tablet TAKE 1 TABLET BY MOUTH EVERY DAY WITH FOOD FOR 30 DAYS 08/20/2024 10/27/9999 active tadalafil 5 mg tablet TAKE 1 TABLET BY MOUTH EVERY DAY 08/20/2024 10/27/9999 active allopurinol 300 mg tablet TAKE 1 TABLET BY MOUTH EVERY DAY 08/20/2024 10/27/9999 active meloxicam 15 mg tablet Take 1 tablet every day by oral route. 08/20/2024 10/27/9999 active Basaglar KwikPen U-100 Insulin 100 unit/mL (3 mL) subcutaneous INJECT 18 UNITS SUBCUTANEOUSLY EVERY DAY SUBCUTANEOUS ONCE A DAY 08/20/2024 10/27/9999 active amoxicillin 500 mg tablet TAKE 1 TABLET BY MOUTH THREE TIMES A DAY FOR 7 DAYS 08/20/2024 10/27/9999 active naproxen 500 mg tablet TAKE 1 TABLET BY MOUTH EVERY 12 HOURS WITH FOOD OR MILK NEEDED FOR 15 DAYS 08/20/2024 10/27/9999 active montelukast 10 mg tablet TAKE 1 TABLET BY MOUTH EVERY DAY 08/20/2024 10/27/9999 active Rectiv 0.4 % (w/w) ointment APPLY TO AFFECTED AREA TWICE A DAY 08/20/2024 10/27/9999 active Cipro HC 0.2 %-1 % ear drops,suspension PUT 3 DROPS IN AFFECTED EAR TWICE A DAY FOR 7 DAYS 08/20/2024 10/27/9999 active ibuprofen 600 mg tablet TAKE 1 TABLET 3 TIMES A DAY NEEDED 08/20/2024 10/27/9999 active tadalafil 10 mg tablet TAKE 1.5 TABS DAILY NEEDED 1 HR PRIOR TO SEXUAL ACTIVITY, NO MORE THAN 2-3 TIMES A WEEK 08/20/2024 10/27/9999 active omeprazole 40 mg capsule,delayed release TAKE 1 CAPSULE BY MOUTH EVERY DAY 30 MINUTES BEFORE MORNING MEAL FOR 90 DAYS 08/20/2024 10/27/9999 active tramadol 50 mg tablet TAKE 1 TABLET BY MOUTH NEEDED 3 TIMES DAILY X7 DAYS 08/20/2024 10/27/9999 active metoprolol succinate ER 25 mg tablet,extended release 24 hr TAKE 1 TABLET BY MOUTH EVERY DAY 08/20/2024 10/27/9999 active Jardiance 10 mg tablet TAKE 1 TABLET BY MOUTH EVERY DAY FOR 90 DAYS 08/20/2024 10/27/9999 active diazepam 5 mg tablet TAKE 1 TABLET BY MOUTH ONCE TAKE PRIOR TO PROCEDURE 08/20/2024 10/27/9999 active BD Shanelle 2nd Gen Pen Needle 32 gauge x 32 USE DIRECTED TWICE A DAY 30 08/20/2024 10/27/9999 active folic acid 1 mg tablet TAKE 1 TABLET BY MOUTH EVERY DAY 08/20/2024 10/27/9999 active metformin ER 500 mg tablet,extended release 24 hr TAKE 1 TABLET BY MOUTH TWICE A DAY 08/20/2024 10/27/9999 active Gavilax 17 gram/dose oral powder TAKE 17 G BY MOUTH DAILY FOR 360 DAYS. MIX IN 12 OUNCES OF A CLEAR LIQUID. 08/20/2024 10/27/9999 active Ozempic 0.25 mg or 0.5 mg (2 mg/3 mL) subcutaneous pen injector 0.5 SUBCUTANEOUS ONCE WEEKLY E11.9 30 DAYS 08/20/2024 10/27/9999 active albuterol sulfate HFA 90 mcg/actuation aerosol inhaler INHALE 2 PUFFS BY MOUTH FOUR TIMES A DAY NEEDED FOR 90 DAYS 08/20/2024 10/27/9999 active
== END 2024-10-08 14:20 | disposition home or self-care (01) ==
LOC: HO.US 14:19
PROVIDERS: PCP Internal Medicine; Visit Provider Nurse Practitioner Family
DX: N20.0 Calculus of kidney (principal)
CPT/HCPCS: 76775

== ENCOUNTER 2024-11-16 07:33 | Outpatient (AMB) | payer MEDICARE, OTHER, SELFPAY ==
--- NOTE | 2024-11-16 07:40 | A.OFFVIS_ITS ---
Intake Visit Reasons: 3M US/Litholink(set) Intake Note: 3M US/Litholink(set) Solid State Tester Required: No Allergies No Known Allergies Allergy (Verified 11/16/24 08:29) Medication List - Last Reconciled 11/16/24 by MADISON Gonzalez- albuterol sulfate 90 mcg/actuation 2 puffs inhalation QID PRN allopurinol 300 mg PO DAILY blood sugar diagnostic As directed empagliflozin (Jardiance) 10 mg PO DAILY fenofibrate 54 mg PO DAILY fluticasone propionate 110 mcg/actuation (Flovent HFA) 1 puff PO BID insulin glargine 18 units subcut QPM lisinopril 10 mg PO DAILY metformin ER 1 tab PO BID metoprolol succinate ER 25 mg PO DAILY montelukast 10 mg PO QPM omeprazole 20 mg PO BID oxybutynin chloride 5 mg PO BEDTIME pen needle, diabetic As directed phenazopyridine (Azo Urinary Pain Relief) 199 mg (2 x 99.5 mg) PO BID-TID PRN rosuvastatin 20 mg PO DAILY semaglutide (Ozempic) mg subcut tadalafil (Cialis) 15 mg (1.5 x 10 mg) PO .PRN 30 days tadalafil (Cialis) 5 mg PO DAILY 90 days HPI Comments Details: Rex is a very pleasant 69-year-old male patient of Dr. Villafuerte who was accompanied by his at today's office visit. He has a past medical history of gout, arthritis, back pain, sleep apnea unable to tolerate CPAP, asthma, BPH, GERD, diabetes, hypercholesteremia, and prostate cancer. He presents to the office today for follow-up of his nephrolithiasis. Recent unofficial/preliminary renal ultrasound results reviewed with the patient today. 10/20 bilateral kidneys with no calculi, masses, and or cysts. Right-sided hydronephrosis. Ureteral jets were assessed due to presence of right hydroureter and noted to be present. Litholink results reviewed we discussed suboptimal urine volume of 2 L however will attempt to increase to 2.5 L. We also discussed considering low-salt diet. He otherwise denies any bothersome urinary issues or concerns. We discussed potential causes of right-sided hydronephrosis as patient with previous right ureteral stone and underwent right ureteroscopy with stent placement with Dr. Akhil Hernandez 06/05/24. Previous workup has included a bone scan 06/[address] 05/20 noted possible lesion with a history of prostate cancer therefore bone scan was ordered and performed. Bone scan noted mild nonspecific abnormalities are noted however none of these abnormalities are strongly suspicious for metastatic disease per radiology report. He discusses his increase in water consumption. He denies any bothersome urinary issues or concerns at this time. He denies urinary urgency, urinary frequency, incontinence, nocturia, hematuria, dysuria, foul smelling urine, changes to urinary stream, fever, and or chills. He is happy with his current voiding parameters. He discusses his passion for building cars. He otherwise offers no other issues or concerns at this time. PREVIOUS OFFICE NOTE------ Urination stable with control Hot flashes fully resolved Current other side effects include mild fatigue, some modification of strength Continue three-month follow-up till 2 years from completion of therapy After 2 years of completion of therapy will continue monitoring PSA every 6 months. Prostate cancer June 2021 PSA 4.5 Kyle 4+4 - initial therapy 18 month GnRH with external beam radiation at [facility] completed December 2021 - Last GnRH 10/18 PSA 03/18 0.1 T 11, 06/18 0.1 T 3, 10/18 0.1 T3, 01/17 0.1 T3, 08/19 PSA <0.1, T<3, 12/21 PSA <0.1, T 36, 04/20 PSA <0.1, T 167, 07/21 PSA <0.1, T 267 Initial therapy external beam radiation with 18 months hormone therapy via [facility] 01/[address] Holland June 2021 Initial PSA at diagnosis 4.5 Histologic type: Adenocarcinoma; acinar type Histologic grade:? Kyle score: 4+4=8? % of pattern 4: 100%? % of pattern 5: 0% Grade group: 4 Tumor quantitation:? Number cores positive: 3? Total number of cores: 12? % of tissue involved: 5-10% of all tissue examined - left mid lateral 30%, left apex lateral 30%, left apex medial 20% - Total - 7% Periprostatic fat inv.: Not identified, Seminal vesicle inv.: Not identified, Perineural inv.: Present, LVI: Not identified Staging - 08/17 prostate MRI with 1.7 cm left apical posterior lesion, irregularity of prostate bowel injury suggestive of ISAURA, 1.4 cm pelvic sidewall node noted - 08/17 bone scan no evidence of disease. [facility] Medical History Gout Arthritis Back pain Sleep apnea Asthma COVID-19 vaccine series completed COVID-19 Failure of attempted procedure BPH (benign prostatic hyperplasia) GERD (gastroesophageal reflux disease) Diabetes Elevated cholesterol Surgical History History of esophagogastroduodenoscopy (EGD) H/O colonoscopy History of total left knee replacement Social History Household Members: Spouse Housing: House Are you a primary memory care program director to a significant other at home: No Do you presently have visiting nurse or other home services: No Patient Tobacco Use Status: Former Tobacco user Tobacco use type: Cigarette Second Hand Smoke Exposure: No Review of Systems Const Reports as per [facility] Eyes Reports no additional complaints ENT Reports no additional complaints Card Reports as per [facility] Resp Reports as per [facility] GI Reports as per [facility] Reports as per HPI Neuro Reports no additional complaints Psych Reports no additional complaints Endo Reports as per HPI Physical Exam Const General: cooperative, healthy appearing, comfortable, no acute distress, well developed, alert and awake Orientation/consciousness: patient oriented x3 Limitations: no limitations HEENT Head: Yes normal to inspection, Yes normocephalic and Yes atraumatic Ears: hearing grossly normal bilaterally Eyes General: appearance normal, both eyes and all related structures Neck Neck: Yes normal visual inspection and Yes trachea midline Chest Chest palpation & inspection: normal inspection of the chest Resp Effort & Inspection: normal respiratory effort and able to speak in complete sentences Cardio Rate: regular rate GI Inspection: Yes normal to inspection General: Yes no CVA tenderness Back/Spine/Pelvis Back: no CVA tenderness Skin General skin exam: no rashes or lesions noted Neuro General: patient oriented x3 Extrem General: Yes normal to inspection Psych Appearance: grossly normal and well kempt Mental Status: mental status grossly normal Speech and movement: Normal speech and movement present and Clear speech present Affect: normal affect Attitude: cooperative Thought process: Normal thought process present Thought content: Normal thought content present Insight: Fair insight present (Psych) Judgement: Fair judgement present (Psych) Results AMB Urinalysis, Automated UA Leukoctes 0 Franki/uL Last Edit by Haley Timothy on 11/16/24 07:57 UA Nitrite Negative Last Edit by Haley Timothy on 11/16/24 07:57 UA Urobilinogen 0.2 mg/dL Last Edit by Haley Timothy on 11/16/24 07:57 UA Protein 15 mg/dL Last Edit by Haley Timothy on 11/16/24 07:57 UA pH 6.0 Last Edit by Haley Timothy on 11/16/24 07:57 UA Blood 0 Bryson/uL Last Edit by Haley Timothy on 11/16/24 07:57 UA Specific [place] 1.015 Last Edit by Haley Timothy on 11/16/24 07:57 UA Ketone Negative Last Edit by Haley Timothy on 11/16/24 07:57 UA Bilirubin 0 mg/dL Last Edit by Haley Timothy on 11/16/24 07:57 UA Glucose 1000 mg/dL Last Edit by Haley Timothy on 11/16/24 07:57 Results Reviewed Results Reviewed: Laboratory Last Values Urine pH (Auto) 6.0 11/16/24 07:44 Specific [place] (Auto) 1.015 11/16/24 07:44 Urine Protein (Auto) 15 mg/dL 11/16/24 07:44 Glucose (UA)(Auto) 1000 mg/dL 11/16/24 07:44 Urine Ketones (Auto) Negative 11/16/24 07:44 Urine Blood (Auto) 0 Bryson/uL 11/16/24 07:44 Urine Nitrite (Auto) Negative 11/16/24 07:44 Urine Bilirubin (Auto) 0 mg/dL 11/16/24 07:44 Urine Urobilinogen (Auto) 0.2 mg/dL 11/16/24 07:44 Leukocyte Esterase (Auto) 0 Franki/uL 11/16/24 07:44 Assessment & Plan Assessment & Plan (1) Prostate cancer: Comment: June 2021 high-grade prostate cancer [place] 8 - EXBRT and hormone therapy Code(s): C61 - Malignant neoplasm of prostate Category: Medical (2) Hydronephrosis: Code(s): N13.30 - Unspecified hydronephrosis Category: Medical (3) Nephrolithiasis: Code(s): N20.0 - Calculus of kidney Category: Medical (4) Weak urinary stream: Code(s): R39.12 - Poor urinary stream Category: Medical (5) BPH w urinary obs/LUTS: Code(s): N40.1 - Benign prostatic hyperplasia with lower urinary tract symptoms; N13.8 - Other obstructive and reflux uropathy Category: Medical Plan In office urinalysis results reviewed with the patient today; as noted above. Recent Litholink results reviewed with the patient today; as noted above. Recent renal ultrasound results reviewed with the patient today We discussed at length potential causes of hydronephrosis and further workup to include CT and labs. We discussed suboptimal urine volume as well as considering low-salt diet. He denies any bothersome urinary issues. He reports be happy with current voiding parameters. Will obtain PSA, BUN, creatinine, and testosterone Will obtain CT for further assessment evaluation. Follow-up in 1-3 months with labs and imaging to be completed prior; or sooner with any issues, concerns, and or questions. Orders: Orders CT urogram Today N13.30 - Unspecified hydronephrosis AMB Urinalysis Automated Today Z13.9 - Encounter for screening, unspecified Blood Urea Nitrogen Today R39.15 - Urgency of urination Creatinine Today R39.15 - Urgency of urination Prostate Specific Antigen Today C61 - Malignant neoplasm of prostate Testosterone, Free/Total Today C61 - Malignant neoplasm of prostate Patient Instructions: The patient had an opportunity to ask questions regarding the treatment plan. All questions were answered. Physical exam, labs, and imaging were discussed and reviewed in detail. As well as risks, benefits, and discussion of treatment choices. No major barriers to understanding were identified. The patient expressed understanding and agreement with the above treatment plan. The patient was made aware they should contact our office by phone for worsening of their current condition, the appearance of new symptoms, or with any questions or concerns. Compliance is encouraged with any medications and follow up testing that is ordered. It is a privilege to be allowed the opportunity to participate in? your urological care.? Again, if you have any questions or concerns If you have any questions or concerns please do not hesitate to contact me. The office is [phone]. This note is constructed using voice recognition software. While every effort has been made to ensure accuracy test grader errors may have been included. Yours sincerely, Shirley Ball MANAGER [employer]-BC Coding Level of Care Code Est Pt Level 3 (08158) Complex EM visit Add On G2211 Diagnoses Prostate cancer C61 Hydronephrosis N13.30 Nephrolithiasis N20.0 Weak urinary stream R39.12 BPH w urinary obs/LUTS N40.1; N13.8
== END 2024-11-16 08:28 | disposition home or self-care (01) ==
PROVIDERS: PCP Internal Medicine; Visit Provider Nurse Practitioner Family
DX: C61 Malignant neoplasm of prostate (principal); N13.30 Unspecified hydronephrosis; N40.1 Benign prostatic hyperplasia with lower urinary tract symptoms; N20.0 Calculus of kidney; R39.12 Poor urinary stream; N13.8 Other obstructive and reflux uropathy; Z13.9 Encounter for screening, unspecified
CPT/HCPCS: 99213; G2211

== ENCOUNTER → 2024-11-16 07:33 | Outpatient (BNVA) | payer MEDICARE, OTHER, SELFPAY | PROVIDERS: PCP Internal Medicine; Visit Provider Nurse Practitioner Family | DX: C61 Malignant neoplasm of prostate (principal); N13.30 Unspecified hydronephrosis; N20.0 Calculus of kidney; N40.1 Benign prostatic hyperplasia with lower urinary tract symptoms; R39.12 Poor urinary stream; N13.8 Other obstructive and reflux uropathy; R39.15 Urgency of urination | CPT/HCPCS: 81003; 99212 ==

== ENCOUNTER 2025-01-27 10:43 | Outpatient (REF) | payer MEDICARE, OTHER, SELFPAY ==
--- NOTE | ~2025-01-27 | CT_ITS ---
CLINICAL HISTORY: N13.30 - Unspecified hydronephrosis CT abdomen and pelvis with and without contrast Comparison: CT/SR - [facility] - 04/29/24 14:54 EDT Findings: No consolidation or effusion. Unremarkable gallbladder and solid organs. No urolithiasis. No bowel obstruction, pneumoperitoneum, or pneumatosis. 22 mm fat containing umbilical hernia. Pelvic contents unremarkable. Normal appendix. No acute fracture. IMPRESSION: No acute findings. This document has been electronically signed by: Jessee Peña MD on 01/28/2025 16:41:21
[2025-01-27] MEDS: iohexoL 350 MG/ML 100 ML INFUS..BTL IV (11:38)
--- OUTSIDE RECORDS SUMMARY | 2025-01-27 12:46 | XMS_ITS | Data Portability ---
Author Organization [place] [facility] Ag[facility] Sherwood [facility] [place] Address [address] [place] [address] Care Team Providers Care Clinical Project Leader Name Role Phone RYAN BROWN Referring Provider [phone] Assessment Encounter Date Assessment Date Assessment LastModified by Organization Details LastModified Time 08/13/2024 08/13/2024 68-year-old male with chronic bilateral shoulder pain. The focal area of swelling over the right AC joint is consistent with lipoma versus soft tissue cyst. I reviewed with him that this is not a bone spur. It is also been decreasing in size without intervention and not particularly bothersome. He will continue to monitor this. Otherwise findings today are consistent with bilateral osteoarthritis, right more symptomatic than left however he does have weakness consistent with chronic degenerative partial versus full-thickness rotator cuff tearing on the left today. He is relieved with reassurance. We reviewed treatment options. He defers physical therapy for now. Consideration for this versus injection therapy versus further workup with MRI in the future as needed. I will send in a one-time prescription of meloxicam to be used sparingly. GI precautions reviewed. Questions invited and answered. Patient/his verbalized understanding and agreement plan. ana Not available 08/18/2024 17:49:20 Plan of Treatment Reminders Order Date Submit Date Provider Last Modified By Organization Details Last Modified Time Details Appointments None recorded. Lab None recorded. Referral None recorded. Procedures None recorded. Surgeries None recorded. Imaging XR, shoulder, 2 or more view 2023 024 [email or web address] 2 [facility], [address], [address], [place], [address], 16:42:28 XR, shoulder, 2 or more view 2023 [email or web address] 2 [facility], [address], [place], [address], 16:42:28 Medication Orders meloxicam 15 mg tablet 2023 [id number], [address] [place], [address], 17:49:36 Patient TargetsNo targets recorded. Patient Instructions Encounter Date Encounter Id Patient Instructions Last Modified By Organization Details Last Modified Time 08/13/2024 [id number] 3 views each of the bilateral shoulders were obtained today 08/13/2024 in the [place] office. Moderate glenohumeral joint space narrowing and degenerative changes of the AC joint bilaterally. Bony demineralization. Acromiohumeral interval is intact. Type II acromion's. No acute fracture dislocation appreciated. ana Not available 08/18/2024 17:46:55 Reason for Referral None Reported. Procedures Surgical History Date Name Laterality Status Provider Name and Address Organization Details Recorded Time decompression of median nerve completed Moraima Chen [place] [facility] 08/13/2024 14:52:04 arthroplasty of knee completed Moraimaakshat Chen [place] - [facility] 08/13/2024 14:52:11 Imaging Results None recorded. Procedure Notes None recorded. Medical Equipment None Reported. Allergies No known drug allergies Medications Name Sig Start Date Stop Date Status Note LastModified by Organization Details LastModified Time meloxicam 15 mg tablet TAKE 1 TABLET BY MOUTH EVERY DAY active Not Available Not Available No t Available omeprazole 40 mg capsule,alvaro yed release TAKE 1 CAPSULE BY MOUTH EVERY DAY 30 MINUTES BEFORE MORNING MEAL FOR 90 DAYS active Not Available Not Available No t Available tramadol 50 mg tablet TAKE 1 TABLET BY MOUTH NEEDED 3 TIMES DAILY X7 DAYS active Not Available Not Available No t Available amoxicillin 500 mg tablet TAKE 1 TABLET BY MOUTH THREE TIMES A DAY FOR 7 DAYS active Not Available Not Available N ot Available oxycodone-ac etaminophen 5 mg-325 mg tablet TAKE 1 TABLET BY MOUTH EVERY 6 TO 8 HOURS NEEDED FOR PAIN active Not Available Not Available No t Available tamsulosin 0.4 mg capsule TAKE 1 TABLET BY MOUTH DAIY AT BEDTIME active Not Available Not Available N ot Available folic acid 1 mg tablet TAKE 1 TABLET BY MOUTH EVERY DAY active Not Available Not Available No t Available montelukast 10 mg tablet TAKE 1 TABLET BY MOUTH EVERY DAY active Not Available Not Available No t Available allopurinol 300 mg tablet TAKE 1 TABLET BY MOUTH EVERY DAY active Not Available Not Available No t Available metoprolol succinate ER 25 mg tablet,exten ded release 24 hr TAKE 1 TABLET BY MOUTH EVERY DAY active Not Available Not Available No t Available lorazepam 1 mg tablet TAKE 1 TABLET BY MOUTH EVERY 6 HOURS NEEDED (ANAL SPASM) FOR UP TO 7 DAYS. active Not Available Not Available No t Available ibuprofen 600 mg tablet TAKE 1 TABLET 3 TIMES A DAY NEEDED active Not Available Not Available No t Available Cipro HC 0.2 %-1 % ear drops,suspen elian PUT 3 DROPS IN AFFECTED EAR TWICE A DAY FOR 7 DAYS active Not Available Not Available No t Available albuterol sulfate HFA 90 mcg/actuatio n aerosol inhaler INHALE 2 PUFFS BY MOUTH FOUR TIMES A DAY NEEDED FOR 90 DAYS active Not Available Not Available Not Available oxybutynin chloride 5 mg tablet TAKE 1 TABLET BY MOUTH AT BEDTIME FOR BLADDER SPASM active Not Available Not Available No t Available metformin ER 500 mg tablet,exten ded release 24 hr TAKE 1 TABLET BY MOUTH TWICE A DAY active Not Available Not Available No t Available naproxen 500 mg tablet TAKE 1 TABLET BY MOUTH EVERY 12 HOURS WITH FOOD OR MILK NEEDED FOR 15 DAYS active Not Available Not Available No t Available diazepam 5 mg tablet TAKE 1 TABLET BY MOUTH ONCE TAKE PRIOR TO PROCEDURE active Not Available Not Available No t Available oxycodone 5 mg tablet TAKE 1 TABLET BY MOUTH EVERY 6 HOURS NEEDED FOR PAIN active Not Available Not Available No t Available rosuvastatin 20 mg tablet TAKE 1 TABLET BY MOUTH EVERY DAY active Not Available Not Available No t Available tadalafil 5 mg tablet TAKE 1 TABLET BY MOUTH EVERY DAY active Not Available Not Available No t Available tadalafil 10 mg tablet TAKE 1.5 TABS DAILY NEEDED 1 HR PRIOR TO SEXUAL ACTIVITY, NO MORE THAN 2-3 TIMES A WEEK active Not Available Not Available No t Available fenofibrate 54 mg tablet TAKE 1 TABLET BY MOUTH EVERY DAY WITH FOOD FOR 30 DAYS active Not Available Not Available No t Available Gavilax 17 gram/dose oral powder TAKE 17 G BY MOUTH DAILY FOR 360 DAYS. MIX IN 12 OUNCES OF A CLEAR LIQUID. active Not Available Not Available No t Available Rectiv 0.4 % (w/w) ointment APPLY TO AFFECTED AREA TWICE A DAY active Not Available Not Available No t Available Jardiance 10 mg tablet TAKE 1 TABLET BY MOUTH EVERY DAY FOR 90 DAYS active Not Available Not Available No t Available Basaglar KwikPen U-100 Insulin 100 unit/mL (3 mL) subcutaneous INJECT 18 UNITS SUBCUTANEOU SLY EVERY DAY SUBCUTANEOU S ONCE A DAY active Not Available Not Available No t Available BD Shanelle 2nd Gen Pen Needle 32 gauge x 5/32 USE DIRECTED TWICE A DAY 30 active Not Available Not Available No t Available Ozempic 0.25 mg or 0.5 mg (2 mg/3 mL) subcutaneous pen injector 0.5 SUBCUTANEOU S ONCE WEEKLY E11.9 30 DAYS active Not Available Not Available No t Available Vitals Date Recorded Body height Body mass index (BMI) Body weight Provider Name and Address Organization Details Last Updated DateTime 08/13/2024 185.42 cm 30.3 kg/m2 629342.25 g Moraima Chen [place] [facility] 08/13/2024 14:46:40 Social History Question Answer Notes LastModified by Organizat ion Details LastModified Time Tobacco Smoking Status Never Smoker Moraima Chen [facility], [place] - [facility] 08/13/2024 14:47:03 What Is Your Level Of Alcohol Consumption? None Information not available 08/13/2024 Are You Blind Or Do You Have Difficulty Seeing? No Information not available 08/13/2024 Are You Currently Employed? No Information not available 08/13/2024 Are You Deaf Or Do You Have Serious Difficulty Hearing? No Information not available 08/13/2024 Do You Use Any Illicit Or Recreational Drugs? No Information not available 08/13/2024 Are You Currently In School? No Information not available 08/13/2024 Do You Or Have You Ever Used Any Other Forms Of Tobacco Or Nicotine? No Information not available 08/13/2024 Sex: Unknown Functional Status Question Answer Note LastModified by Organization D etails LastModified Time Are you able to care for yourself? Yes Information n ot available 08/13/2024 Mental Status None recorded. Family History Relationship Description Onset Age of this Age Resolved Age Notes LastModified by Organization Details LastModified Time Mother Arthritis Not available 08/13/2024 14:48:52 Mother Diabetes mellitus Not available 2023 14:49:04 Mother Hypertensive disorder Not available 2023 14:49:19 Mother Hyperlipidem ia Not available 2023 14:51:17 Father Arthritis Not available 08/13/2024 14:48:53 Father Diabetes mellitus Not available 2023 14:49:04 Father Malignant neoplastic disease Not available 2023 14:51:39 Sister Hypertensive disorder Not available 2023 14:49:19 Sister Hyperlipidem ia Not available 2023 14:51:17 Sister Malignant neoplastic disease Not available 2023 14:51:39 Medical History Condition Response Diabetes Y Gout Y Cancer Y Asthma Y Past Encounters Encounter ID Performer Location Encounter Start Date Encounter Closed Date Diagnosis/Indication Diagnosis SNOMED-CT Code Diagnosis ICD10 Code Diagnosis Note [id number] Homero Ellison MD [address] [address] 08/13/2024 14:07:02 08/13/2024 15:21:02 Pain of right shoulder region 1176023730 M25.511 Pain of le ft shoulder region 6659741897 M25.512 Health Concerns Section Related Observation LastModified by Organization Detai ls LastModified Time None Recorded Concern Status LastModified by Organization Details LastModified Time None Recorded Advance Directives Directive None Recorded Payers Encounter Date Sequence Insurance Name Policy Number Policy Rodriguez Covered Member ID Rodriguez Member ID Guarantor Name 08/13/2024 1 MEDICARE B-CT: NGS Rex Asher Rachael [id number] Rex RodriguezRachael 08/13/2024 2 [facility] [id number] Rex Asher Stgermain [id number] Rex Rachael Notes Date Note Type Note Provider Name and Address Organization Details Recorded Time 08/13/2024 text/html Pleasant 68-year-old male presents to the office today for evaluation of chronic bilateral shoulder pain, right worse than left but lately they are about the same. He reports following a lifting injury 3 years ago he tore his right biceps tendon. They report around that time he was also undergoing hormone therapy and radiation for treatment of prostate cancer and wonder if this was related. Today he reports aching intermittent pain around the shoulder with some associated clicking and catching. He is also concerned regarding a bone spur that he noticed on the right shoulder a couple of months ago however as of recently this has decreased in size. Treatment to date includes Tylenol and NSAIDs sparingly as well as topical rubs. He is retired. Reported past medical history includes asthma, prostate cancer, gout, type 2 diabetes currently on metformin and Ozempic and Jardiance. Never smoker. Denies EtOH tobacco/nicotine or drug use KRISTEL HALLMAN PA-C [address], [place], [address], [place] [facility] 08/18/2024 17:49:49
--- OUTSIDE RECORDS SUMMARY | 2025-01-27 12:46 | XMS_ITS | Clinical Summary ---
Author Organization [facility] Address [address] [place] [address] Care Team Providers Care Metal Fabricator Welder Name Role Phone Butch Villafuerte MD Primary Care Provider + [phone] Allergies Active Allergy Reactions Criticality Noted Date Comments Aspirin 04/26/2022 Medications Medication Sig Dispensed Refills Start Date End Date Status albuterol 108 (90 Base) MCG/ACT inhaler INHALATION INHALE 2 PUFFS BY MOUTH FOUR TIMES A DAY NEEDED 0 02/05/2022 Active allopurinol (ZYLOPRIM) 300 MG tablet Take 300 mg by mouth daily. 0 01/17/2022 Active Jardiance 10 MG tablet TAKE 1 TABLET BY MOUTH DAILY ONCE DAILY 0 03/30/2022 Active finasteride (PROSCAR) 5 MG tablet Take 5 mg by mouth daily. 0 03/11/2022 Active metFORMIN (GLUCOPHAGE-XR) ER 24 hr tablet 500 mg Take 500 mg by mouth 2 (two) times a day. 0 02/14/2022 Active omeprazole (PriLOSEC) 20 MG capsule Take 20 mg by mouth 2 (two) times a day. 0 03/27/2022 Active montelukast (SINGULAIR) 10 MG tablet Take 10 mg by mouth daily. 0 04/04/2022 Active tamsulosin (FLOMAX) 0.4 MG CAPS Take 0.4 mg by mouth every night at bedtime. 0 03/19/2022 Active folic acid (FOLVITE) tablet 1 mg TAKE 1 TABLET BY MOUTH EVERY DAY 90 tablet 1 04/21/2024 Active Active Problems Problem Noted Date Diagnosed Date Leukopenia 04/26/2022 Prostate cancer 04/26/2022 Family History Medical History Relation Name Comments Diabetes Mother Relation Name Status Comments Mother Social History Tobacco Use Types Packs/Day Years Used Date Smoking Tobacco: Former Cigarettes Q uit: 1971 Smokeless Tobacco: Never Alcohol Use Standard Drinks/Week Comments Not Currently 0 (1 standard drink = 0.6 oz pur e alcohol) Sex and Gender Information Value Date Recorded Sex Assigned at Not on file Gender Identity Not on file Sexual Orientation Not on file Job Start Date Occupation Industry Not on file Not on file Not on file Last Filed Vital Signs Vital Sign Reading Time Taken Comments Blood Pressure 139/75 04/26/2022 1:11 PM EDT Pulse 77 04/26/2022 1:11 PM EDT Temperature 36.1 ??C (97 ??F) 04/26/2022 1:11 PM EDT Respiratory Rate - - Oxygen Saturation 97% 04/26/2022 1:11 PM EDT Inhaled Oxygen Concentration - - Weight 108.1 kg (238 lb 6.4 oz) 04/26/2022 1:11 PM EDT Height 185.4 cm (6' 1 ) 04/26/2022 1:11 PM EDT Body Mass Index 31.45 04/26/2022 1:11 PM EDT Plan of Treatment Health Maintenance Due Date Last Done Comments Hepatitis C Screening 1955 COVID-19 Vaccine (#1) 1961 Pneumococcal Vaccine (1 of 2 - PCV) 1962 Depression Screening 1968 Preventative Health Evaluation 1974 DTap / Tdap / Td (1 - Tdap) 1975 Shingrix-Zoster Vaccine (1 of 2) 1975 Colon Cancer Screening (Colonoscopy) 2001 Fall Risk Assessment 2021 Influenza Vaccine (#1) 2024 RSV Adult > 60+ Yrs or Pregn ant (1 - 1-dose 75+ series) 2031 Hepatitis B Vaccines Aged Out No long er eligible based on patient's age to complete this topic RSV Ped < 20 months Aged Out No longe r eligible based on patient's age to complete this topic Care Teams Metal Fabricator Welder Relationship Specialty Start Date End Date Butch Villafuerte MD [address] [address] PCP - General Internal Medicine 04/26/22
[2025-01-27 13:49] LABS: Creatinine POC 0.9 mg/dL (0.5-1.4); GFR POC > 60
== END 2025-01-27 10:44 | disposition home or self-care (01) ==
LOC: HO.CT 10:43
PROVIDERS: PCP Internal Medicine; Visit Provider Nurse Practitioner Family
DX: N13.30 Unspecified hydronephrosis (principal)
CPT/HCPCS: 74178; 82565; Q9967

== ENCOUNTER → 2025-01-27 10:45 | Outpatient (BNV) | payer MEDICARE, OTHER, SELFPAY | PROVIDERS: PCP Internal Medicine; Visit Provider Radiology Diagnostic Radiology | DX: N13.30 Unspecified hydronephrosis (principal) | CPT/HCPCS: 74178 ==

== ENCOUNTER 2025-02-17 08:15 | Outpatient (AMB) | payer MEDICARE, OTHER, SELFPAY ==
--- NOTE | 2025-02-17 08:17 | A.OFFVIS_ITS ---
Intake Visit Reasons: 3m/CT/labs(labs pending) Intake Note: Patient presents today for a 3 month follow up/CT/Labs Urology Medication:Allopurinol, Tadalafil Blood Thinner:none Antibiotic Allergies:none PVR:48ml Beam Builder Required: No Allergies No Known Allergies Allergy (Verified 02/17/25 10:28) Medication List - Last Reconciled 02/17/25 by MADISON Gonzalez- albuterol sulfate 90 mcg/actuation 2 puffs inhalation QID PRN allopurinol 300 mg PO DAILY blood sugar diagnostic As directed empagliflozin (Jardiance) 10 mg PO DAILY fenofibrate 54 mg PO DAILY fluticasone propionate 110 mcg/actuation (Flovent HFA) 1 puff PO BID insulin glargine 18 units subcut QPM lisinopril 10 mg PO DAILY metformin ER 1 tab PO BID metoprolol succinate ER 25 mg PO DAILY montelukast 10 mg PO QPM omeprazole 20 mg PO BID pen needle, diabetic As directed phenazopyridine (Azo Urinary Pain Relief) 199 mg (2 x 99.5 mg) PO BID-TID PRN rosuvastatin 20 mg PO DAILY semaglutide (Ozempic) mg subcut tadalafil (Cialis) 15 mg (1.5 x 10 mg) PO .PRN 30 days tadalafil (Cialis) 5 mg PO DAILY 90 days HPI Comments Details: Rex is a very pleasant 69-year-old male patient of Dr. Villafuerte. He has a past medical history of gout, arthritis, back pain, sleep apnea unable to tolerate CPAP, asthma, BPH, GERD, diabetes, hypercholesteremia, and prostate cancer. He presents to the office today for follow-up of his nephrolithiasis and prostate cancer. Recent CT urogram results reviewed with the patient today as well as labs. CT urogram 02/19 unremarkable gallbladder and solid organs. No urolithiasis. No bowel obstruction, pneumoperitoneum, or pneumatosis. 22 mm fat containing umbilical hernia. Pelvic contents unremarkable. Normal appendix. No acute fracture. Patient with a previous surgical history for nephrolithiasis with Dr. Akhil Hernandez 06/05/24. Patient underwent right-sided ureteroscopy and stent placement. Previous workup has included a Litholink that noted suboptimal urine volume of 2 L at which time we discussed attempting to increase output to 2.5 L as well as considering a low-salt diet. Patient with a previous history of prostate cancer and question of possible lesion on previous CT at which time a bone scan was ordered for further assessment evaluation 06/20 noted mild non specific abnormalities are noted however none of these abnormalities are strongly suspicious for metastatic disease per radiology report. He discusses his increase in water consumption. He denies any bothersome urinary issues or concerns at this time. He denies urinary urgency, urinary frequency, incontinence, nocturia, hematuria, dysuria, foul smelling urine, changes to urinary stream, fever, and or chills. In office urinalysis results reviewed with the patient today. He is happy with his current voiding parameters. He discusses his passion for building cars in his upcoming vacation on a cruise. He otherwise offers no other issues or concerns at this time. Labs are as follows: PSA: 02/19 <0.1 Testosterone: 02/19 450 Free testosterone: 02/19 4.6 Discussion Notes Today, we reviewed the results of the CT scan to assess the kidney for blockages, hydronephrosis, as well as the presence of kidney stones. I was pleased to inform the patient that there were no blockages or stones identified. However, an incidental finding from the scan indicated the presence of an umbilical hernia. Additionally, the patient's prostate-specific antigen (PSA) level was previously normal, and we planned future surveillance within the next six months. Plan The CT scan results indicated no current urological complications, such as hydronephrosis or kidney stones, minimizing urgency for surgical intervention. An incidental umbilical hernia was observed, but as it is asymptomatic and non- complicating, a conservative approach with careful monitoring was recommended. The importance of maintaining hydration for stone prevention was emphasized. We planned PSA follow-up monitoring in six months, given previous normal results, to ensure ongoing prostate health surveillance and act promptly if necessary. Continue three-month follow-up till 2 years from completion of therapy After 2 years of completion of therapy will continue monitoring PSA every 6 months. Prostate cancer June 2021 PSA 4.5 [facility] 4+4 - initial therapy 18 month GnRH with external beam radiation at [facility] completed December 2021 - Last GnRH 10/18 PSA 03/18 0.1 T 11, 06/18 0.1 T 3, 10/18 0.1 T3, 3/23 0.1 T3, 08/19 PSA <0.1, T<3, 2 PSA <0.1, T 36, 6 PSA <0.1, T 167, 9 PSA <0.1, T 267, 02/19 PSA <0.1, T 450 Initial therapy external beam radiation with 18 months hormone therapy via [facility] 01/[address] Holland June 2021 Initial PSA at diagnosis 4.5 Histologic type: Adenocarcinoma; acinar type Histologic grade:? Kyle score: 4+4=8? % of pattern 4: 100%? % of pattern 5: 0% Grade group: 4 Tumor quantitation:? Number cores positive: 3? Total number of cores: 12? % of tissue involved: 5-10% of all tissue examined - left mid lateral 30%, left apex lateral 30%, left apex medial 20% - Total - 7% Periprostatic fat inv.: Not identified, Seminal vesicle inv.: Not identified, Perineural inv.: Present, LVI: Not identified Staging - 08/17 prostate MRI with 1.7 cm left apical posterior lesion, irregularity of prostate bowel injury suggestive of ISAURA, 1.4 cm pelvic sidewall node noted - 08/17 bone scan no evidence of disease. FOR[facility]LY [facility], [facility] Medical History Gout Arthritis Back pain Sleep apnea Asthma COVID-19 vaccine series completed COVID-19 Failure of attempted procedure BPH (benign prostatic hyperplasia) GERD (gastroesophageal reflux disease) Diabetes Elevated cholesterol Surgical History History of esophagogastroduodenoscopy (EGD) H/O colonoscopy History of total left knee replacement Social History Household Members: Spouse Housing: House Are you a primary care transition manager to a significant other at home: No Do you presently have visiting nurse or other home services: No Patient Tobacco Use Status: Former Tobacco user Tobacco use type: Cigarette Second Hand Smoke Exposure: No Review of Systems Const Reports as per HPI Eyes Reports no additional complaints ENT Reports no additional complaints Card Reports as per HPI Resp Reports as per HPI GI Reports as per HPI Reports as per HPI Neuro Reports no additional complaints Psych Reports no additional complaints Endo Reports as per HPI Physical Exam Const General: cooperative, healthy appearing, comfortable, no acute distress, well developed, alert and awake Orientation/consciousness: patient oriented x3 Limitations: no limitations HEENT Head: Yes normal to inspection, Yes normocephalic and Yes atraumatic Ears: hearing grossly normal bilaterally Eyes General: appearance normal, both eyes and all related structures Neck Neck: Yes normal visual inspection and Yes trachea midline Chest Chest palpation & inspection: normal inspection of the chest Resp Effort & Inspection: normal respiratory effort and able to speak in complete sentences Cardio Rate: regular rate GI Inspection: Yes normal to inspection General: Yes no CVA tenderness Back/Spine/Pelvis Back: no CVA tenderness Skin General skin exam: no rashes or lesions noted Neuro General: patient oriented x3 Extrem General: Yes normal to inspection Psych Appearance: grossly normal and well kempt Mental Status: mental status grossly normal Speech and movement: Normal speech and movement present and Clear speech present Affect: normal affect Attitude: cooperative Thought process: Normal thought process present Thought content: Normal thought content present Insight: Fair insight present (Psych) Judgement: Fair judgement present (Psych) Results AMB Urinalysis, Automated UA Leukoctes 0 Franki/uL Last Edit by Monica Mccurdy on 02/17/25 08:38 UA Nitrite Negative Last Edit by Monica Mccurdy on 02/17/25 08:38 UA Urobilinogen 0.2 mg/dL Last Edit by Monica Mccurdy on 02/17/25 08:38 UA Protein 15 mg/dL Last Edit by Monica Mccurdy on 02/17/25 08:38 UA pH 6.0 Last Edit by Monica Mccurdy on 02/17/25 08:38 UA Blood 0 Bryson/uL Last Edit by Monica Mccurdy on 02/17/25 08:38 UA Specific Harrington 1.015 Last Edit by Monica Mccurdy on 02/17/25 08:38 UA Ketone Negative Last Edit by Monica Mccurdy on 02/17/25 08:38 UA Bilirubin 0 mg/dL Last Edit by Monica Mccurdy on 02/17/25 08:38 UA Glucose 1000 mg/dL Last Edit by Monica Mccurdy on 02/17/25 08:38 Results Reviewed Results Reviewed: Laboratory Last Values Urine pH (Auto) 6.0 02/17/25 08:29 Specific Harrington (Auto) 1.015 02/17/25 08:29 Urine Protein (Auto) 15 mg/dL 02/17/25 08:29 Glucose (UA)(Auto) 1000 mg/dL 02/17/25 08:29 Urine Ketones (Auto) Negative 02/17/25 08:29 Urine Blood (Auto) 0 Bryson/uL 02/17/25 08:29 Urine Nitrite (Auto) Negative 02/17/25 08:29 Urine Bilirubin (Auto) 0 mg/dL 02/17/25 08:29 Urine Urobilinogen (Auto) 0.2 mg/dL 02/17/25 08:29 Leukocyte Esterase (Auto) 0 Franki/uL 02/17/25 08:29 Date of Service: 01/27/25 Procedure(s): CT urogram Findings: No consolidation or effusion. Unremarkable gallbladder and solid organs. No urolithiasis. No bowel obstruction, pneumoperitoneum, or pneumatosis. 22 mm fat containing umbilical hernia. Pelvic contents unremarkable. Normal appendix. No acute fracture. IMPRESSION: No acute findings. Assessment & Plan Assessment & Plan (1) Prostate cancer: Comment: June 2021 high-grade prostate cancer [facility] 8 - EXBRT and hormone therapy Code(s): C61 - Malignant neoplasm of prostate Category: Medical (2) Hydronephrosis: Code(s): N13.30 - Unspecified hydronephrosis Category: Medical (3) Nephrolithiasis: Code(s): N20.0 - Calculus of kidney Category: Medical (4) Erectile dysfunction: Code(s): N52.9 - Male erectile dysfunction, unspecified Category: Medical Plan In office urinalysis results reviewed with the patient today; as noted above. PVR [address] urogram results reviewed with the patient today; as noted above. Recent PSA and testosterone results reviewed with the patient today; as noted above. Will continue with surveillance monitoring of prostate cancer as well as nephrolithiasis Will obtain PSA, testosterone, BUN, and creatinine in 6 months. Will obtain renal ultrasound in 6 months. Continue daily dosing of tadalafil with p.r.n. dosing Discussed, educated, and stressed the importance of continuing with adequate hydration relation to nephrolithiasis as well as overall health and well-being. Patient currently denies any bothersome urinary issues or concerns. He reports be happy with current voiding parameters. Follow-up in 6 months with imaging in labs to be completed prior; or sooner with any issues, concerns, and or questions. Orders: Orders AMB Urinalysis Automated Today Z13.9 - Encounter for screening, unspecified Prostate Specific Antigen 6 Months C61 - Malignant neoplasm of prostate Blood Urea Nitrogen 6 Months R39.15 - Urgency of urination Creatinine 6 Months R39.15 - Urgency of urination AMB Post Void Residual by ultrasound Today R39.15 - Urgency of urination Testosterone, Total 6 Months C61 - Malignant neoplasm of prostate US renal BI 6 Months N20.0 - Calculus of kidney Patient Instructions: The patient had an opportunity to ask questions regarding the treatment plan. All questions were answered. Physical exam, labs, and imaging were discussed and reviewed in detail. As well as risks, benefits, and discussion of treatment choices. No major barriers to understanding were identified. The patient expressed understanding and agreement with the above treatment plan. The patient was made aware they should contact our office by phone for worsening of their current condition, the appearance of new symptoms, or with any questions or concerns. Compliance is encouraged with any medications and follow up testing that is ordered. It is a privilege to be allowed the opportunity to participate in? your urological care.? Again, if you have any questions or concerns If you have any questions or concerns please do not hesitate to contact me. The office is [phone]. This note is constructed using voice recognition software. While every effort has been made to ensure accuracy fisher sponge hooking errors may have been included. Yours sincerely, KAYLENE Gonzalez Coding Level of Care Code Est Pt Level 3 (12354) Complex EM visit Add On G2211 Diagnoses Prostate cancer C61 Hydronephrosis N13.30 Nephrolithiasis N20.0 Erectile dysfunction N52.9
--- OUTSIDE RECORDS SUMMARY | 2025-02-17 08:28 | XMS_ITS | Clinical Summary ---
Author Organization [facility] Address [address] [place] [address] Care Team Providers Care Lead Game Designer Name Role Phone Butch Villafuerte MD Primary Care Provider + [phone] Allergies Active Allergy Reactions Criticality Noted Date [...] age to complete this topic Care Teams Lead Game Designer Relationship Specialty Start Date End Date Butch Villafuerte MD [address] [address] PCP - General Internal Medicine 04/26/22
--- OUTSIDE RECORDS SUMMARY | 2025-02-17 08:28 | XMS_ITS | Data Portability ---
Author Organization [place] [facility] [place] Address [address] [place] [address] Care Team Providers Care Adult Nurse Practitioner Name Role Phone RYAN BROWN Referring Provider [phone] Assessment Encounter Date Assessment Date Assessment LastModified [...] view 2023 024 [email or web address] 2 [facility], [address], [address], [place], [address], 16:42:28 XR, shoulder, 2 or more view 2023 [email or web address] 2 [facility], [address], [address], [place], [address], 16:42:28 Medication Orders meloxicam 15 mg tablet 2023 [id number], [address] [place], [address], 17:49:36 Patient TargetsNo targets recorded. Patient Instructions Encounter Date Encounter Id Patient Instructions Last Modified By Organization Details Last Modified Time 08/13/2024 [id number] 3 views each of the bilateral shoulders were obtained today 08/13/2024 in the [facility] office. Moderate glenohumeral joint space narrowing and degenerative changes of the AC joint bilaterally. Bony demineralization. Acromiohumeral interval is intact. Type II acromion's. No acute fracture dislocation appreciated. ana Not available 08/18/2024 17:46:55 Reason for Referral None Reported. Procedures Surgical History Date Name Laterality Status Provider Name and Address Organization Details Recorded Time decompression of median nerve completed Moraima Chen [place] [facility] 08/13/2024 14:52:04 arthroplasty of knee completed Moraimaakshat Chen [place] [facility] 08/13/2024 14:52:11 Imaging Results None recorded. [...] Updated DateTime 08/13/2024 185.42 cm 30.3 kg/m2 357152.25 g Moraima Chen [place] [facility] 08/13/2024 14:46:40 Social History Question Answer Notes LastModified by Organizat ion Details LastModified Time Tobacco Smoking Status Never Smoker Moraima Chen [facility], [place] - [facility] 08/13/2024 14:47:03 What Is Your Level [...] available 2023 14:51:39 Medical History Condition Response Gout Y Cancer Y Diabetes Y Asthma Y Past Encounters Encounter ID Performer Location Encounter Start Date Encounter Closed Date Diagnosis/Indication Diagnosis SNOMED-CT Code Diagnosis ICD10 Code Diagnosis Note [id number] Homero Ellison MD [address] [address] 08/13/2024 14:07:02 08/13/2024 15:21:02 Pain of right shoulder region 5447947588 M25.511 Pain of le ft shoulder region 4700290404 M25.512 Health Concerns Section Related Observation LastModified by Organization Detai ls LastModified Time None Recorded Concern Status LastModified by Organization Details LastModified Time None Recorded Advance Directives Directive None Recorded Payers Encounter Date Sequence Insurance Name Policy Number Policy Rodriguez Covered Member ID Rodriguez Member ID Guarantor Name 08/13/2024 2 [facility] [id number] 1 Rex Asher Stgermain [id number] Rex RodriguezRachael 08/13/2024 1 MEDICARE B-CT: NGS Rex Asher Rachael [id number] Rex Rachael Notes Date Note Type Note [...] KRISTEL HALLMAN PA-C [address], [place], [address], [place] [facility] 08/18/2024 17:49:49
== END 2025-02-17 09:06 | disposition home or self-care (01) ==
LOC: HO.HUSH 08:15
PROVIDERS: PCP Internal Medicine; Visit Provider Nurse Practitioner Family
DX: C61 Malignant neoplasm of prostate (principal); N13.30 Unspecified hydronephrosis; N20.0 Calculus of kidney; N52.9 Male erectile dysfunction, unspecified; Z13.9 Encounter for screening, unspecified
CPT/HCPCS: 99213; G2211

== ENCOUNTER → 2025-02-17 08:15 | Outpatient (BNVA) | payer MEDICARE, OTHER, SELFPAY | PROVIDERS: PCP Internal Medicine; Visit Provider Nurse Practitioner Family | DX: N40.1 Benign prostatic hyperplasia with lower urinary tract symptoms (principal); C61 Malignant neoplasm of prostate; N20.0 Calculus of kidney; N13.30 Unspecified hydronephrosis; N52.9 Male erectile dysfunction, unspecified; R39.15 Urgency of urination | CPT/HCPCS: 81003; 99212 ==

== ENCOUNTER 2025-08-13 13:16 | Outpatient (REF) | payer MEDICARE, OTHER, SELFPAY ==
--- OUTSIDE RECORDS SUMMARY | 2024-09-08 03:09 | XMS_ITS ---
Author Organization [facility] Address [address], [place] [id number] Care Team Providers Care Cornice Upholsterer Name Role Phone RYAN BROWN Primary Care Provider [phone] Encounters Encounter Location Date Provider Diagnosis [address] [address] 09/08/2024 RYAN BROWN Elevated serum creatinine R79.89 ASSESSMENTS Encounter Date Diagnosis Assessment Notes Treatment Notes Treatment Clinical Notes Section Notes 09/08/2024 Elevated serum creatinine (ICD-10 - R79.89) PLAN OF TREATMENT Next Appt Details Provider Name:RYAN MAURICIO, 12/02/2025 01:45:00 PM, [address] [place] [address], [phone],
--- OUTSIDE RECORDS SUMMARY | 2024-10-06 02:58 | XMS_ITS ---
Author Organization [facility] Address [address] [place], [place] [id number] Care Team Providers Care Poker Machine Attendant Name Role Phone RYAN BROWN Primary Care Provider [phone] REASON FOR VISIT creatine Encounters Encounter Location Date Provider Diagnosis [facility] [address] [place] [address] 10/06/2024 RYAN BROWN PLAN OF TREATMENT Next Appt Details Provider Name:RYAN MAURICIO, 12/02/2025 01:45:00 PM, [address] [place], [phone],
--- OUTSIDE RECORDS SUMMARY | 2025-01-05 07:52 | XMS_ITS ---
Author Organization [facility] Address [address], [place] [id number] Care Team Providers Care Body Artist Name Role Phone RYAN BROWN Primary Care Provider REASON FOR VISIT flovent refill MEDICATIONS Medication SIG (Take, Route, Fr equency, Duration) Notes Start Date End Date Status Flovent HFA 110 MCG/ACT 1 puff Inhalatio n Twice a day for 30 days Active Encounters Encounter Location Date Provider Diagnosis [address] [address] 01/05/2025 RYAN BROWN PLAN OF TREATMENT Medication Medication Name Sig Start Date Stop Date Notes Flovent HFA 110 MCG/ACT 1 puff Inhalatio n Twice a day for 30 days Next Appt Details Provider Name:RYAN MAURICIO, 12/02/2025 01:45:00 PM, [address] [place], [phone],
--- OUTSIDE RECORDS SUMMARY | 2025-01-06 08:11 | XMS_ITS ---
Author Organization [facility] Address [address] [place], [place] [id number] Care Team Providers Care Bead Trimmer Name Role Phone RYAN BROWN Primary Care Provider REASON FOR VISIT flovent refill MEDICATIONS Medication SIG (Take, Route, Frequency, Duration) Notes Start Date End Date Status ProAir HFA 108 (90 Base) MCG/ACT 2 puff(s) inhaled 4 times a day prn for 30 days 02/22/2014 Active Encounters Encounter Location Date Provider Diagnosis [address] [address] 01/06/2025 RYAN BROWN PLAN OF TREATMENT Medication Medication Name Sig Start Date Stop Date Notes ProAir HFA 108 (90 Base) MCG/ACT 2 puff(s) inhaled 4 times a day prn for 30 days 02/22/2014 Next Appt Details Provider Name:RYAN MAURICIO, 12/02/2025 01:45:00 PM, [address] [place] [address], [phone],
--- OUTSIDE RECORDS SUMMARY | 2025-01-13 11:00 | XMS_ITS ---
Author Organization [facility] Address [address] [place], [place] [id number] Care Team Providers Care Laborer/Grade Check Name Role Phone RYAN BROWN Primary Care Provider REASON FOR VISIT patients insurance not covering Flovent HFA 110 MCG/ACT Aerosol Encounters Encounter Location Date Provider Diagnosis [address] [address] 01/13/2025 RYAN BROWN PLAN OF TREATMENT Next Appt Details Provider Name:RYAN MAURICIO, 12/02/2025 01:45:00 PM, [address] [place] [address], [phone],
--- OUTSIDE RECORDS SUMMARY | 2025-01-14 06:10 | XMS_ITS ---
Author Organization [facility] Address [address] [place], [place] [id number] Care Team Providers Care Wicker Molded Candles Name Role Phone RYAN BROWN Primary Care Provider REASON FOR VISIT Arnzuity Ellipta inhaler MEDICATIONS Medication SIG (Take, Route, Frequency, Duration) Notes Start Date End Date Status Arnuity Ellipta 100 MCG/ACT 1 puff Inhalation Once a day for 30 days 01/14/2025 Active Encounters Encounter Location Date Provider Diagnosis [facility] [address] [place] [id number] 01/14/2025 RYAN BROWN PLAN OF TREATMENT Medication Medication Name Sig Start Date Stop Date Notes Arnuity Ellipta 100 MCG/ACT 1 puff Inhal ation Once a day for 30 days 01/14/2025 Next Appt Details Provider Name:RYAN MAURICIO, 12/02/2025 01:45:00 PM, [address] [place], [phone],
--- OUTSIDE RECORDS SUMMARY | 2025-03-03 09:30 | XMS_ITS ---
Author Organization [facility] Address [address] [place] [address], [place] [id number] Care Team Providers Care Crane Hooker Name Role Phone BROWN RYAN Primary Care Provider [phone] ALLERGIES Allergen (clinical drug ingredient) Drug/Non Drug Allergy documented on EMR Reaction Allergy Type Onset Date Status aspirin Aspirin Unknown Drug Allergy Active REASON FOR VISIT 42 6mo F/U MEDICATIONS Medication SIG (Take, Route, Frequency, Duration) Notes Start Date End Date Status Omeprazole 40 MG TAKE 1 CAPSULE BY MO UTH EVERY DAY 30 MINUTES BEFORE MORNING MEAL FOR 90 DAYS for 90 Unknown Arnuity Ellipta 100 MCG/ACT 1 puff Inhalation Once a day for 30 days 01/14/2025 Unknown ProAir HFA 108 (90 Base) MCG/ACT 2 puff(s) inhaled 4 times a day prn for 30 days 02/22/2014 Unknown Fluticasone Propionate HFA 110 MCG/ACT 2 puffs Inhalation Twice a day for 90 days Unknown Flovent HFA 110 MCG/ACT 1 puff Inhalatio n Twice a day for 30 days Unknown Albuterol Sulfate HFA 108 (90 Base) MCG/ACT INHALE 2 PUFFS BY MOUTH FOUR TIMES A DAY NEEDED FOR 90 DAYS for 90 Unknow n Allopurinol 300 MG TAKE 1 TABLET BY LANDON TH EVERY DAY for 90 Unknown Rosuvastatin Calcium 20 MG TAKE 1 TABLET BY MOUTH EVERY DAY for 90 Unknown Jardiance 10 MG TAKE 1 TABLET BY L[facility] TH EVERY DAY FOR 90 DAYS for 30 Unknown Montelukast Sodium 10 MG TAKE 1 TABLET B Y MOUTH EVERY DAY for 90 Unknown Ozempic (0.25 or 0.5 MG/DOSE) 2 MG/3ML as directed Subcutaneous q week for 30 days Unknown metFORMIN HCl ER 500 MG TAKE 1 TABLET BY MOUTH TWICE A DAY for 90 Unknown Ozempic (1 MG/DOSE) 4 MG/3ML as directed Subcutaneous 1mg once a week for 90 days 1mg Unknown Fenofibrate 54 MG TAKE 1 TABLET BY LANDON TH EVERY DAY WITH FOOD FOR 30 DAYS for 90 Unknown Metoprolol Succinate ER 25 MG TAKE 1 TABLET BY MOUTH EVERY DAY for 90 Unknown traMADol HCl 50 MG 1 tablet as needed O rally 3 times daily for 7 days 04/03/2024 Unknown BD Pen Needle Shanelle 2nd Gen 32G X 4 MM USE DIRECTED TWICE A DAY for 30 Unknown Tamsulosin HCl 0.4 MG 1 capsule Orally O nce a day for 90 days Unknown Naproxen 500 MG 1 tablet with food o r milk as needed Orally every 12 hrs for 15 days 11/01/2023 Unknown metFORMIN HCl 500 MG 1 tablet with a urmila l Orally Once a day for 30 day(s) Unknown Semglee 100 UNIT/ML 18 units Subcutaneou s once a day Unknown Encounters Encounter Location Date Provider Diagnosis [facility] [address] [place] [address] 03/03/2025 RYAN BROWN Essential (primary) hypertension I10 ; Disorder of lipoprotein metabolism, unspecified E78.9 ; Type 2 diabetes mellitus without complications E11.9 ; Gout, unspecified M10.9 ; Malignant neoplasm of prostate C61 ; Kidney stone N20.0 and Deficiency of vitamin B E53.9 ASSESSMENTS Encounter Date Diagnosis Assessment Notes Treatment Notes Treatment Clinical Notes Section Notes 03/03/2025 Essential (primary) hypertension (ICD-10 - I10) 03/03/2025 Disorder of lipoprotein metabolism, unspecified (ICD-10 - E78.9) 03/03/2025 Type 2 diabetes mellitus without complications (ICD-10 - E11.9) 03/03/2025 Gout, unspecified (ICD-10 - M10.9) 03/03/2025 Malignant neoplasm of prostate (ICD-10 - C61) 03/03/2025 Kidney stone (ICD-10 - N20.0) 03/03/2025 Deficiency of vitamin B (ICD-10 - E53.9) PLAN OF TREATMENT Future Test Test Name Order Date Hemoglobin [id number] 02/24/2025 Vitamin [id number] 02/24/2025 Folate (Folic Acid), Serum-[id number] 2024 CBC, Platelet, w/o Differential-[id number] 02/24/2025 Lipid Panel-[id number] 02/24/2025 BMP8+[id number] 02/24/2025 Next Appt Details Follow Up: OV 6 months labs pending, Reason: Provider Name:RYAN MAURICIO, 12/02/2025 01:45:00 PM, [address] [place], [address],
--- OUTSIDE RECORDS SUMMARY | 2025-06-17 11:30 | XMS_ITS ---
Author Organization [employer] Address [address], [place] [id number] Care Team Providers Care Horse Breaker Name Role Phone RYAN BROWN Primary Care Provider [phone] ALLERGIES Allergen (clinical drug ingredient) Drug/Non Drug Allergy documented on EMR Reaction Allergy Type Onset Date Status aspirin Aspirin Unknown Drug Allergy Active REASON FOR VISIT F/U MEDICATIONS Medication SIG (Take, Route, Frequency, Duration) Notes Start Date End Date Status Fluticasone Propionate HFA 110 MCG/ACT 2 puffs Inhalation Twice a day for 90 days Active ProAir HFA 108 (90 Base) MCG/ACT 2 puff(s) inhaled 4 times a day prn for 30 days 02/22/2014 Active Flovent HFA 110 MCG/ACT 1 puff Inhalatio n Twice a day for 30 days Active Omeprazole 40 MG TAKE 1 CAPSULE BY MO UT EVERY DAY 30 MINUTES BEFORE MORNING MEAL FOR 90 DAYS for 90 Active Arnuity Ellipta 100 MCG/ACT 1 puff Inhalation Once a day for 30 days 01/14/2025 Active Rosuvastatin Calcium 20 MG TAKE 1 TABLET BY MOUTH EVERY DAY for 90 Active Allopurinol 300 MG TAKE 1 TABLET BY LANDON TH EVERY DAY for 90 Active Albuterol Sulfate HFA 108 (90 Base) MCG/ACT INHALE 2 PUFFS BY MOUTH FOUR TIMES A DAY NEEDED FOR 90 DAYS for 90 Active Montelukast Sodium 10 MG TAKE 1 TABLET B Y MOUTH EVERY DAY for 90 Active Jardiance 10 MG TAKE 1 TABLET BY LANDON TH EVERY DAY FOR 90 DAYS for 30 Active Ozempic (1 MG/DOSE) 4 MG/3ML as directed Subcutaneous 1mg once a week for 90 days 1mg Acti ve Metoprolol Succinate ER 25 MG TAKE 1 TABLET BY MOUTH EVERY DAY for 90 Active Fenofibrate 54 MG TAKE 1 TABLET BY LANDON TH EVERY DAY WITH FOOD FOR 30 DAYS for 90 Active Naproxen 500 MG 1 tablet with food o r milk as needed Orally every 12 hrs for 15 days 11/01/2023 Active Tamsulosin HCl 0.4 MG 1 capsule Orally O nce a day for 90 days Active BD Pen Needle Shanelle 2nd Gen 32G X 4 MM USE DIRECTED TWICE A DAY for 30 Active traMADol HCl 50 MG 1 tablet as needed O rally 3 times daily for 7 days 04/03/2024 Active metFORMIN HCl 500 MG 1 tablet with a urmila l Orally Once a day for 30 day(s) Active Basaglar KwikPen 100 UNIT/ML INJECT 18 UNITS SUBCUTANEOUSLY EVERY DAY SUBCUTANEOUS ONCE A DAY for 90 Active Semglee 100 UNIT/ML 18 units Subcutaneou s once a day Active SOCIAL HISTORY Tobacco Use: Social History Observation Description Date Details (start date - stop date) Former Smoker NA - NA Sex Assigned At : Social History Observation Description Sex Assigned At Unknown Smoking Question Answer Notes Are you a: former smoker How long has it been since you last smoked? > 10 years Section Notes: pt never smoke VITAL SIGNS Height 72 in 06/17/2025 Weight 226 lbs 06/17/2025 Blood pressure systolic 122 mm Hg 06/17/20 25 Blood pressure diastolic 78 mm Hg 025 BMI 30.65 kg/m2 06/17/2025 Encounters Encounter Location Date Provider Diagnosis [facility] [address] [place] [address] 06/17/2025 RYAN BROWN Essential (primary) hypertension I10 ; Disorder of lipoprotein metabolism, unspecified E78.9 ; Type 2 diabetes mellitus without complications E11.9 ; Gout, unspecified M10.9 ; Malignant neoplasm of prostate C61 and Kidney stone N20.0 ASSESSMENTS Encounter Date Diagnosis Assessment Notes Treatment Notes Treatment Clinical Notes Section Notes 06/17/2025 Essential (primary) hypertension (ICD-10 - I10) Blood pressure stable well-controlled we will check a UA and a UA albumin creatinine ratio. With history of diabetes if positive we will add an ROSCOE inhibitor if not finding his blood pressure is adequately controlled 06/17/2025 Disorder of lipoprotein metabolism, unspecified (ICD-10 - E78.9) Continue statin therapy check lipid profile check LFTs LDL goal less than 70 optimally 06/17/2025 Type 2 diabetes mellitus without complications (ICD-10 - E11.9) Continue insulin as ordered metformin Ozempic and Jardiance check A1c goal less than 7.5 ophthalmology q. year baby aspirin statin. 06/17/2025 Gout, unspecified (ICD-10 - M10.9) Check uric acid level 06/17/2025 Malignant neoplasm of prostate (ICD-10 - C61) Stable follow-up q. year with Dr. Foster 06/17/2025 Kidney stone (ICD-10 - N20.0) No symptoms at all check UA keep hydrated drinking 2 L of water a day PLAN OF TREATMENT Treatment Notes Assessment Notes Essential (primary) hypertension Blood p ressure stable well-controlled we will check a UA and a UA albumin creatinine ratio. With history of diabetes if positive we will add an ROSCOE inhibitor if not finding his blood pressure is adequately controlled Disorder of lipoprotein meta bolism, unspecified Continue statin therapy check lipid profile check LFTs LDL goal less than 70 optimally Type 2 diabetes mellitus wit hout complications Continue insulin as ordered metformin Ozempic and Jardiance check A1c goal less than 7.5 ophthalmology q. year baby aspirin statin. Gout, unspecified Check uric acid leve l Malignant neoplasm of prostate Stable fo llow-up q. year with Dr. Foster Kidney stone No symptoms at all c heck UA keep hydrated drinking 2 L of water a day Pending Test Test Name Order Date EKG 06/17/2025 Next Appt Details Follow Up: Follow-up 6 month s labs pending EKG today, Reason: Provider Name:RYAN MAURICIO, 12/02/2025 01:45:00 PM, [address] [place], [address], Progress Notes * Examination Category Sub-Category Detail Notes Category Not es General Examination HEENT: Conjunctiva pink anicteric mucous membranes moist oropharynx clear TMs clear sinus clear EACs clear fundi negative Pleasant white male appearing stated age no apparent distress Neck: no lymphadenopathy, supple, no thyromegaly, no mass, no carotid bruit Heart: RRR, no murmurs, cli cks or rubs Lungs: clear to auscultatio n Abdomen: soft, non tender/non distended, no rebound tenderness, no guarding or rigidity, no masses palpated, no hepatosplenomegaly, normal active bowel sounds Extremities: no edema, pulses 2 p aniket bilaterally General Appearance Pleasant white male appearing stated age no apparent distress Skin: normal, no rash, breana ign appearing moles Neuro alert and oriented x 3, alert and oriented x3, motor 5/5 bilaterally proximally and distally in all 4 extremities, no focal abnormality, lower extremity normal monofilament vibration and position Musculoskeletal Left total knee repl acement full range of motion of all major joints History and Physical Notes * HPI (History of Present Illness) Category Sub-Category Detail Notes Category Not es General Follow-up diabe [place]. See review of systems below
--- OUTSIDE RECORDS SUMMARY | 2025-07-16 04:53 | XMS_ITS ---
Author Organization [facility] Address [address], [place] [id number] Care Team Providers Care Tree Inspector Name Role Phone RYAN BROWN Primary Care Provider [phone] REASON FOR VISIT Dizziness Encounters Encounter Location Date Provider Diagnosis [facility] [address] [place] [address] 07/16/2025 RYAN BROWN PLAN OF TREATMENT Next Appt Details Provider Name:RYAN MAURICIO, 12/02/2025 01:45:00 PM, [address] [place], [address],
--- OUTSIDE RECORDS SUMMARY | 2025-07-20 11:00 | XMS_ITS ---
Author Organization [employer] Address [address] [place], [place] [id number] Care Team Providers Care Sugar Grinder Name Role Phone RYAN BROWN Primary Care Provider ADIS ROMO Unavailable [phone] ALLERGIES Allergen (clinical drug ingredient) Drug/Non Drug Allergy documented on EMR Reaction Allergy Type Onset Date Status aspirin Aspirin Unknown Drug Allergy Active REASON FOR VISIT Dizziness, pt wants to talk about flu vaccine before receiving it MEDICATIONS Medication SIG (Take, Route, Frequency, Duration) Notes Start Date End Date Status Flovent HFA 110 MCG/ACT 1 puff Inhalatio n Twice a day for 30 days Active Omeprazole 40 MG TAKE 1 CAPSULE BY MO UTH EVERY DAY 30 MINUTES BEFORE MORNING MEAL FOR 90 DAYS for 90 Active ProAir HFA 108 (90 Base) MCG/ACT 2 puff(s) inhaled 4 times a day prn for 30 days 02/22/2014 Active Arnuity Ellipta 100 MCG/ACT 1 puff Inhalation Once a day for 30 days 01/14/2025 Active Albuterol Sulfate HFA 108 (90 Base) MCG/ACT INHALE 2 PUFFS BY MOUTH FOUR TIMES A DAY NEEDED FOR 90 DAYS for 90 Active Rosuvastatin Calcium 20 MG TAKE 1 TABLET BY MOUTH EVERY DAY for 90 Active Jardiance 10 MG TAKE 1 TABLET BY LANDON TH EVERY DAY FOR 90 DAYS for 30 Active Allopurinol 300 MG TAKE 1 TABLET BY LANDON TH EVERY DAY for 90 Active Montelukast Sodium 10 MG TAKE 1 TABLET B Y MOUTH EVERY DAY for 90 Active traMADol HCl 50 MG 1 tablet as needed O rally 3 times daily for 7 days 04/03/2024 Active Ozempic (1 MG/DOSE) 4 MG/3ML as directed Subcutaneous 1mg once a week for 90 days 1mg Acti ve Metoprolol Succinate ER 25 MG TAKE 1 TABLET BY MOUTH EVERY DAY for 90 Active Fenofibrate 54 MG TAKE 1 TABLET BY LANDON TH EVERY DAY WITH FOOD FOR 30 DAYS for 90 Active BD Pen Needle Shanelle 2nd Gen 32G X 4 MM USE DIRECTED TWICE A DAY for 30 Active Tamsulosin HCl 0.4 MG 1 capsule Orally O nce a day for 90 days Active metFORMIN HCl 500 MG 1 tablet with a urmila l Orally Once a day for 30 day(s) Active Naproxen 500 MG 1 tablet with food o r milk as needed Orally every 12 hrs for 15 days 11/01/2023 Active Basaglar KwikPen 100 UNIT/ML INJECT 18 UNITS SUBCUTANEOUSLY EVERY DAY SUBCUTANEOUS ONCE A DAY for 90 Active Meclizine HCl 25 MG 1 tablet as needed O rally q8hr prn 07/20/2025 Active SOCIAL HISTORY Tobacco Use: Social History Observation Description Date Details (start date - stop date) Never Smoker NA - NA Sex Assigned At : Social History Observation Description Sex Assigned At Unknown Smoking Question Answer Notes Are you a: never smoker Section Notes: pt never smoke VITAL SIGNS Height 72 in 07/20/2025 Weight 229 lbs 07/20/2025 Blood pressure systolic 127 mm Hg 07/20/20 25 Blood pressure diastolic 79 mm Hg 025 BMI 31.05 kg/m2 07/20/2025 Encounters Encounter Location Date Provider Diagnosis [facility] [address] [place] [address] 07/20/2025 ADIS ROMO Vertigo R42 ASSESSMENTS Encounter Date Diagnosis Assessment Notes Treatment Notes Treatment Clinical Notes Section Notes 07/20/2025 Vertigo (ICD-10 - R42) Exercises given. Plenty of liquids. Patient just had lab work done which was all normal including CBC, thyroid and liver testing. If no improvement in 10 to 14 days we will need to consider further evaluation including imaging. Meclizine 25 mg 1 tablet every 8 hours if needed for dizziness but can start just at bedtime. Vertigo: Care Instructions, Vertigo: Exercises, Robert [facility] at Home for Vertigo: Exercises material was printed PLAN OF TREATMENT Medication Medication Name Sig Start Date Stop Date Notes Meclizine HCl 25 MG 1 tablet as needed Orally q8hr prn Treatment Notes Assessment Notes Vertigo Exercises given. Ple nty of liquids. Patient just had lab work done which was all normal including CBC, thyroid and liver testing. If no improvement in 10 to 14 days we will need to consider further evaluation including imaging. Meclizine 25 mg 1 tablet every 8 hours if needed for dizziness but can start just at bedtime. Vertigo: Care Instructions, Vertigo: Exercises, Robert Maneuver at Home for Vertigo: Exercises material was printed Next Appt Details Follow Up: Exercises given. Meclizine as prescribed. Follow-up if no improvement in 10 to 14 days, sooner if worsening., Reason: Provider Name:RYAN MAURICIO, 12/02/2025 01:45:00 PM, [address] [place] [address], [phone], Progress Notes * Examination Category Sub-Category Detail Notes Category Not es General Examination HEENT: NC/AT, EOMI, PERRL, and TM's WNL, fundoscopic exam normal, no nystagmus Neck: supple, no lymphaden opathy, no thyromegaly, no carotid bruit, JVP flat Heart: RRR, no murmurs, cli cks or rubs, normal S1S2 Lungs: clear to auscultatio n Abdomen: soft, non tender/non distended Extremities: normal ROM, no clubb ing , cyanosis, or edema General Appearance no apparent distress , pleasant, obese Skin: normal, no rash Neuro alert and oriented x 3, CN 2-12 intact, motor 5/5 bilaterally proximally and distally in all 4 extremities, DTRs 1-2+ in all 4 exremities, sensation light touch intact, Rhomberg negative, tiptoes for 5 seconds, normal heel walking, normal heel-to-toe walking, normal [id number]. Positive Hallpike maneuver, with vertigo clearing after 30 seconds. History and Physical Notes * HPI (History of Present Illness) Category Sub-Category Detail Notes Category Not es General Patient of Dr. Brown's seen today with complaint of dizziness over the last 3 or 4 days. Patient's had called the other day asking for an appointment. Patient notes he gets a spinning dizziness when he lies flat and then turns his head. Has had this when he is lying in bed or when he was working underneath a car. If he tries to raise his head up while still lying down it gets worse. He will also note symptoms with rapid position changes. Symptoms usually resolve in 20 to 60 seconds. No associated nausea or vomiting. No headaches. No loss of balance. No one-sided weakness or numbness or tingling. No slurred speech. No falls. No recent head injuries or trauma. No remote head trauma. No recent illness. Has not done anything for his symptoms. Patient is a diabetic and blood sugar this morning was 138. He continues with Basaglar 18 units daily, metformin 500 mg daily, Ozempic 1 mg weekly and Jardiance 10 mg daily. He is on rosuvastatin 20 mg daily and fenofibrate 54 mg daily for hyperlipidemia and hypertriglyceridemia. On omeprazole 40 mg daily for reflux. On metoprolol ER 25 mg daily for blood pressure. He takes montelukast 10 mg daily, Flovent 110 mcg 1 puff twice a day, Arnuity elliptica 100 mcg 1 puff once a day and ProAir rescue inhaler as needed for asthma. No recent exacerbations of his asthma.
--- NOTE | ~2025-08-13 | US_ITS ---
EXAMINATION: US RETROPERITONEAL LIMITED (RENAL ONLY) CLINICAL INFORMATION: Calculus of kidney. COMPARISON: 10/08/2024. Correlation made with CT abdomen pelvis 01/27/2025. TECHNIQUE: Real-time imaging of the kidneys. FINDINGS: RIGHT KIDNEY: 12.0 x 7.0 x 5.8 cm (SAG x AP x TRV). The kidney is normal in size, contour, and echogenicity. Renal cortical thickness is normal. No calculi or focal parenchymal lesions. No hydronephrosis. LEFT KIDNEY: 11.7 x 6.7 x 5.9 cm (SAG x AP x TRV). The kidney is normal in size, contour, and echogenicity. Renal cortical thickness is normal. No calculi or focal parenchymal lesions. No hydronephrosis. US/US renal BI IMPRESSION: Normal renal ultrasound. Electronically signed by: Luis Gibson MD 08/13/2025 03:27 PM EDT
--- OUTSIDE RECORDS SUMMARY | 2025-08-13 15:58 | XMS_ITS | Data Portability ---
Author Organization [place] [facility] Address [address] [place] [address] Care Team Providers Care Watch Guard Gate Name Role Phone RYAN BROWN Referring Provider Assessment Encounter Date Assessment Date Assessment LastModified [...] view 2023 024 [email or web address] 2 [facility], [address], [address], [place], [address], 16:42:28 XR, shoulder, 2 or more view 2023 024 jena 2 [facility], [address], [facility] [address], [place], [address], 16:42:28 Medication Orders meloxicam 15 mg tablet 2023 024 [id number], [address] [place], [address], 17:49:36 Patient TargetsNo targets recorded. Patient Instructions Encounter Date Encounter Id Patient Instructions Last Modified By Organization Details Last Modified Time 08/13/2024 [id number] 3 views each of the bilateral shoulders were obtained today 08/13/2024 in the [place] office. Moderate glenohumeral joint space narrowing and degenerative changes of the AC joint bilaterally. Bony demineralization. Acromiohumeral interval is intact. Type II acromion's. No acute fracture dislocation appreciated. ana Not available 08/18/2024 17:46:55 Reason for Referral None Reported. Procedures Surgical History Date Name Laterality Status Provider Name and Address Organization Details Recorded Time decompression of median nerve completed Moraimaakshat Chen [place] - [facility] 08/13/2024 14:52:04 arthroplasty of knee completed Moraimaakshat Chen [place] - [facility] 08/13/2024 14:52:11 Imaging Results None recorded. [...] Updated DateTime 08/13/2024 185.42 cm 30.3 kg/m2 966326.25 g Moraima Gustavo [place] - [facility] 08/13/2024 14:46:40 Social History Question Answer Notes LastModified by [employer] Details LastModified Time Tobacco Smoking Status Never Smoker Moraima Luziggy ro, [place] - [facility] 08/13/2024 14:47:03 Are You Blind Or Do You Have Difficulty Seeing? No Information not available 08/13/2024 Are You Deaf Or Do You Have Serious Difficulty Hearing? No Information not available 08/13/2024 Are You Currently In School? No Information not available 08/13/2024 Sex: Unknown Functional Status Question Answer Note LastModified by Organizat ion Details LastModified Time Do you use any illicit or recreational drugs? No Information not available 08/13/2024 Do you or have you ever used any other forms of tobacco or nicotine? No Information not available 08/13/2024 What is your level of alcohol consumption? None Information not available 08/13/2024 Are you currently employed? No Information not available 08/13/2024 Are you able to care for yourself independently? Yes Information not available 08/13/2024 Mental Status None recorded. Family [...] Diagnosis SNOMED-CT Code Diagnosis ICD10 Code Diagnosis IMO Codes Diagnosis Note [id number] KRISTEL HALLMAN PA-C [address] [address] 08/13/2024 14:07:02 08/13/2024 15:21:02 Pain of right shoulder region 4544140719 M25.511 [id number] Pain of le ft shoulder region 8829650122 M25.512 [id number] Health Concerns Section Related Observation LastModified by Organization Detai ls LastModified Time None Recorded Concern Status LastModified by Organization Details LastModified Time None Recorded Advance Directives Directive None Recorded Payers Insurance Date Sequence Insurance Name Policy Number Policy Rodriguez Covered Member ID Rodriguez Member ID Guarantor Name 08/12/2024 1 MEDICARE B-CT: NGS Rex Cano [id number] Rex Cano 08/20/2024 2 [place] [id number] 1 Rex Asher [facility] [id number] Rex Cano Notes Date Note Type Note Provider Name and Address Organization Details Recorded Time 08/13/2024 text/html ROS as noted in the HPI Pleasant 68-year-old male presents to the office [...] KRISTEL HALLMAN PA-C [address], [place], [address], [place] - [facility] 08/18/2024 17:49:49
--- OUTSIDE RECORDS SUMMARY | 2025-08-13 15:59 | XMS_ITS ---
Author Name [facility] Organization Unknown History of Medication Use Medication Directions Dispensed Refills Start Date End Date Stat us meloxicam 15 mg tablet Take 1 tablet every day by oral route. 08/18/2024 active albuterol sulfate HFA 90 mcg/actuation aerosol inhaler INHALE 2 PUFFS BY MOUTH FOUR TIMES A DAY NEEDED FOR 90 DAYS active allopurinol 300 mg tablet TAKE 1 TABLET BY MOUTH EVERY DAY active amoxicillin 500 mg tablet TAKE 1 TABLET BY MOUTH THREE TIMES A DAY FOR 7 DAYS active Basaglar KwikPen U-100 Insulin 100 unit/mL (3 mL) subcutaneous INJECT 18 UNITS SUBCUTANEOUSLY EVERY DAY SUBCUTANEOUS ONCE A DAY active BD Shanelle 2nd Gen Pen Needle 32 gauge x 5/32 USE DIRECTED TWICE A DAY 30 active Cipro HC 0.2 %-1 % ear drops,suspension PUT 3 DROPS IN AFFECTED EAR TWICE A DAY FOR 7 DAYS active diazepam 5 mg tablet TAKE 1 TABLET BY MOUTH ONCE TAKE PRIOR TO PROCEDURE active fenofibrate 54 mg tablet TAKE 1 TABLET BY MOUTH EVERY DAY WITH FOOD FOR 30 DAYS active folic acid 1 mg tablet TAKE 1 TABLET BY MOUTH EVERY DAY active Gavilax 17 gram/dose oral powder TAKE 17 G BY MOUTH DAILY FOR 360 DAYS. MIX IN 12 OUNCES OF A CLEAR LIQUID. active ibuprofen 600 mg tablet TAKE 1 TABLET 3 TIMES A DAY NEEDED active Jardiance 10 mg tablet TAKE 1 TABLET BY MOUTH EVERY DAY FOR 90 DAYS active lorazepam 1 mg tablet TAKE 1 TABLET BY MOUTH EVERY 6 HOURS NEEDED (ANAL SPASM) FOR UP TO 7 DAYS. active metformin ER 500 mg tablet,extended release 24 hr TAKE 1 TABLET BY MOUTH TWICE A DAY active metoprolol succinate ER 25 mg tablet,extended release 24 hr TAKE 1 TABLET BY MOUTH EVERY DAY active montelukast 10 mg tablet TAKE 1 TABLET BY MOUTH EVERY DAY active naproxen 500 mg tablet TAKE 1 TABLET BY MOUTH EVERY 12 HOURS WITH FOOD OR MILK NEEDED FOR 15 DAYS active omeprazole 40 mg capsule,delayed release TAKE 1 CAPSULE BY MOUTH EVERY DAY 30 MINUTES BEFORE MORNING MEAL FOR 90 DAYS active oxybutynin chloride 5 mg tablet TAKE 1 TABLET BY MOUTH AT BEDTIME FOR BLADDER SPASM active oxycodone 5 mg tablet TAKE 1 TABLET BY MOUTH EVERY 6 HOURS NEEDED FOR PAIN active oxycodone-acetamino phen 5 mg-325 mg tablet TAKE 1 TABLET BY MOUTH EVERY 6 TO 8 HOURS NEEDED FOR PAIN active Ozempic 0.25 mg or 0.5 mg (2 mg/3 mL) subcutaneous pen injector 0.5 SUBCUTANEOUS ONCE WEEKLY E11.9 30 DAYS active Rectiv 0.4 % (w/w) ointment APPLY TO AFFECTED AREA TWICE A DAY active rosuvastatin 20 mg tablet TAKE 1 TABLET BY MOUTH EVERY DAY active tadalafil 10 mg tablet TAKE 1.5 TABS DAILY NEEDED 1 HR PRIOR TO SEXUAL ACTIVITY, NO MORE THAN 2-3 TIMES A WEEK active tadalafil 5 mg tablet TAKE 1 TABLET BY MOUTH EVERY DAY active tamsulosin 0.4 mg capsule TAKE 1 TABLET BY MOUTH DAIY AT BEDTIME active tramadol 50 mg tablet TAKE 1 TABLET BY MOUTH NEEDED 3 TIMES DAILY X7 DAYS active Encounters Encounter Type Encounter Reason Primary Diagnosis Location Date Ambulatory [facility] 08/20/2024 Ambulatory [facility] 08/13/2024 [facility] 08/13/2024 Ambulatory [facility] 08/13/2024 Ambulatory [facility] 08/12/2024 Ambulatory [facility] 07/20/2024 Ambulatory [facility] 07/20/2024
--- OUTSIDE RECORDS SUMMARY | 2025-08-13 15:59 | XMS_ITS | Clinical Summary ---
Author Organization [facility] Address [address] [place] [address] Care Team Providers Care Rand Butting Machine Operator Name Role Phone Butch Villafuerte MD Primary Care Provider + [phone] Allergies Active Allergy Reactions Criticality Noted Date [...] 77 04/26/2022 1:11 PM EDT Temperature 36.1 C (97 F) 04/26/2022 1:11 PM EDT Respiratory Rate - [...] Fall Risk Assessment 2021 Influenza Vaccine (#1) 2025 RSV Adult > 60+ Yrs or Pregn ant (1 - 1-dose 75+ series) 2031 Hepatitis B Vaccines Aged Out No long er eligible based on patient's age to complete this topic RSV Ped < 20 months Aged Out No longe r eligible based on patient's age to complete this topic Care Teams Rand Butting Machine Operator Relationship Specialty Start Date End Date Butch Villafuerte MD [address] [address] PCP - General Internal Medicine 04/26/22
--- OUTSIDE RECORDS SUMMARY | 2025-08-13 15:59 | XMS_ITS | Patient Health Record ---
Author Organization [facility] Address [address], [place] [id number] Care Team Providers Care Mop Maker Name Role Phone KEVIN RYAN Primary Care Provider [phone] [address] [phone] ALLERGIES Allergen (clinical drug ingredient) Drug/Non Drug Allergy documented on EMR Reaction Allergy Type Onset Date Status aspirin Aspirin Unknown Drug Allergy Active REASON FOR REFERRAL No Information MEDICATIONS Medication SIG (Take, Route, Frequency, Duration) Notes Start Date End Date Status Tamsulosin HCl 0.4 MG 1 capsule Orally O nce a day for 90 days Active Albuterol Sulfate HFA 108 (90 Base) MCG/ACT INHALE 2 PUFFS BY MOUTH FOUR TIMES A DAY NEEDED FOR 90 DAYS for 90 Active metFORMIN HCl 500 MG 1 tablet with a urmila l Orally Once a day for 30 day(s) Active Rosuvastatin Calcium 20 MG TAKE 1 TABLET BY MOUTH EVERY DAY for 90 Active traMADol HCl 50 MG 1 tablet as needed O rally 3 times daily for 7 days 04/03/2024 Active Flovent HFA 110 MCG/ACT 1 puff Inhalatio n Twice a day for 30 days Active Naproxen 500 MG 1 tablet with food o r milk as needed Orally every 12 hrs for 15 days 11/01/2023 Active Omeprazole 40 MG TAKE 1 CAPSULE BY MO UTH EVERY DAY 30 MINUTES BEFORE MORNING MEAL FOR 90 DAYS for 90 Active Jardiance 10 MG TAKE 1 TABLET BY LANDON TH EVERY DAY FOR 90 DAYS for 30 Active Meclizine HCl 25 MG 1 tablet as needed O rally q8hr prn 07/20/2025 Active Ozempic (1 MG/DOSE) 4 MG/3ML as directed Subcutaneous 1mg once a week for 90 days 1mg Acti ve Allopurinol 300 MG TAKE 1 TABLET BY LANDON TH EVERY DAY for 90 Active Basaglar KwikPen 100 UNIT/ML INJECT 18 UNITS SUBCUTANEOUSLY EVERY DAY SUBCUTANEOUS ONCE A DAY for 90 Active Montelukast Sodium 10 MG TAKE 1 TABLET B Y MOUTH EVERY DAY for 90 Active BD Pen Needle Shanelle 2nd Gen 32G X 4 MM USE DIRECTED TWICE A DAY for 30 Active Fenofibrate 54 MG TAKE 1 TABLET BY LANDON TH EVERY DAY WITH FOOD for 90 Activ e ProAir HFA 108 (90 Base) MCG/ACT 2 puff(s) inhaled 4 times a day prn for 30 days 02/22/2014 Active Metoprolol Succinate ER 25 MG TAKE 1 TABLET BY MOUTH EVERY DAY for 90 Active Arnuity Ellipta 100 MCG/ACT 1 puff Inhalation Once a day for 30 days 01/14/2025 Active IMMUNIZATIONS Vaccine Route Administration Date Status Comme nts Influenza, Fluzone HD 65+ IM Intramuscular 07/24/2023 Pend ing Influenza, Fluzone HD 65+ IM Intramuscular 08/07/2023 Admi nistered Influenza Unknown 08/09/2008 Administered Influenza Unknown 11/05/2011 Administered FLU- FLUVIRIN, PRE-FILLED SYRINGE 0.5 ml Unknown 02/02/2013 Administered SOCIAL HISTORY Tobacco Use: Social History Observation Description Date Details (start date - stop date) Never Smoker NA - NA Sex Assigned At : Social History Observation Description Sex Assigned At Unknown Smoking Question Answer Notes Are you a: never smoker Section Notes: pt never smoke pt never smoke pt never smoke pt never smoke pt never smoke pt never smoke pt never smoke PROBLEMS Problem Type ICD Code Onset Dates Problem Status W/U Status Risk SNOMED Code Notes Problem EXTRINSIC ASTHMA NOS (493.00) Active confirmed Extrinsic asthma without status asthmaticus (92528594) Problem Essential (primary) hypertension (I10) Active confirmed Essential hypertension (09412231) Problem Type 2 diabetes mellitus without complications (E11.9) Active confirmed Type II diabetes mellitus without complication (053316218) Problem Disorder of lipoprotein metabolism, unspecified (E78.9) Active confirmed Disorder of lipoprotein storage and metabolism (disorder) (181002332) Problem Gout, unspecified (M10.9) Active confirmed Gout (86782860) Problem Malignant neoplasm of prostate (C61) Active confirmed Malignant neoplasm of prostate (504088352) Problem Kidney stone (N20.0) Active confirmed 09558166 VITAL SIGNS Blood pressure diastolic 79 mm Hg 07/20/2025 Height 72 in 07/20/2025 Blood pressure systolic 127 mm Hg 07/20/2025 Weight 229 lbs 07/20/2025 BMI 31.05 kg/m2 07/20/2025 Encounters Encounter Location Date Provider Diagnosis [place] [phone] 09/03/2024 RYAN BROWN [place] [id number] 09/07/2024 RYAN BROWN Essential (primary) hypertension I10 ; Disorder of lipoprotein metabolism, unspecified E78.9 ; Type 2 diabetes mellitus without complications E11.9 ; Gout, unspecified M10.9 and Malignant neoplasm of prostate C61 [place] [id number] 09/07/2024 RYAN BROWN [place] [id number] 09/08/2024 RYAN BROWN Type 2 diabetes mellitus without complications E11.[address] [phone] 09/08/2024 RYAN BROWN Elevated serum creatinine R79.[address] [address] 10/06/2024 RYAN BROWN [address] [id number] 01/05/2025 RYAN BROWN [address] [id number] 01/06/2025 RYAN BROWN [address] [address] 01/13/2025 RYAN BROWN [address] [address] 01/14/2025 RYAN BROWN [address] [address] 03/03/2025 RYAN BROWN Essential (primary) hypertension I10 ; Disorder of lipoprotein metabolism, unspecified E78.9 ; Type 2 diabetes mellitus without complications E11.9 ; Gout, unspecified M10.9 ; Malignant neoplasm of prostate C61 ; Kidney stone N20.0 and Deficiency of vitamin B E53.[address] [address] 06/17/2025 RYAN BROWN Essential (primary) hypertension I10 ; Disorder of lipoprotein metabolism, unspecified E78.9 ; Type 2 diabetes mellitus without complications E11.9 ; Gout, unspecified M10.9 ; Malignant neoplasm of prostate C61 and Kidney stone N20.[address] [address] 07/16/2025 RYAN BROWN [address] [address] 07/20/2025 ADIS ROMO Vertigo R42 ASSESSMENTS Encounter Date Diagnosis Assessment Notes Treatment Notes Treatment Clinical Notes Section Notes 09/07/2024 Essential (primary) hypertension (ICD-10 - I10) Blood pressure recheck is borderline. Patient does check his blood pressure at home and it is consistently less than 130/80 therefore recommend patient continue checking daily over the next few weeks and to call me if readings are greater than 130/80. Continued weight loss recommended no added salt diet. Check EKG check labs hemogram ratio 09/07/2024 Disorder of lipoprotein metabolism, unspecified (ICD-10 - E78.9) Continue fenofibrate and statin check LFTs check lipid profile follow-up in 6 months 03/03/2025 Essential (primary) hypertension (ICD-10 - I10) 03/03/2025 Disorder of lipoprotein metabolism, unspecified (ICD-10 - E78.9) 09/08/2024 Type 2 diabetes mellitus without complications (ICD-10 - E11.9) 09/08/2024 Elevated serum creatinine (ICD-10 - R79.89) 06/17/2025 Essential (primary) hypertension (ICD-10 - I10) [...] LFTs LDL goal less than 70 optimally 07/20/2025 Vertigo (ICD-10 - R42) Exercises given. [...] Home for Vertigo: Exercises material was printed 06/17/2025 Type 2 diabetes mellitus without complications (ICD-10 - E11.9) Continue insulin as ordered metformin Ozempic and Jardiance check A1c goal less than 7.5 ophthalmology q. year baby aspirin statin. 03/03/2025 Type 2 diabetes mellitus without complications (ICD-10 - E11.9) 09/07/2024 Type 2 diabetes mellitus without complications (ICD-10 - E11.9) Continue Jardiance Semglee metformin Ozempic. Check A1c goal less than 7.5. Check UA albumin creatinine ratio ophthalmology q. year 09/07/2024 Gout, unspecified (ICD-10 - M10.9) Stable no symptoms uric acid goal less than 6.0 continue allopurinol 03/03/2025 Gout, unspecified (ICD-10 - M10.9) 06/17/2025 Gout, unspecified (ICD-10 - M10.9) Check uric acid level 09/07/2024 Malignant neoplasm of prostate (ICD-10 - C61) Follow-up Dr. Foster doing well 03/03/2025 Malignant neoplasm of prostate (ICD-10 - C61) 06/17/2025 Malignant neoplasm of prostate (ICD-10 - C61) Stable follow-up q. year with Dr. Foster 03/03/2025 Kidney stone (ICD-10 - N20.0) 06/17/2025 Kidney stone (ICD-10 - N20.0) No symptoms at all check UA keep hydrated drinking 2 L of water a day 03/03/2025 Deficiency of vitamin B (ICD-10 - E53.9) PLAN OF TREATMENT Pending Test Test Name Order Date EKG 06/17/2025 Future Test Test Name Order Date PFT : Spirometry with Bronchodilator, Kitty ng volume, DLCO 02/22/2014 LIPID PANEL 08/07/2023 AST (SGOT)-[id number] 02/04/2024 ALT (SGPT)-[id number] 02/04/2024 CBC, Platelet, w/o Differential-[id number] 0 02/04/2024 Lipid Panel-[id number] 02/04/2024 Methylmalonic Acid, Serum-125335 024 Homocyst(e)ine-682341 02/04/2024 BMP8+eGFR-314465 02/04/2024 Hemoglobin F8r-158335 02/24/2025 Vitamin R64-441355 02/24/2025 Folate (Folic Acid), Serum-895797 2024 CBC, Platelet, w/o Differential-[id number] 0 02/24/2025 Lipid Panel-[id number] 02/24/2025 BMP8+eGFR-199951 02/24/2025 Next Appt Details Provider Name:RYAN MAURICIO, 12/02/2025 01:45:00 PM, [address] [place] [address], [id number], Insurance Providers Payer Name Payer Address Payer Phone Subscriber Number Group Number Insured Name Patient Relationship to Insured Coverage Start Date Coverage End Date MEDICARE [employer] [address] [facility] [place] [place] [address] [id number] MATT BAILEY Self - patient is the insured 3 [facility] [address] [place], [place] [id number] MATT BAILEY Self - patient is the insured 3 MEDICAL (GENERAL) HISTORY Medical History History ICD Code hypertension asthma carpal tunnel bilateral Type 2 diabetes mellitus GERD History of prostate cancer. Urologist Dr. Holland. Status post external beam radiation with 18 months of hormone therapy. Diagnosis 2020 Hyperlipidemia Initiation status COVID 2 sh ots. Flu shot q. year. Tdap 2018. Pneumovax x1. Shingrix July Ultrasound of the abdomen February 2020 fatty liver Colonoscopy July 2016 Dr. Nimo clark July 2026 Check echo July 2023 norm al with the exception of a borderline sinus of Valsalva at 4.0 cm Rectal fissure surgery October [address] of the abdomen and pelvis March 2024 for right-sided kidney stone with mild hydronephrosis and also noted to be a left L5 area indeterminate CT of the abdomen January 2025 negative Bone scan May 2024 negative Surgical History Surgery Date(Month/Year) left total knee replacement 01/17/15 Hospitalization History Reason Date(Month/Year)
== END 2025-08-13 13:17 | disposition home or self-care (01) ==
LOC: HO.US 13:16
PROVIDERS: PCP Internal Medicine; Visit Provider Nurse Practitioner Family
DX: N20.0 Calculus of kidney (principal)
CPT/HCPCS: 76775

== ENCOUNTER → 2025-08-13 13:18 | Outpatient (BNV) | payer MEDICARE, OTHER, SELFPAY | PROVIDERS: PCP Internal Medicine; Visit Provider Radiology Diagnostic Radiology | DX: N20.0 Calculus of kidney (principal) | CPT/HCPCS: 76775 ==

== ENCOUNTER 2025-08-19 08:11 | Outpatient (AMB) | payer MEDICARE, OTHER, SELFPAY ==
--- NOTE | 2025-08-19 08:16 | A.OFFVIS_ITS ---
Intake Visit Reasons: 6m/US/PSA Intake Note: Patient is present for 6M/US/PSA Urology Medication:TADALAFIL,ALLOPURINOL Antibiotic Allergy:NONE Blood Thinner:NONE Roulette Dealer Required: No Allergies No Known Allergies Allergy (Verified 08/19/25 09:06) Medication List - Last Reconciled 08/19/25 by MADISON oGnzalez-SHILOH albuterol sulfate 90 mcg/actuation 2 puffs inhalation QID PRN allopurinol 300 mg PO DAILY blood sugar diagnostic As directed empagliflozin (Jardiance) 10 mg PO DAILY fenofibrate 54 mg PO DAILY fluticasone propionate 110 mcg/actuation (Flovent HFA) 1 puff PO BID insulin glargine 18 units subcut QPM lisinopril 10 mg PO DAILY metformin ER 1 tab PO BID metoprolol succinate ER 25 mg PO DAILY montelukast 10 mg PO QPM omeprazole 20 mg PO BID pen needle, diabetic As directed phenazopyridine (Azo Urinary Pain Relief) 199 mg (2 x 99.5 mg) PO BID-TID PRN rosuvastatin 20 mg PO DAILY semaglutide (Ozempic) mg subcut tadalafil (Cialis) 15 mg (1.5 x 10 mg) PO .PRN 30 days tadalafil (Cialis) 5 mg PO DAILY 90 days HPI Comments Details: Rex is a very pleasant 69-year-old male patient of Dr. Villafuerte. He has a past medical history of gout, arthritis, back pain, sleep apnea unable to tolerate CPAP, asthma, BPH, GERD, diabetes, hypercholesteremia, and prostate cancer. He presents to the office today for follow-up of his nephrolithiasis and prostate cancer. In discussion with the patient today reports to be doing and feeling well. He denies having had any bothersome urinary issues or concerns since his last office visit here. Recent renal imaging results were reviewed with the patient today. 08/21 bilateral kidneys are normal in size, contour, and echogenicity. No hydronephrosis, renal calculi, or lesions noted bilaterally. Normal renal ultrasound. Patient with a previous surgical history for nephrolithiasis with Dr. Akhil Hernandez 06/05/24. Patient underwent right-sided ureteroscopy and stent placement. Previous workup has included a Litholink 02/19 that noted suboptimal urine volume of 2 L at which time we discussed attempting to increase output to 2.5 L as well as considering a low-salt diet. Patient with a previous history of prostate cancer and question of possible lesion on previous CT at which time a bone scan was ordered for further assessment ev aluation 06/20 noted mild nonspecific abnormalities are noted however none of these abnormalities are strongly suspicious for metastatic disease per radiology report. He discusses his increase in water consumption. He denies any bothersome urinary issues or concerns at this time. He denies urinary urgency, urinary frequency, incontinence, nocturia, hematuria, dysuria, foul smelling urine, changes to urinary stream, fever, and or chills. In office urinalysis results reviewed with the patient today. He is happy with his current voiding parameters. He otherwise offers no other issues or concerns at this time. Labs are as follows: PSA: 02/19 <0.1, 08/21 <0.1 Testosterone: 02/19 450, 08/21 406 Free testosterone: 02/19 4.6, 08/21 4.3. Continue three-month follow-up till 2 years from completion of therapy After 2 years of completion of therapy will continue monitoring PSA every 6 months for 5 years Prostate cancer June 2021 PSA 4.5 [place] 4+4 - initial therapy 18 month GnRH with external beam radiation at [facility] completed December 2021 - Last GnRH 10/18 PSA 03/18 0.1 T 11, 06/18 0.1 T 3, 10/18 0.1 T3, 01/17 0.1 T3, 08/19 PSA <0.1, T<3, 12/21 PSA <0.1, T 36, 04/20 PSA <0.1, T 167, 07/21 PSA <0.1, T 267, 02/19 PSA <0.1, T 450 Initial therapy external beam radiation with 18 months hormone therapy via [facility] 01/[address] Holland June 2021 Initial PSA at diagnosis 4.5 Histologic type: Adenocarcinoma; acinar type Histologic grade:? Kyle score: 4+4=8? % of pattern 4: 100%? % of pattern 5: 0% Grade group: 4 Tumor quantitation:? Number cores positive: 3? Total number of cores: 12? % of tissue involved: 5-10% of all tissue examined - left mid lateral 30%, left apex lateral 30%, left apex medial 20% - Total - 7% Periprostatic fat inv.: Not identified, Seminal vesicle inv.: Not identified, Perineural inv.: Present, LVI: Not identified Staging - 08/17 prostate MRI with 1.7 cm left apical posterior lesion, irregularity of prostate bowel injury suggestive of ISAURA, 1.4 cm pelvic sidewall node noted - 08/17 bone scan no evidence of disease. [facility] Medical History Gout Arthritis Back pain Sleep apnea Asthma COVID-19 vaccine series completed COVID-19 Failure of attempted procedure BPH (benign prostatic hyperplasia) GERD (gastroesophageal reflux disease) Diabetes Elevated cholesterol Surgical History History of esophagogastroduodenoscopy (EGD) H/O colonoscopy History of total left knee replacement Social History Household Members: Spouse Housing: House Are you a primary assistant child care teacher to a significant other at home: No Do you presently have visiting nurse or other home services: No Patient Tobacco Use Status: Former Tobacco user Tobacco use type: Cigarette Second Hand Smoke Exposure: No Review of Systems Const Reports as per HPI Eyes Reports no additional complaints ENT Reports no additional complaints Card Reports as per [facility] Resp Reports as per [facility] GI Reports as per HPI Reports as per HPI Neuro Reports no additional complaints Psych Reports no additional complaints Endo Reports as per HPI Physical Exam Const General: cooperative, healthy appearing, comfortable, no acute distress, well developed, alert and awake Orientation/consciousness: patient oriented x3 Limitations: no limitations HEENT Head: Yes normal to inspection, Yes normocephalic and Yes atraumatic Ears: hearing grossly normal bilaterally Eyes General: appearance normal, both eyes and all related structures Neck Neck: Yes normal visual inspection and Yes trachea midline Chest Chest palpation & inspection: normal inspection of the chest Resp Effort & Inspection: normal respiratory effort and able to speak in complete sentences Cardio Rate: regular rate GI Inspection: Yes normal to inspection General: Yes no CVA tenderness Back/Spine/Pelvis Back: no CVA tenderness Skin General skin exam: no rashes or lesions noted Neuro General: patient oriented x3 Extrem General: Yes normal to inspection Psych Appearance: grossly normal and well kempt Mental Status: mental status grossly normal Speech and movement: Normal speech and movement present and Clear speech present Affect: normal affect Attitude: cooperative Thought process: Normal thought process present Thought content: Normal thought content present Insight: Fair insight present (Psych) Judgement: Fair judgement present (Psych) Results AMB Urinalysis, Automated UA Leukoctes 0 Franki/uL Last Edit by ROSE Grijalva on 08/19/25 08:31 UA Nitrite Negative Last Edit by Elisha Leiva CCM on 08/19/25 08:31 UA Urobilinogen 0.2 mg/dL Last Edit by Elisha Leiva CCM on 08/19/25 08:3 1 UA Protein 0 mg/dL Last Edit by Elisha Leiva [facility] on 08/19/25 08:31 UA pH 6.0 Last Edit by Elisha Leiva [facility] on 08/19/25 08:31 UA Blood 0 Bryson/uL Last Edit by Elisha Leiva CCM on 08/19/25 08:31 UA Specific Filley 1.015 Last Edit by Elisha Leiva [facility] on 08/19/25 08: 31 UA Ketone Negative Last Edit by Elisha Leiva [facility] on 08/19/25 08:31 UA Bilirubin 0 mg/dL Last Edit by Elisha Leiva [facility] on 08/19/25 08:31 UA Glucose 1000 mg/dL Last Edit by Elisha Leiva [facility] on 08/19/25 08:31 Results Reviewed Results Reviewed: Laboratory Last Values Urine pH (Auto) 6.0 08/19/25 08:30 Specific Filley (Auto) 1.015 08/19/25 08:30 Urine Protein (Auto) 0 mg/dL 08/19/25 08:30 Glucose (UA)(Auto) 1000 mg/dL 08/19/25 08:30 Urine Ketones (Auto) Negative 08/19/25 08:30 Urine Blood (Auto) 0 Bryson/uL 08/19/25 08:30 Urine Nitrite (Auto) Negative 08/19/25 08:30 Urine Bilirubin (Auto) 0 mg/dL 08/19/25 08:30 Urine Urobilinogen (Auto) 0.2 mg/dL 08/19/25 08:30 Leukocyte Esterase (Auto) 0 Franki/uL 08/19/25 08:30 Date of Service: 08/13/25 Procedure(s): US renal BI FINDINGS: RIGHT KIDNEY: 12.0 x 7.0 x 5.8 cm (SAG x AP x TRV). The kidney is normal in size, contour, and echogenicity. Renal cortical thickness is normal. No calculi or focal parenchymal lesions. No hydronephrosis. LEFT KIDNEY: 11.7 x 6.7 x 5.9 cm (SAG x AP x TRV). The kidney is normal in size, contour, and echogenicity. Renal cortical thickness is normal. No calculi or focal parenchymal lesions. No hydronephrosis. IMPRESSION: Normal renal ultrasound. Assessment & Plan Assessment & Plan (1) Prostate cancer: Comment: June 2021 high-grade prostate cancer [place] 8 - EXBRT and hormone therapy Code(s): C61 - Malignant neoplasm of prostate Category: Medical (2) Elevated PSA: Code(s): R97.20 - Elevated prostate specific antigen [PSA] Category: Medical (3) Erectile dysfunction: Code(s): N52.9 - Male erectile dysfunction, unspecified Category: Medical (4) Weak urinary stream: Code(s): R39.12 - Poor urinary stream Category: Medical (5) BPH w urinary obs/LUTS: Code(s): N40.1 - Benign prostatic hyperplasia with lower urinary tract symptoms; N13.8 - Other obstructive and reflux uropathy Category: Medical (6) Urinary urgency: Code(s): R39.15 - Urgency of urination Category: Medical (7) Nephrolithiasis: Code(s): N20.0 - Calculus of kidney Category: Medical Plan In office urinalysis results reviewed with the patient today; as noted above. Recent renal imaging results with the patient today; as noted above. Recent PSA and testosterone results reviewed with the patient today; as noted above. He currently denies any bothersome urinary issues or concerns. He reports be happy with current voiding parameters. We will continue with surveillance monitoring. Continue Cialis as discussed and prescribed. All questions were answered. Follow-up in 6 months with imaging and labs; or sooner with any issues, concerns, and or questions. Orders: Orders AMB Urinalysis Automated Today Z13.9 - Encounter for screening, unspecified US renal BI 6 Months N20.0 - Calculus of kidney Prostate Specific Antigen 6 Months C61 - Malignant neoplasm of prostate Testosterone, Free/Total 6 Months C61 - Malignant neoplasm of prostate Patient Instructions: The patient had an opportunity to ask questions regarding the treatment plan. All questions were answered. Physical exam, labs, and imaging were discussed and reviewed in detail. As well as risks, benefits, and discussion of treatment choices. No major barriers to understanding were identified. The patient expressed understanding and agreement with the above treatment plan. The patient was made aware they should contact our office by phone for worsening of their current condition, the appearance of new symptoms, or with any questions or concerns. Compliance is encouraged with any medications and follow up testing that is ordered. It is a privilege to be allowed the opportunity to participate in? your urological care.? Again, if you have any questions or concerns If you have any questions or concerns please do not hesitate to contact me. The office is [phone]. This note is constructed using voice recognition software. While every effort has been made to ensure accuracy health promotion manager errors may have been included. Yours sincerely, KAYLENE Gonzalez Coding Level of Care Code Est Pt Level 3 (42517) Complex EM visit Add On G2211 Diagnoses Prostate cancer C61 Elevated PSA R97.20 Erectile dysfunction N52.9 Weak urinary stream R39.12 BPH w urinary obs/LUTS N40.1; N13.8 Urinary urgency R39.15 Nephrolithiasis N20.0
== END 2025-08-19 09:05 | disposition home or self-care (01) ==
LOC: HO.HUSH 08:11
PROVIDERS: PCP Internal Medicine; Visit Provider Nurse Practitioner Family
DX: Z13.9 Encounter for screening, unspecified (principal)

== ENCOUNTER → 2025-08-19 08:11 | Outpatient (BNVA) | payer MEDICARE, OTHER, SELFPAY | PROVIDERS: PCP Internal Medicine; Visit Provider Nurse Practitioner Family | DX: C61 Malignant neoplasm of prostate (principal); R97.20 Elevated prostate specific antigen [PSA]; Z13.9 Encounter for screening, unspecified | CPT/HCPCS: 81003; 99212 ==